=== PATIENT | female | born 1995 | race Two or more races ===

== ENCOUNTER 2024-01-20 16:54 | Inpatient (IN) | payer MEDICAID, SELFPAY ==
--- NOTE | ~2024-01-20 | XR_ITS ---
EXAMINATION: XR ABDOMEN KUB CLINICAL INDICATION: Constipation. COMPARISON: None available. TECHNIQUE: AP view of the abdomen. FINDINGS: There is moderate scattered stool throughout the colon without distention. The small bowel loops are normal caliber. No organomegaly. No gross bony abnormality. XR/XR KUB IMPRESSION: Moderate constipation. No acute process seen.
[2024-01-20 17:41] VITALS: BMI 28.6
[2024-01-20] MEDS: Acetaminophen 325 MG TABLET 650 MG PO (18:03)
--- NOTE | 2024-01-20 18:23 | PC.NURSE ---
Kel arrived as a direct admit from [facility]. She is Malay speaking only and during nurse to nurse and in paperwork they were questioning internal preoccupation vs cognitive delay. electrical contacts adjuster arrived and Kel was changed over and skin assessment was completed. Skin assessment was WNL. She was pleasant during the process but with limited communication even with the air technician. Poor historian and unable to give much history. Meds entered with MD based on medications given at [facility]. Medical history significant for type 2 diabetes no sliding scale given at [facility] but PT was given 15U lantus at . Paperwork indicates she was recently at [facility] as an iploc and was recently discharged home with family who report she was not sleeping, self dialoguing and having increased agitation. RN from sending facility reports she was quiet and in good behavioral control with limited communication. She was treated for UTI with keflex starting 01/15 with last dose given 01/19 in the AM. Kel signed a CV with the provider and an air technician. She is denying SI and verbalized to the provider she understood she was here for mental health and psychosis. Paperwork and further admission assessments to be completed with incoming shift.
[2024-01-20 18:58] VITALS: BP 131/76; PULSE 101; RESP 18; TEMP 36.9; O2SAT 98
[2024-01-20 20:08] VITALS: BP 128/72; PULSE 104; RESP 16; TEMP 37.1; O2SAT 96
[2024-01-20] MEDS: chlorproMAZINE HCl 100 MG TABLET 200 MG PO (20:38)
[2024-01-21 07:35] VITALS: BP 106/60; PULSE 76; RESP 16; TEMP 36.6; O2SAT 97
[2024-01-21 09:57] VITALS: BP 106/60; PULSE 76
[2024-01-21] MEDS: Propranolol HCL 10 MG TABLET PO (09:57)
[2024-01-21] MEDS: Empagliflozin 10 MG TABLET PO (09:59)
[2024-01-21 10:08] LABS: Glucose, Whole Blood 100 mg/dL (60-115)
--- NOTE | 2024-01-21 11:39 | P.CONHOSP_ITS ---
History of Present Illness Data of Consult Service Date: 01/21/24 Primary Care Provider: Unknown Physician HPI Reason for consult: Admission H&P Pt is a 28-year-old Romansh speaking female with a PMH significant for?d epression, anxiety, and bipolar 1 disorder who is admitted to [facility]3 psychiatry unit for disorganized and irrational behavior per family. Patient apparently was recently discharged from a 3 month inpatient psychiatric hospitalization at [facility]. Per family, patient has appeared to be responding to internal stimuli and has been confrontational and argumentative over things that have not occurred. Medical consult for admission H&P. Patient seen and evaluated with flame burner services. Patient overall minimally communicative and only selectively answering ROS queries with yes or no . Likely responding to internal stimuli. Pt denies any significant PMH or any acute medical complaints. Labs reviewed from [facility], significant for positive UA. Otherwise grossly unremarkable. Vitals stable. Review of Systems Review of Systems: Patient denies any acute medical complaints at this time [facility] Social History Household Members: Other Household Members Other:: parents Housing: House Do you presently have visiting nurse or other home services: No Patient Tobacco Use Status: Tobacco use Unknown Use of substances other than those prescribed or required for medical reasons: Unknown Currently Displaying Signs/Symptoms of Drug Intoxication Withdrawal: No Any prior treatment program specific to substance use: No Spiritual Healthcare Practices: unknown d/t mental status Advance Directives: No Advance Directives Information Provided: No Do you have a plan to hurt others: No Plan Recently lost weight without trying: No How much weight loss: Not applicable Eating poorly because of decreased appetite: No Nutrition screen score: 0 Nutrition Risks: No Nutritional Risk Patient : No : No Meds Allergies Allergy/AdvReac Type Severity Reaction Status Date / Time No Known Allergies Allergy Verified 01/20/24 17:37 Active Medications: Current Medications Acetaminophen (Acetaminophen 325 Mg Tablet) 650 mg PO Q6H PRN PRN Reason: Headache/Pain Mild Scale (1-3) Last Admin: 01/20/24 18:03 Dose: 650 mg Al Hydroxide/Mg Hydroxide (Magnesium Hydrox/Alum Hydrox 30 Ml Oral.Susp) 30 ml PO Q6H PRN PRN Reason: Heartburn/Nausea Chlorpromazine HCl (Chlorpromazine Hcl 100 Mg Tablet) 200 mg PO BEDTIME [facility] Last Admin: 01/20/24 20:38 Dose: 200 mg Empagliflozin (Empagliflozin 10 Mg Tablet) 10 mg PO DAILY [facility] Last Admin: 01/21/24 09:59 Dose: 10 mg Hydroxyzine HCl (Hydroxyzine Hcl 25 Mg Tablet) 25 mg PO Q6H PRN PRN Reason: Anxiety Lorazepam (Lorazepam 1 Mg Tablet) 1 mg PO DAILY PRN PRN Reason: moderate anxiety Magnesium Hydroxide (Milk Of Magnesia 30 Ml Oral.Susp) 30 ml PO DAILY PRN PRN Reason: Constipation Nicotine (Nicotine 21 Mg Patch.Td24) 21 mg TRANSDERMA DAILY PRN PRN Reason: smoking cessation Nicotine Polacrilex (Nicotine Polacrilex 2 Mg Gum) 4 mg BUCCAL Q2H PRN PRN Reason: nicotine cravings Olanzapine (Olanzapine 5 Mg Tablet) 5 mg PO TID PRN PRN Reason: agitation Propranolol HCl (Propranolol Hcl 10 Mg Tablet) 10 mg PO DAILY [facility]; Protocol Last Admin: 01/21/24 09:57 Dose: 10 mg Trazodone HCl (Trazodone Hcl 50 Mg Tablet) 50 mg PO BEDTIME MRX1 PRN PRN Reason: Insomnia Physical Exam Vital Signs and Narrative: Vital Signs: Last Vital Signs Temp 97.8 F 01/21/24 07:35 Pulse 76 01/21/24 09:57 Resp 16 01/21/24 07:35 BP 106/60 01/21/24 09:57 Pulse Ox 97 01/21/24 07:35 O2 Del Method Room Air 01/21/24 07:35 BMI result Body Mass Index 28.6 General: AOx3, no acute distress Resp: CTA bilaterally CVS: S1, S2, RRR GI: +BS, NT, no distention Skin: Warm, dry Neuro: Cranial nerves II-XII grossly intact bilaterally. Motor grossly intact bilaterally Extremities: No edema Psych: Selectively answering queries with one-word responses Results Labs Labs: Laboratory Results - last 24 hr 01/21/24 09:56 POC Glucose 100 Assessment and Plan (1) Medical clearance for psychiatric admission: Status: Acute Plan Pt is a 28-year-old Romansh speaking female with a PMH significant for?depression, anxiety, and bipolar 1 disorder who is admitted to psychiatry unit for disorganized and irrational behavior per family. Patient apparently was recently discharged from a 3 month inpatient psychiatric hospitalization at [facility]. Per family, patient has appeared to be responding to internal stimuli and has been confrontational and argumentative over things that have not occurred. Medical consult for admission H&P. Mood disorder Per Psychiatry Patient otherwise has known significant PMH, not on home medications, and has no acute medical concerns at this time. Will sign off. Thank you for allowing us to participate in the care of this patient. Please re-consult if any acute issue or need arises.
--- NOTE | 2024-01-21 13:57 | P.HPPS_ITS ---
HPI Date of Service: 01/21/24 Chief Complaint: Adjustment disorder HPI Narrative: per crisis eval, pt presented to [facility] ED with her step-father and her brother due to their concerns for her behavior at home. she was described as being more confrontational and arguing over things that have not occurred. step-father was concerned she may not have been taking her medications or that since she was recently discharged from another inpatient stay, medication changes have not been working for her. it was reported she may not have slept for several nights after leaving her most recent inpatient stay. pt denied psych Sx but appeared paranoid to crisis staff, apparently RIS and laughing inappropriately. she did report SI with plan to jump from family's second floor porch prior to arrival in the ED but denied SI once in the ED. labs concerning for UTI, given keflex in ED. on interview on mental health unit, pt largely non-verbal. when verbal very soft responses, nearly uniformly mono-syllabic. does communicate somewhat with nods and shakes of the head. does not provide answers to most questions, but does indicate she has no SI/HI/AVH. however, she appears distracted quite often and slowed, and also had several instances of spontaneous laughing. she was i nformed of plan to continue her on her home medications for now, to which she did not object. Past Psychiatric History: hosps: pt reports 2-3 prior. reportedly was at [facility] for 3 months just prior to current presentation. SA: pt indicates in the affirmative but cannot recall how many or when SIB: pt indicates yes, but does not elaborate. per notes, h/o punching self. outpt: unknown Medical Evaluation Reviewed: Hospitalist Julien Pending [facility] Family History: unknown Social History: lives with her mother, brother, and step-father. came from [place] two years ago. Substance History: tobacco - denies alcohol - denies cannabis - indicates she uses denies use of cocaine, opioids, other substances of abuse Trauma History: unknown Diagnostics Vital Signs (24Hr): Vital Signs - 24 hr 01/20/24 18:58 01/20/24 20:08 01/21/24 07:35 Temperature 98.4 F 98.7 F 97.8 F Pulse Rate 101 H 104 H 76 Respiratory Rate 18 16 16 Blood Pressure 131/76 128/72 106/60 Pulse Oximetry 98 96 97 Oxygen Delivery Method Room Air Room Air Room Air 01/21/24 09:57 Temperature Pulse Rate 76 Respiratory Rate Blood Pressure 106/60 Pulse Oximetry Oxygen Delivery Method BMI result Body Mass Index 28.6 Labs Labs: Laboratory Results - last 48 hr 01/21/24 09:56 POC Glucose 100 Meds/Allergies Allergies Allergies Allergy/AdvReac Type Severity Reaction Status Date / Time No Known Allergies Allergy Verified 01/20/24 17:37 Mental Status Exam Mental Status Exam Narrative: adequately dressed and groomed, hospital blanket draped over her head. dubiously cooperative with interview. remains physically present but appears to have difficulty answering questions. no PMA/PMR. speech very sparse, very soft. thoughts appear often blocked, but apparently linear in response to questions. often communicates by nodding or shaking her head rather than verbally. affect generally constricted with some periods of bizarre smiling and laughter. pt made no answer to inquiries on her mood state. she denied SI/HI/AVH. Assessment & Plan Assessment & Plan (1) Bipolar I disorder with mood-congruent psychotic features: Status: Acute Code(s): F31.9 - Bipolar disorder, unspecified Plan at admission, pt was started on thorazine 200 QHS while zyprexa 20 QHS was DCed, reasons unclear. continue thorazine for now until better understood. pt does not appear lithium toxic and renal fxn WNL. will check lithium tomorrow night. restart/continue home medications otherwise. Patient educated on: medication risk/benefits Reason for continued inpatient stay Substantial Risk for: inability to function Statement Statement: I have reviewed the history and physical and performed a pertinent examination on my patient. No changes have occurred unless specified. If the History and Physical was not performed prior to admission, the Hospitalist's service will be consulted for completing the admission physical. Time Spent With Patient Time: Total time managing care of this patient today __55__ minutes.
[2024-01-21 17:50] LABS: Glucose, Whole Blood 146 mg/dL (60-115)
[2024-01-21 19:40] VITALS: BP 121/74; PULSE 73; RESP 14; TEMP 36.4; O2SAT 100
[2024-01-21 20:31] LABS: Glucose, Whole Blood 137 mg/dL (60-115)
[2024-01-21] MEDS: Lithium Carbonate ER 300 MG TABLET.ER 600 MG PO (20:35)
[2024-01-21] MEDS: chlorproMAZINE HCl 100 MG TABLET 200 MG PO (20:36)
[2024-01-22 09:08] LABS: Glucose, Whole Blood 113 mg/dL (60-115)
--- NOTE | 2024-01-22 09:31 | HO.PSYCHPN ---
Subjective Subjective Date of Service: 01/22/24 Reason For Visit: Adjustment disorder Subjective Notes: Conditional Voluntary Interim History: Reviewed with Dr. Palmer. Met with washer engineer helper present. Pt spontaneously laughing at times; appears to be responding to internal stimuli. Guarded. Responding with one words answers to questions. Pt reports feeling okay . denies SI/HI/VH/AH. keeping to self. Medication Compliance: Yes Side effects from medications: No Attending Groups: No Review of Systems Review of Systems Patient denies any acute medical complaints at this time Mental Status Exam Mental Status Exam Narrative: Pt is alert and oriented; behavior is calm, guarded; dressed in hospital attire; mood is described as okay ; eye contact appropriate; Speech is normal rate, low volume and not pressured; laughing spontaneously when asked questions, does not answer as to why she is laughing; denies SI/HI/VH/AH. Diagnostics Vital Signs (24Hr): Vital Signs - 24 hr 01/21/24 09:57 01/21/24 19:40 Temperature 97.6 F Pulse Rate 76 73 Respiratory Rate 14 Blood Pressure 106/60 121/74 Pulse Oximetry 100 Oxygen Delivery Method Room Air BMI result Body Mass Index 28.6 Labs Labs: Laboratory Results - last 48 hr 01/21/24 01/21/24 01/21/24 09:56 17:39 20:27 POC Glucose 100 146 H 137 H 01/22/24 08:48 POC Glucose 113 Medications Medications Current Medications Acetaminophen (Acetaminophen 325 Mg Tablet) 650 mg PO Q6H PRN PRN Reason: Headache/Pain Mild Scale (1-3) Last Admin: 01/20/24 18:03 Dose: 650 mg Al Hydroxide/Mg Hydroxide (Magnesium Hydrox/Alum Hydrox 30 Ml Oral.Susp) 30 ml PO Q6H PRN PRN Reason: Heartburn/Nausea Chlorpromazine HCl (Chlorpromazine Hcl 100 Mg Tablet) 200 mg PO BEDTIME [facility] Last Admin: 01/21/24 20:36 Dose: 200 mg Empagliflozin (Empagliflozin 10 Mg Tablet) 10 mg PO DAILY [facility] Last Admin: 01/21/24 09:59 Dose: 10 mg Hydroxyzine HCl (Hydroxyzine Hcl 25 Mg Tablet) 25 mg PO Q6H PRN PRN Reason: Anxiety [place] Carbonate ([place] Carbonate Er 300 Mg Tablet.Er) 600 mg PO BEDTIME [facility] Last Admin: 01/21/24 20:35 Dose: 600 mg Lorazepam (Lorazepam 1 Mg Tablet) 1 mg PO DAILY PRN PRN Reason: moderate anxiety Magnesium Hydroxide (Milk Of Magnesia 30 Ml Oral.Susp) 30 ml PO DAILY PRN PRN Reason: Constipation Nicotine (Nicotine 21 Mg Patch.Td24) 21 mg TRANSDERMA DAILY PRN PRN Reason: smoking cessation Nicotine Polacrilex (Nicotine Polacrilex 2 Mg Gum) 4 mg BUCCAL Q2H PRN PRN Reason: nicotine cravings Olanzapine (Olanzapine 5 Mg Tablet) 5 mg PO TID PRN PRN Reason: agitation Propranolol HCl (Propranolol Hcl 10 Mg Tablet) 10 mg PO DAILY [facility]; Protocol Last Admin: 01/21/24 09:57 Dose: 10 mg Trazodone HCl (Trazodone Hcl 50 Mg Tablet) 50 mg PO BEDTIME MRX1 PRN PRN Reason: Insomnia Allergies Allergies Allergy/AdvReac Type Severity Reaction Status Date / Time No Known Allergies Allergy Verified 01/20/24 17:37 Assessment & Plan Assessment & Plan (1) Bipolar I disorder with mood-congruent psychotic features: Status: Acute Code(s): F31.9 - Bipolar disorder, unspecified Plan at admission, pt was started on thorazine 200 QHS while zyprexa 20 QHS was DCed, reasons unclear. continue thorazine for now until better understood. pt does not appear lithium toxic and renal fxn WNL. will check lithium tomorrow night. restart/continue home medications otherwise. 01/21: Met with washer engineer helper present. Pt spontaneously laughing at times; appears to be responding to internal stimuli. Guarded. Responding with one words answers to questions. Pt reports feeling okay . denies SI/HI/VH/AH. keeping to self. Patient educated on: diagnosis and medication risk/benefits Reason for continued inpatient stay Substantial Risk for: med/psych decompensation Time Spent With Patient Time: Total time managing care of this patient today _20___ minutes.
[2024-01-22 09:53] VITALS: BP 112/68; PULSE 75; RESP 15; TEMP 36.9; O2SAT 95
[2024-01-22] MEDS: Empagliflozin 10 MG TABLET PO (09:54)
[2024-01-22] MEDS: Propranolol HCL 10 MG TABLET PO (09:54)
[2024-01-22 12:53] LABS: Glucose, Whole Blood 166 mg/dL (60-115)
[2024-01-22 18:04] LABS: Glucose, Whole Blood 111 mg/dL (60-115)
[2024-01-22 20:00] VITALS: BP 138/67; PULSE 66; RESP 16; TEMP 37.1; O2SAT 98
[2024-01-22 20:58] LABS: Glucose, Whole Blood 115 mg/dL (60-115)
[2024-01-22 20:58] LABS: Alanine Aminotransferase 15 U/L (0-31); Albumin Level 4.4 g/dL (3.5-5.0); Alkaline Phosphatase 113 U/L (39-117); Anion Gap 14 (12-20); Aspartate Amino Transferase 13 U/L (5-31); Bilirubin Total 0.3 mg/dL (0.0-1.0); Blood Urea Nitrogen 14 mg/dL (9-16); Carbon Dioxide 25 mmol/L (22-29); Chloride 105 mmol/L (96-108); Cholesterol 174 mg/dL (<200); Creatinine Clr Calc Pharmacy 99.7; Estimated Glomerular Filt Rate > 60; Glucose Fasting 143 mg/dL (60-99); HDL Cholesterol 35 mg/dL (>40); LDL Cholesterol Calculated 70 mg/dL (<100); Potassium 4.2 mmol/L (3.3-5.1); Sodium 140 mmol/L (135-145); Total Protein 8.1 g/dL (6.5-8.0); Triglycerides 346 mg/dL (<150)
[2024-01-22] MEDS: Lithium Carbonate ER 300 MG TABLET.ER 600 MG PO (21:00)
[2024-01-22] MEDS: chlorproMAZINE HCl 100 MG TABLET 200 MG PO (21:00)
[2024-01-22] MEDS: hydrOXYzine HCL 25 MG TABLET PO (21:23)
--- NOTE | 2024-01-23 09:03 | HO.PSYCHPN ---
Subjective Subjective Date of Service: 01/23/24 Reason For Visit: Adjustment disorder Subjective Notes: Conditional Voluntary Interim History: Reviewed with Dr. Palmer. Met with signal and communications maintainer present. Pt laying in bed, staring at wall away from T/W and volumetric weigher. Pt not responding to questions despite numerous attempts. Pt refused medications and vital signs this morning. Medication Compliance: Intermittent Side effects from medications: No Attending Groups: No Review of Systems Review of Systems Yes Unobtainable due to mental status Mental Status Exam Mental Status Exam Narrative: Laying in bed, behavior is calm, guarded; dressed in hospital attire; poor eye contact; Pt declined to speak with T/W, not responding to questions. Diagnostics Vital Signs (24Hr): Vital Signs - 24 hr 01/22/24 09:53 01/22/24 20:00 Temperature 98.5 F 98.7 F Pulse Rate 75 66 Respiratory Rate 15 16 Blood Pressure 112/68 138/67 Pulse Oximetry 95 98 Oxygen Delivery Method Room Air Room Air BMI result Body Mass Index 28.6 Labs 01/22/24 20:21 Labs: Laboratory Results - last 48 hr 01/21/24 01/21/24 01/21/24 09:56 17:39 20:27 Sodium Potassium Chloride Carbon Dioxide Anion Gap BUN Creatinine Estim Creat Clear Calc Estimated GFR POC Glucose 100 146 H 137 H Fasting Glucose Calcium Total Bilirubin AST ALT Alkaline Phosphatase Total Protein Albumin Triglycerides Cholesterol LDL Cholesterol, Calc HDL Cholesterol [place] 01/22/24 01/22/24 01/22/24 08:48 12:35 17:56 Sodium Potassium Chloride Carbon Dioxide Anion Gap BUN Creatinine Estim Creat Clear Calc Estimated GFR POC Glucose 113 166 H 111 Fasting Glucose Calcium Total Bilirubin AST ALT Alkaline Phosphatase Total Protein Albumin Triglycerides Cholesterol LDL Cholesterol, Calc HDL Cholesterol [place] 01/22/24 01/22/24 20:21 20:53 Sodium 140 Potassium 4.2 Chloride 105 Carbon Dioxide 25 Anion Gap 14 BUN 14 Creatinine 0.85 Estim Creat Clear Calc 99.7 Estimated GFR > 60 POC Glucose 115 Fasting Glucose 143 H Calcium 10.0 Total Bilirubin 0.3 AST 13 ALT 15 Alkaline Phosphatase 113 Total Protein 8.1 H Albumin 4.4 Triglycerides 346 H Cholesterol 174 LDL Cholesterol, Calc 70 HDL Cholesterol 35 L [place] 0.10 L Medications Medications Current Medications Acetaminophen (Acetaminophen 325 Mg Tablet) 650 mg PO Q6H PRN PRN Reason: Headache/Pain Mild Scale (1-3) Last Admin: 01/20/24 18:03 Dose: 650 mg Al Hydroxide/Mg Hydroxide (Magnesium Hydrox/Alum Hydrox 30 Ml Oral.Susp) 30 ml PO Q6H PRN PRN Reason: Heartburn/Nausea Chlorpromazine HCl (Chlorpromazine Hcl 100 Mg Tablet) 200 mg PO BEDTIME [facility] Last Admin: 01/22/24 21:00 Dose: 200 mg Empagliflozin (Empagliflozin 10 Mg Tablet) 10 mg PO DAILY [facility] Last Admin: 01/22/24 09:54 Dose: 10 mg Hydroxyzine HCl (Hydroxyzine Hcl 25 Mg Tablet) 25 mg PO Q6H PRN PRN Reason: Anxiety Last Admin: 01/22/24 21:23 Dose: 25 mg [place] Carbonate ([place] Carbonate Er 300 Mg Tablet.Er) 600 mg PO BEDTIME ALFRED Last Admin: 01/22/24 21:00 Dose: 600 mg Lorazepam (Lorazepam 1 Mg Tablet) 1 mg PO DAILY PRN PRN Reason: moderate anxiety Magnesium Hydroxide (Milk Of Magnesia 30 Ml Oral.Susp) 30 ml PO DAILY PRN PRN Reason: Constipation Nicotine (Nicotine 21 Mg Patch.Td24) 21 mg TRANSDERMA DAILY PRN PRN Reason: smoking cessation Nicotine Polacrilex (Nicotine Polacrilex 2 Mg Gum) 4 mg BUCCAL Q2H PRN PRN Reason: nicotine cravings Olanzapine (Olanzapine 5 Mg Tablet) 5 mg PO TID PRN PRN Reason: agitation Propranolol HCl (Propranolol Hcl 10 Mg Tablet) 10 mg PO DAILY [facility]; Protocol Last Admin: 01/23/24 08:12 Dose: Not Given Trazodone HCl (Trazodone Hcl 50 Mg Tablet) 50 mg PO BEDTIME MRX1 PRN PRN Reason: Insomnia Allergies Allergies Allergy/AdvReac Type Severity Reaction Status Date / Time No Known Allergies Allergy Verified 01/20/24 17:37 Assessment & Plan Assessment & Plan (1) Bipolar I disorder with mood-congruent psychotic features: Status: Acute Code(s): F31.9 - Bipolar disorder, unspecified Plan at admission, pt was started on thorazine 200 QHS while zyprexa 20 QHS was DCed, reasons unclear. continue thorazine for now until better understood. pt does not appear lithium toxic and renal fxn WNL. will check lithium tomorrow night. restart/continue home medications otherwise. 01/21: Met with signal and communications maintainer present. Pt spontaneously laughing at times; appears to be responding to internal stimuli. Guarded. Responding with one words answers to questions. Pt reports feeling okay . denies SI/HI/VH/AH. keeping to self. 01/22: Pt laying in bed, staring at wall away from T/W and volumetric weigher. Pt not responding to questions despite numerous attempts. Pt refused medications and vital signs this morning. Continue to encourage medication compliance. Patient educated on: medication risk/benefits Reason for continued inpatient stay Substantial Risk for: med/psych decompensation Time Spent With Patient Time: Total time managing care of this patient today _20___ minutes.
[2024-01-23 12:45] LABS: Estimated Average Glucose 108 mg/dL; Hemoglobin A1c % 5.4 % (<6.0)
[2024-01-23 17:51] LABS: Glucose, Whole Blood 130 mg/dL (60-115)
[2024-01-23 20:00] VITALS: BP 142/67; PULSE 87; RESP 16; TEMP 37.2; O2SAT 97
[2024-01-23] MEDS: hydrOXYzine HCL 25 MG TABLET PO (21:18)
[2024-01-23] MEDS: Lithium Carbonate ER 300 MG TABLET.ER 600 MG PO (21:18)
[2024-01-23] MEDS: chlorproMAZINE HCl 100 MG TABLET 200 MG PO (21:19)
[2024-01-24 07:30] VITALS: BP 106/61; PULSE 83; RESP 16; TEMP 37.2; O2SAT 96
[2024-01-24 09:10] VITALS: BP 108/60; PULSE 83
[2024-01-24] MEDS: Propranolol HCL 10 MG TABLET PO (09:10)
[2024-01-24] MEDS: Empagliflozin 10 MG TABLET PO (09:10)
[2024-01-24 09:28] LABS: Glucose, Whole Blood 127 mg/dL (60-115)
--- NOTE | 2024-01-24 10:05 | HO.PSYCHPN ---
Subjective Subjective Date of Service: 01/24/24 Reason For Visit: Adjustment disorder Subjective Notes: Conditional Voluntary Interim History: Reviewed with Dr. Palmer. Met with spanish interpreter/translator present. Pt laying in bed, staring at T/W and aerial photograph interpreter but not responding to questions despite numerous attempts. Pt medication compliant this morning. observed eating breakfast. keeping to self. Medication Compliance: Intermittent Attending Groups: No Review of Systems Review of Systems Yes Unobtainable due to mental status Mental Status Exam Mental Status Exam Narrative: Laying in bed, behavior is calm, guarded; dressed in hospital attire; intense eye contact; Pt declined to speak with T/W, not responding to questions. Diagnostics Vital Signs (24Hr): Vital Signs - 24 hr 01/23/24 20:00 01/24/24 07:30 01/24/24 09:10 Temperature 98.9 F 98.9 F Pulse Rate 87 83 83 Respiratory Rate 16 16 Blood Pressure 142/67 H 106/61 108/60 Pulse Oximetry 97 96 Oxygen Delivery Method Room Air Room Air BMI result Body Mass Index 28.6 Labs 01/22/24 20:21 Labs: Laboratory Results - last 48 hr 01/22/24 01/22/24 01/22/24 12:35 17:56 20:21 Sodium 140 Potassium 4.2 Chloride 105 Carbon Dioxide 25 Anion Gap 14 BUN 14 Creatinine 0.85 Estim Creat Clear Calc 99.7 Estimated GFR > 60 POC Glucose 166 H 111 Fasting Glucose 143 H Estimat Average Glucose 108 Hemoglobin A1c % 5.4 Calcium 10.0 Total Bilirubin 0.3 AST 13 ALT 15 Alkaline Phosphatase 113 Total Protein 8.1 H Albumin 4.4 Triglycerides 346 H Cholesterol 174 LDL Cholesterol, Calc 70 HDL Cholesterol 35 L [place] 0.10 L 01/22/24 01/23/24 01/24/24 20:53 17:38 09:23 Sodium Potassium Chloride Carbon Dioxide Anion Gap BUN Creatinine Estim Creat Clear Calc Estimated GFR POC Glucose 115 130 H 127 H Fasting Glucose Estimat Average Glucose Hemoglobin A1c % Calcium Total Bilirubin AST ALT Alkaline Phosphatase Total Protein Albumin Triglycerides Cholesterol LDL Cholesterol, Calc HDL Cholesterol [place] Medications Medications Current Medications Acetaminophen (Acetaminophen 325 Mg Tablet) 650 mg PO Q6H PRN PRN Reason: Headache/Pain Mild Scale (1-3) Last Admin: 01/20/24 18:03 Dose: 650 mg Al Hydroxide/Mg Hydroxide (Magnesium Hydrox/Alum Hydrox 30 Ml Oral.Susp) 30 ml PO Q6H PRN PRN Reason: Heartburn/Nausea Chlorpromazine HCl (Chlorpromazine Hcl 100 Mg Tablet) 200 mg PO BEDTIME ALFRED Last Admin: 01/23/24 21:19 Dose: 200 mg Empagliflozin (Empagliflozin 10 Mg Tablet) 10 mg PO DAILY ALFRED Last Admin: 01/24/24 09:10 Dose: 10 mg Hydroxyzine HCl (Hydroxyzine Hcl 25 Mg Tablet) 25 mg PO Q6H PRN PRN Reason: Anxiety Last Admin: 01/23/24 21:18 Dose: 25 mg [place] Carbonate ([place] Carbonate Er 300 Mg Tablet.Er) 600 mg PO BEDTIME ALFRED Last Admin: 01/23/24 21:18 Dose: 600 mg Lorazepam (Lorazepam 1 Mg Tablet) 1 mg PO DAILY PRN PRN Reason: moderate anxiety Magnesium Hydroxide (Milk Of Magnesia 30 Ml Oral.Susp) 30 ml PO DAILY PRN PRN Reason: Constipation Nicotine (Nicotine 21 Mg Patch.Td24) 21 mg TRANSDERMA DAILY PRN PRN Reason: smoking cessation Nicotine Polacrilex (Nicotine Polacrilex 2 Mg Gum) 4 mg BUCCAL Q2H PRN PRN Reason: nicotine cravings Olanzapine (Olanzapine 5 Mg Tablet) 5 mg PO TID PRN PRN Reason: agitation Propranolol HCl (Propranolol Hcl 10 Mg Tablet) 10 mg PO DAILY [facility]; Protocol Last Admin: 01/24/24 09:10 Dose: 10 mg Trazodone HCl (Trazodone Hcl 50 Mg Tablet) 50 mg PO BEDTIME MRX1 PRN PRN Reason: Insomnia Allergies Allergies Allergy/AdvReac Type Severity Reaction Status Date / Time No Known Allergies Allergy Verified 01/20/24 17:37 Assessment & Plan Assessment & Plan (1) Bipolar I disorder with mood-congruent psychotic features: Status: Acute Code(s): F31.9 - Bipolar disorder, unspecified Plan at admission, pt was started on thorazine 200 QHS while zyprexa 20 QHS was DCed, reasons unclear. continue thorazine for now until better understood. pt does not appear lithium toxic and renal fxn WNL. will check lithium tomorrow night. restart/continue home medications otherwise. 01/21: Met with spanish interpreter/translator present. Pt spontaneously laughing at times; appears to be responding to internal stimuli. Guarded. Responding with one words answers to questions. Pt reports feeling okay . denies SI/HI/VH/AH. keeping to self. 01/22: Pt laying in bed, staring at wall away from T/W and aerial photograph interpreter. Pt not responding to questions despite numerous attempts. Pt refused medications and vital signs this morning. Continue to encourage medication compliance. 01/23: Met with spanish interpreter/translator present. Pt laying in bed, staring at T/W and aerial photograph interpreter but not responding to questions despite numerous attempts. Pt medication compliant this morning. observed eating breakfast. keeping to self. Patient educated on: medication risk/benefits Reason for continued inpatient stay Substantial Risk for: med/psych decompensation Time Spent With Patient Time: Total time managing care of this patient today _20___ minutes.
[2024-01-24 12:23] LABS: Glucose, Whole Blood 149 mg/dL (60-115)
[2024-01-24 13:01] LABS: Glucose, Whole Blood 115 mg/dL (60-115)
[2024-01-24 17:21] LABS: Glucose, Whole Blood 102 mg/dL (60-115)
[2024-01-24 20:00] VITALS: BP 128/66; PULSE 92; RESP 16; TEMP 36.9; O2SAT 97
[2024-01-24] MEDS: chlorproMAZINE HCl 100 MG TABLET 200 MG PO (20:38)
[2024-01-24] MEDS: Lithium Carbonate ER 300 MG TABLET.ER 600 MG PO (20:38)
[2024-01-24 20:44] LABS: Glucose, Whole Blood 142 mg/dL (60-115)
[2024-01-24] MEDS: Acetaminophen 325 MG TABLET 650 MG PO (21:29)
[2024-01-25 07:30] VITALS: BP 120/74; PULSE 69; RESP 16; TEMP 36.9; O2SAT 98
[2024-01-25 08:53] LABS: Glucose, Whole Blood 120 mg/dL (60-115)
--- NOTE | 2024-01-25 16:37 | HO.PSYCHPN ---
Subjective Subjective Date of Service: 01/25/24 Reason For Visit: Adjustment disorder Interim History: awake, mute. no change in presentation per staff. Mental Status Exam Mental Status Exam Narrative: Laying in bed, behavior is calm, guarded; dressed in hospital attire; intense eye contact; Pt declined to speak with T/W, not responding to questions. Diagnostics Vital Signs (24Hr): Vital Signs - 24 hr 01/24/24 20:00 01/25/24 07:30 Temperature 98.5 F 98.4 F Pulse Rate 92 69 Respiratory Rate 16 16 Blood Pressure 128/66 120/74 Pulse Oximetry 97 98 Oxygen Delivery Method Room Air Room Air BMI result Body Mass Index 28.6 Labs 01/22/24 20:21 Labs: Laboratory Results - last 48 hr 01/23/24 01/24/24 01/24/24 17:38 09:23 12:18 POC Glucose 130 H 127 H 149 H 01/24/24 01/24/24 01/24/24 12:56 17:14 20:37 POC Glucose 115 102 142 H 01/25/24 08:34 POC Glucose 120 H Medications Medications Current Medications Acetaminophen (Acetaminophen 325 Mg Tablet) 650 mg PO Q6H PRN PRN Reason: Headache/Pain Mild Scale (1-3) Last Admin: 01/24/24 21:29 Dose: 650 mg Al Hydroxide/Mg Hydroxide (Magnesium Hydrox/Alum Hydrox 30 Ml Oral.Susp) 30 ml PO Q6H PRN PRN Reason: Heartburn/Nausea Chlorpromazine HCl (Chlorpromazine Hcl 100 Mg Tablet) 200 mg PO BEDTIME ALFRED Last Admin: 01/24/24 20:38 Dose: 200 mg Empagliflozin (Empagliflozin 10 Mg Tablet) 10 mg PO DAILY ALFRED Last Admin: 01/25/24 15:19 Dose: Not Given Hydroxyzine HCl (Hydroxyzine Hcl 25 Mg Tablet) 25 mg PO Q6H PRN PRN Reason: Anxiety Last Admin: 01/23/24 21:18 Dose: 25 mg [place] Carbonate ([place] Carbonate Er 300 Mg Tablet.Er) 600 mg PO BEDTIME ALFRED Last Admin: 01/24/24 20:38 Dose: 600 mg Lorazepam (Lorazepam 1 Mg Tablet) 1 mg PO DAILY PRN PRN Reason: moderate anxiety Magnesium Hydroxide (Milk Of Magnesia 30 Ml Oral.Susp) 30 ml PO DAILY PRN PRN Reason: Constipation Nicotine (Nicotine 21 Mg Patch.Td24) 21 mg TRANSDERMA DAILY PRN PRN Reason: smoking cessation Nicotine Polacrilex (Nicotine Polacrilex 2 Mg Gum) 4 mg BUCCAL Q2H PRN PRN Reason: nicotine cravings Olanzapine (Olanzapine 5 Mg Tablet) 5 mg PO TID PRN PRN Reason: agitation Propranolol HCl (Propranolol Hcl 10 Mg Tablet) 10 mg PO DAILY ALFRED; Protocol Last Admin: 01/25/24 15:19 Dose: Not Given Trazodone HCl (Trazodone Hcl 50 Mg Tablet) 50 mg PO BEDTIME MRX1 PRN PRN Reason: Insomnia Allergies Allergies Allergy/AdvReac Type Severity Reaction Status Date / Time No Known Allergies Allergy Verified 01/20/24 17:37 Assessment & Plan Assessment & Plan (1) Bipolar I disorder with mood-congruent psychotic features: Status: Acute Code(s): F31.9 - Bipolar disorder, unspecified Plan at admission, pt was started on thorazine 200 QHS while zyprexa 20 QHS was DCed, reasons unclear. continue thorazine for now until better understood. pt does not appear lithium toxic and renal fxn WNL. will check lithium tomorrow night. restart/continue home medications otherwise. 01/21: Met with chief clinical dietitian present. Pt spontaneously laughing at times; appears to be responding to internal stimuli. Guarded. Responding with one words answers to questions. Pt reports feeling okay . denies SI/HI/VH/AH. keeping to self. 01/22: Pt laying in bed, staring at wall away from T/W and manager operations. Pt not responding to questions despite numerous attempts. Pt refused medications and vital signs this morning. Continue to encourage medication compliance. 01/23: Met with chief clinical dietitian present. Pt laying in bed, staring at T/W and manager operations but not responding to questions despite numerous attempts. Pt medication compliant this morning. observed eating breakfast. keeping to self. 01/24: no change in presentation. check lithium level tomorrow delmi. not consistently taking neuroleptics but IS consistently taking lithium. Reason for continued inpatient stay Substantial Risk for: inability to function and rapid decompensation Time Spent With Patient Time: Total time managing care of this patient today __25__ minutes.
[2024-01-25 20:00] VITALS: BP 120/81; PULSE 114; RESP 16; TEMP 36.9; O2SAT 97
[2024-01-25] MEDS: chlorproMAZINE HCl 100 MG TABLET 200 MG PO (20:48)
[2024-01-25] MEDS: Lithium Carbonate ER 300 MG TABLET.ER 600 MG PO (20:49)
[2024-01-26 07:44] VITALS: BP 101/71; PULSE 92; RESP 16; TEMP 36.4; O2SAT 96
--- NOTE | 2024-01-26 16:00 | HO.PSYCHPN ---
Subjective Subjective Date of Service: 01/26/24 Reason For Visit: Adjustment disorder Interim History: mute, perhaps some very faint guttural responses, some head-shaking in response to some questions. answers ambiguous, generally denying problems and without requests or complaints. per staff, mute with ppl, self-dialoguing. per interpreter and translator collateral, he saw her with financial ppl yesterday and she was fully verbal and collaborative. Mental Status Exam Mental Status Exam Narrative: Laying in bed, behavior is calm, guarded; dressed in hospital attire; intense eye contact; Pt declined to speak with T/W, not clearly responding to questions. Diagnostics Vital Signs (24Hr): Vital Signs - 24 hr 01/25/24 20:00 01/26/24 07:44 Temperature 98.4 F 97.5 F Pulse Rate 114 H 92 Respiratory Rate 16 16 Blood Pressure 120/81 101/71 Pulse Oximetry 97 96 Oxygen Delivery Method Room Air Room Air BMI result Body Mass Index 28.6 Labs 01/22/24 20:21 Labs: Laboratory Results - last 48 hr 01/24/24 01/24/24 01/25/24 17:14 20:37 08:34 POC Glucose 102 142 H 120 H Medications Medications Current Medications Acetaminophen (Acetaminophen 325 Mg Tablet) 650 mg PO Q6H PRN PRN Reason: Headache/Pain Mild Scale (1-3) Last Admin: 01/24/24 21:29 Dose: 650 mg Al Hydroxide/Mg Hydroxide (Magnesium Hydrox/Alum Hydrox 30 Ml Oral.Susp) 30 ml PO Q6H PRN PRN Reason: Heartburn/Nausea Chlorpromazine HCl (Chlorpromazine Hcl 100 Mg Tablet) 200 mg PO BEDTIME ALFRED Last Admin: 01/25/24 20:48 Dose: 200 mg Empagliflozin (Empagliflozin 10 Mg Tablet) 10 mg PO DAILY ALFRED Last Admin: 01/26/24 09:32 Dose: Not Given Hydroxyzine HCl (Hydroxyzine Hcl 25 Mg Tablet) 25 mg PO Q6H PRN PRN Reason: Anxiety Last Admin: 01/23/24 21:18 Dose: 25 mg [place] Carbonate ([place] Carbonate Er 300 Mg Tablet.Er) 600 mg PO BEDTIME ALFRED Last Admin: 01/25/24 20:49 Dose: 600 mg Magnesium Hydroxide (Milk Of Magnesia 30 Ml Oral.Susp) 30 ml PO DAILY PRN PRN Reason: Constipation Nicotine (Nicotine 21 Mg Patch.Td24) 21 mg TRANSDERMA DAILY PRN PRN Reason: smoking cessation Nicotine Polacrilex (Nicotine Polacrilex 2 Mg Gum) 4 mg BUCCAL Q2H PRN PRN Reason: nicotine cravings Olanzapine (Olanzapine 5 Mg Tablet) 5 mg PO TID PRN PRN Reason: agitation Propranolol HCl (Propranolol Hcl 10 Mg Tablet) 10 mg PO DAILY ALFRED; Protocol Last Admin: 01/26/24 09:32 Dose: Not Given Trazodone HCl (Trazodone Hcl 50 Mg Tablet) 50 mg PO BEDTIME MRX1 PRN PRN Reason: Insomnia Allergies Allergies Allergy/AdvReac Type Severity Reaction Status Date / Time No Known Allergies Allergy Verified 01/20/24 17:37 Assessment & Plan Assessment & Plan (1) Bipolar I disorder with mood-congruent psychotic features: Status: Acute Code(s): F31.9 - Bipolar disorder, unspecified (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 continue thorazine for now until better understood. pt does not appear lithium toxic and renal fxn WNL. will check lithium tomorrow night. restart/continue home medications otherwise. 01/21: Met with spanish interpreter/translator present. Pt spontaneously laughing at times; appears to be responding to internal stimuli. Guarded. Responding with one words answers to questions. Pt reports feeling okay . denies SI/HI/VH/AH. keeping to self. 01/22: Pt laying in bed, staring at wall away from T/W and interpreter and translator. Pt not responding to questions despite numerous attempts. Pt refused medications and vital signs this morning. Continue to encourage medication compliance. 01/23: Met with spanish interpreter/translator present. Pt laying in bed, staring at T/W and interpreter and translator but not responding to questions despite numerous attempts. Pt medication compliant this morning. observed eating breakfast. keeping to self. 01/24: no change in presentation. check lithium level tomorrow delmi. not consistently taking neuroleptics but IS consistently taking lithium. 01/25: selectively mute. per interpreter and translator collateral, he was with her when financial services met with her yesterday and she was fully verbal and collaborative. labs tonight. continue current mgmt. Reason for continued inpatient stay Substantial Risk for: inability to function Time Spent With Patient Time: Total time managing care of this patient today __25__ minutes.
[2024-01-26 20:00] VITALS: BP 125/89; PULSE 110; RESP 18; TEMP 36.9; O2SAT 99
[2024-01-26] MEDS: chlorproMAZINE HCl 100 MG TABLET 200 MG PO (20:16)
[2024-01-26] MEDS: Lithium Carbonate ER 300 MG TABLET.ER 600 MG PO (20:17)
[2024-01-26 20:34] LABS: Lithium 0.36 mmol/L (0.60-1.20)
[2024-01-26 20:38] LABS: Anion Gap 16 (12-20); Blood Urea Nitrogen 13 mg/dL (9-16); Calcium 9.7 mg/dL (8.4-10.2); Carbon Dioxide 24 mmol/L (22-29); Chloride 104 mmol/L (96-108); Creatinine Clr Calc Pharmacy 111.5; Estimated Glomerular Filt Rate > 60; Glucose Random 112 mg/dL (60-115); Potassium 4.2 mmol/L (3.3-5.1); Sodium 140 mmol/L (135-145)
[2024-01-27 07:35] VITALS: BP 117/64; PULSE 83; RESP 16; TEMP 36.3; O2SAT 96
[2024-01-27 09:28] VITALS: BP 117/64; PULSE 83
[2024-01-27] MEDS: Empagliflozin 10 MG TABLET PO (09:28)
[2024-01-27] MEDS: Propranolol HCL 10 MG TABLET PO (09:28)
[2024-01-27 13:25] VITALS: BMI 28.6
--- NOTE | 2024-01-27 17:32 | HO.PSYCHPN ---
Subjective Subjective Date of Service: 01/27/24 Reason For Visit: Adjustment disorder Interim History: somewhat more communicative today. says she is feeling very tired, attributes the feeling to medications. agreeable to decrease HS thorazine from 200 mg to 150 mg. no other complaints or requests. Mental Status Exam Mental Status Exam Narrative: Laying in bed, behavior is calm, guarded; dressed in hospital attire; intense eye contact; not clearly responding to questions, but some soft utterances and head movements. thoughts apparently linear and logical. affect blunted. mood tired. no SI/HI/AVH expressed. Diagnostics Vital Signs (24Hr): Vital Signs - 24 hr 01/26/24 20:00 01/27/24 07:35 01/27/24 09:28 Temperature 98.4 F 97.4 F Pulse Rate 110 H 83 83 Respiratory Rate 18 16 Blood Pressure 125/89 117/64 117/64 Pulse Oximetry 99 96 Oxygen Delivery Method Room Air Room Air BMI result Body Mass Index 28.6 Labs 01/26/24 20:05 Labs: Laboratory Results - last 48 hr 01/26/24 20:05 Sodium 140 Potassium 4.2 Chloride 104 Carbon Dioxide 24 Anion Gap 16 BUN 13 Creatinine 0.76 Estim Creat Clear Calc 111.5 Estimated GFR > 60 Random Glucose 112 Calcium 9.7 [place] 0.36 L Medications Medications Current Medications Acetaminophen (Acetaminophen 325 Mg Tablet) 650 mg PO Q6H PRN PRN Reason: Headache/Pain Mild Scale (1-3) Last Admin: 01/24/24 21:29 Dose: 650 mg Al Hydroxide/Mg Hydroxide (Magnesium Hydrox/Alum Hydrox 30 Ml Oral.Susp) 30 ml PO Q6H PRN PRN Reason: Heartburn/Nausea Chlorpromazine HCl (Chlorpromazine Hcl 25 Mg Tablet) 150 mg PO BEDTIME ALFRED Empagliflozin (Empagliflozin 10 Mg Tablet) 10 mg PO DAILY ALFRED Last Admin: 01/27/24 09:28 Dose: 10 mg Hydroxyzine HCl (Hydroxyzine Hcl 25 Mg Tablet) 25 mg PO Q6H PRN PRN Reason: Anxiety Last Admin: 01/23/24 21:18 Dose: 25 mg [place] Carbonate ([place] Carbonate Er 300 Mg Tablet.Er) 600 mg PO BEDTIME ALFRED Last Admin: 01/26/24 20:17 Dose: 600 mg Magnesium Hydroxide (Milk Of Magnesia 30 Ml Oral.Susp) 30 ml PO DAILY PRN PRN Reason: Constipation Nicotine (Nicotine 21 Mg Patch.Td24) 21 mg TRANSDERMA DAILY PRN PRN Reason: smoking cessation Nicotine Polacrilex (Nicotine Polacrilex 2 Mg Gum) 4 mg BUCCAL Q2H PRN PRN Reason: nicotine cravings Olanzapine (Olanzapine 5 Mg Tablet) 5 mg PO TID PRN PRN Reason: agitation Propranolol HCl (Propranolol Hcl 10 Mg Tablet) 10 mg PO DAILY ALFRED; Protocol Last Admin: 01/27/24 09:28 Dose: 10 mg Trazodone HCl (Trazodone Hcl 50 Mg Tablet) 50 mg PO BEDTIME MRX1 PRN PRN Reason: Insomnia Allergies Allergies Allergy/AdvReac Type Severity Reaction Status Date / Time No Known Allergies Allergy Verified 01/20/24 17:37 Assessment & Plan Assessment & Plan (1) Bipolar I disorder with mood-congruent psychotic features: Status: Acute Code(s): F31.9 - Bipolar disorder, unspecified (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 continue thorazine for now until better understood. pt does not appear lithium toxic and renal fxn WNL. will check lithium tomorrow night. restart/continue home medications otherwise. 01/21: Met with grocery department manager present. Pt spontaneously laughing at times; appears to be responding to internal stimuli. Guarded. Responding with one words answers to questions. Pt reports feeling okay . denies SI/HI/VH/AH. keeping to self. 01/22: Pt laying in bed, staring at wall away from T/W and animal attendants and trainers. Pt not responding to questions despite numerous attempts. Pt refused medications and vital signs this morning. Continue to encourage medication compliance. 01/23: Met with grocery department manager present. Pt laying in bed, staring at T/W and animal attendants and trainers but not responding to questions despite numerous attempts. Pt medication compliant this morning. observed eating breakfast. keeping to self. 01/24: no change in presentation. check lithium level tomorrow delmi. not consistently taking neuroleptics but IS consistently taking lithium. 01/25: selectively mute. per animal attendants and trainers collateral, he was with her when financial services met with her yesterday and she was fully verbal and collaborative. labs tonight. continue current mgmt. 01/26: mildly more communicative today. lithium level 0.36, BMP WNL. increase lithium dosing tonight. Reason for continued inpatient stay Substantial Risk for: inability to function Time Spent With Patient Time: Total time managing care of this patient today ____ minutes.
[2024-01-27] MEDS: hydrOXYzine HCL 25 MG TABLET PO (18:13)
[2024-01-27 20:00] VITALS: BP 125/83; PULSE 93; RESP 14; TEMP 36.4; O2SAT 100
[2024-01-27] MEDS: chlorproMAZINE HCl 25 MG TABLET 150 MG PO (20:35)
[2024-01-27] MEDS: Lithium Carbonate ER 450 MG TABLET.ER 900 MG PO (21:59)
[2024-01-28 07:40] VITALS: BP 113/62; PULSE 78; RESP 16; TEMP 36.5; O2SAT 96
[2024-01-28 08:46] VITALS: BP 113/62; PULSE 78
[2024-01-28] MEDS: Propranolol HCL 10 MG TABLET PO (08:46)
[2024-01-28] MEDS: Empagliflozin 10 MG TABLET PO (08:46)
--- NOTE | 2024-01-28 16:43 | HO.PSYCHPN ---
Subjective Subjective Date of Service: 01/28/24 Reason For Visit: Adjustment disorder Interim History: sits up in her bed. responsive to questions. a bit more verbal, answering more questions with head nods and shakes. denies any problems, says there is nothing we can do for her right now. per staff, denies depression. endorses anxiety. inappropriate spontaneous laughter. no SI. no acute behaviors. slept 7 hours. observed laughing and talking with a peer. Mental Status Exam Mental Status Exam Narrative: Laying in bed but sits up quickly, behavior is calm, guarded; dressed in hospital attire; intense eye contact; responding more to questions, more soft utterances and head movements. thoughts apparently linear and logical. affect blunted. mood euthymic. no SI/HI/AVH expressed. Diagnostics Vital Signs (24Hr): Vital Signs - 24 hr 01/27/24 20:00 01/28/24 07:40 01/28/24 08:46 Temperature 97.5 F 97.7 F Pulse Rate 93 78 78 Respiratory Rate 14 16 Blood Pressure 125/83 113/62 113/62 Pulse Oximetry 100 96 Oxygen Delivery Method Room Air Room Air BMI result Body Mass Index 28.6 Labs 01/26/24 20:05 Labs: Laboratory Results - last 48 hr 01/26/24 20:05 Sodium 140 Potassium 4.2 Chloride 104 Carbon Dioxide 24 Anion Gap 16 BUN 13 Creatinine 0.76 Estim Creat Clear Calc 111.5 Estimated GFR > 60 Random Glucose 112 Calcium 9.7 [place] 0.36 L Medications Medications Current Medications Acetaminophen (Acetaminophen 325 Mg Tablet) 650 mg PO Q6H PRN PRN Reason: Headache/Pain Mild Scale (1-3) Last Admin: 01/24/24 21:29 Dose: 650 mg Al Hydroxide/Mg Hydroxide (Magnesium Hydrox/Alum Hydrox 30 Ml Oral.Susp) 30 ml PO Q6H PRN PRN Reason: Heartburn/Nausea Chlorpromazine HCl (Chlorpromazine Hcl 25 Mg Tablet) 150 mg PO BEDTIME ALFRED Last Admin: 01/27/24 20:35 Dose: 150 mg Empagliflozin (Empagliflozin 10 Mg Tablet) 10 mg PO DAILY ALFRED Last Admin: 01/28/24 08:46 Dose: 10 mg Hydroxyzine HCl (Hydroxyzine Hcl 25 Mg Tablet) 25 mg PO Q6H PRN PRN Reason: Anxiety Last Admin: 01/27/24 18:13 Dose: 25 mg [place] Carbonate ([place] Carbonate Er 450 Mg Tablet.Er) 900 mg PO BEDTIME ALFRED Last Admin: 01/27/24 21:59 Dose: 900 mg Magnesium Hydroxide (Milk Of Magnesia 30 Ml Oral.Susp) 30 ml PO DAILY PRN PRN Reason: Constipation Nicotine (Nicotine 21 Mg Patch.Td24) 21 mg TRANSDERMA DAILY PRN PRN Reason: smoking cessation Nicotine Polacrilex (Nicotine Polacrilex 2 Mg Gum) 4 mg BUCCAL Q2H PRN PRN Reason: nicotine cravings Olanzapine (Olanzapine 5 Mg Tablet) 5 mg PO TID PRN PRN Reason: agitation Propranolol HCl (Propranolol Hcl 10 Mg Tablet) 10 mg PO DAILY [facility]FR[facility]; Protocol Last Admin: 01/28/24 08:46 Dose: 10 mg Trazodone HCl (Trazodone Hcl 50 Mg Tablet) 50 mg PO BEDTIME MRX1 PRN PRN Reason: Insomnia Allergies Allergies Allergy/AdvReac Type Severity Reaction Status Date / Time No Known Allergies Allergy Verified 01/20/24 17:37 Assessment & Plan Assessment & Plan (1) Bipolar I disorder with mood-congruent psychotic features: Status: Acute Code(s): F31.9 - Bipolar disorder, unspecified (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 continue thorazine for now until better understood. pt does not appear lithium toxic and renal fxn WNL. will check lithium tomorrow night. restart/continue home medications otherwise. 01/21: Met with certification and selection specialist present. Pt spontaneously laughing at times; appears to be responding to internal stimuli. Guarded. Responding with one words answers to questions. Pt reports feeling okay . denies SI/HI/VH/AH. keeping to self. 01/22: Pt laying in bed, staring at wall away from T/W and handbell choir director. Pt not responding to questions despite numerous attempts. Pt refused medications and vital signs this morning. Continue to encourage medication compliance. 01/23: Met with certification and selection specialist present. Pt laying in bed, staring at T/W and handbell choir director but not responding to questions despite numerous attempts. Pt medication compliant this morning. observed eating breakfast. keeping to self. 01/24: no change in presentation. check lithium level tomorrow delmi. not consistently taking neuroleptics but IS consistently taking lithium. 01/25: selectively mute. per handbell choir director collateral, he was with her when financial services met with her yesterday and she was fully verbal and collaborative. labs tonight. continue current mgmt. 01/26: mildly more communicative today. lithium level 0.36, BMP WNL. increase lithium dosing tonight. 01/27: more responsive and verbal today. continue current mgmt. Reason for continued inpatient stay Substantial Risk for: inability to function and rapid decompensation Time Spent With Patient Time: Total time managing care of this patient today ____ minutes.
[2024-01-28] MEDS: Acetaminophen 325 MG TABLET 650 MG PO (18:09)
[2024-01-28 20:35] VITALS: BP 136/92; PULSE 91; RESP 18; TEMP 36.7; O2SAT 99
[2024-01-28] MEDS: chlorproMAZINE HCl 25 MG TABLET 150 MG PO (20:44)
[2024-01-28] MEDS: Lithium Carbonate ER 450 MG TABLET.ER 900 MG PO (20:44)
[2024-01-28 22:41] LABS: Glucose, Whole Blood 163 mg/dL (60-115)
--- NOTE | 2024-01-29 08:16 | HO.PSYCHPN ---
Subjective Subjective Date of Service: 01/29/24 Reason For Visit: Adjustment disorder Interim History: met with patient. Discussed with Nursing. On interactions and laughing to self. Today was guarded. Primarily hiding under the blankets with eyes peeking out. Stated she was okay. Inappropriate laughter. Was internally preoccupied. Medication Compliance: Yes Side effects from medications: No Attending Groups: No Review of Systems Acute medical concerns: No Review of Systems Review of Systems Unremarkable Mental Status Exam Mental Status Exam Narrative: Laying in bed but sits up quickly, behavior is calm, guarded; dressed in hospital attire; intense eye contact; responding more to questions, more soft utterances and head movements. thoughts apparently linear and logical. affect blunted. mood euthymic. no SI/HI/AVH expressed. Diagnostics Vital Signs (24Hr): Vital Signs - 24 hr 01/28/24 08:46 01/28/24 20:35 Temperature 98.0 F Pulse Rate 78 91 Respiratory Rate 18 Blood Pressure 113/62 136/92 H Pulse Oximetry 99 Oxygen Delivery Method Room Air BMI result Body Mass Index 28.6 Labs 01/26/24 20:05 Labs: Laboratory Results - last 48 hr 01/28/24 22:36 POC Glucose 163 H Medications Medications Current Medications Acetaminophen (Acetaminophen 325 Mg Tablet) 650 mg PO Q6H PRN PRN Reason: Headache/Pain Mild Scale (1-3) Last Admin: 01/28/24 18:09 Dose: 650 mg Al Hydroxide/Mg Hydroxide (Magnesium Hydrox/Alum Hydrox 30 Ml Oral.Susp) 30 ml PO Q6H PRN PRN Reason: Heartburn/Nausea Chlorpromazine HCl (Chlorpromazine Hcl 25 Mg Tablet) 150 mg PO BEDTIME ALFRED Last Admin: 01/28/24 20:44 Dose: 150 mg Empagliflozin (Empagliflozin 10 Mg Tablet) 10 mg PO DAILY ALFRED Last Admin: 01/28/24 08:46 Dose: 10 mg Hydroxyzine HCl (Hydroxyzine Hcl 25 Mg Tablet) 25 mg PO Q6H PRN PRN Reason: Anxiety Last Admin: 01/27/24 18:13 Dose: 25 mg [place] Carbonate ([place] Carbonate Er 450 Mg Tablet.Er) 900 mg PO BEDTIME ALFRED Last Admin: 01/28/24 20:44 Dose: 900 mg Magnesium Hydroxide (Milk Of Magnesia 30 Ml Oral.Susp) 30 ml PO DAILY PRN PRN Reason: Constipation Nicotine (Nicotine 21 Mg Patch.Td24) 21 mg TRANSDERMA DAILY PRN PRN Reason: smoking cessation Nicotine Polacrilex (Nicotine Polacrilex 2 Mg Gum) 4 mg BUCCAL Q2H PRN PRN Reason: nicotine cravings Olanzapine (Olanzapine 5 Mg Tablet) 5 mg PO TID PRN PRN Reason: agitation Propranolol HCl (Propranolol Hcl 10 Mg Tablet) 10 mg PO DAILY ALFRED; Protocol Last Admin: 01/28/24 08:46 Dose: 10 mg Trazodone HCl (Trazodone Hcl 50 Mg Tablet) 50 mg PO BEDTIME MRX1 PRN PRN Reason: Insomnia Allergies Allergies Allergy/AdvReac Type Severity Reaction Status Date / Time No Known Allergies Allergy Verified 01/20/24 17:37 Assessment & Plan Assessment & Plan (1) Bipolar I disorder with mood-congruent psychotic features: Status: Acute Code(s): F31.9 - Bipolar disorder, unspecified (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 continue thorazine for now until better understood. pt does not appear lithium toxic and renal fxn WNL. will check lithium tomorrow night. restart/continue home medications otherwise. 01/21: Met with assistant accounting manager present. Pt spontaneously laughing at times; appears to be responding to internal stimuli. Guarded. Responding with one words answers to questions. Pt reports feeling okay . denies SI/HI/VH/AH. keeping to self. 01/22: Pt laying in bed, staring at wall away from T/W and facilities clerk. Pt not responding to questions despite numerous attempts. Pt refused medications and vital signs this morning. Continue to encourage medication compliance. 01/23: Met with assistant accounting manager present. Pt laying in bed, staring at T/W and facilities clerk but not responding to questions despite numerous attempts. Pt medication compliant this morning. observed eating breakfast. keeping to self. 01/24: no change in presentation. check lithium level tomorrow delmi. not consistently taking neuroleptics but IS consistently taking lithium. 01/25: selectively mute. per facilities clerk collateral, he was with her when [facility] services met with her yesterday and she was fully verbal and collaborative. labs tonight. continue current mgmt. 01/26: mildly more communicative today. lithium level 0.36, BMP WNL. increase lithium dosing tonight. 01/27: more responsive and verbal today. continue current mgmt. 01/29/2024: lithium just increased 01/27/2024. No changes to current plan Reason for continued inpatient stay Substantial Risk for: inability to function Time Spent With Patient Time: Total time managing care of this patient today ____ minutes.
[2024-01-29 09:57] VITALS: BP 107/61; PULSE 89; RESP 18; TEMP 36.8; O2SAT 97
[2024-01-29] MEDS: Empagliflozin 10 MG TABLET PO (09:57)
[2024-01-29] MEDS: Propranolol HCL 10 MG TABLET PO (09:57)
[2024-01-29 19:35] VITALS: BP 124/81; PULSE 77; RESP 18; TEMP 36.8; O2SAT 100
[2024-01-29] MEDS: chlorproMAZINE HCl 25 MG TABLET 150 MG PO (20:20)
[2024-01-29] MEDS: Lithium Carbonate ER 450 MG TABLET.ER 900 MG PO (20:21)
[2024-01-30 07:30] VITALS: BP 113/65; PULSE 88; TEMP 36.4; O2SAT 96
[2024-01-30] MEDS: Empagliflozin 10 MG TABLET PO (08:53)
[2024-01-30 08:54] VITALS: BP 113/65; PULSE 88
[2024-01-30] MEDS: Propranolol HCL 10 MG TABLET PO (08:54)
--- NOTE | 2024-01-30 10:30 | P.PNPSI_ITS ---
Subjective Subjective Date of Service: 01/30/24 Reason For Visit: Adjustment disorder Interim History: met with patient. Still laughing to self at times. With account underwriter guarded and sated she was fine. Declined full interview with translation services. Was internally preoccupied. Medication Compliance: Yes Side effects from medications: No Attending Groups: No Review of Systems Acute medical concerns: No Review of Systems Review of Systems Unremarkable Mental Status Exam Mental Status Exam Narrative: Laying in bed but sits up quickly, behavior is calm, guarded; dressed in hospital attire; intense eye contact; responding more to questions, more soft utterances and head movements. thoughts apparently linear and logical. affect blunted. mood euthymic. no SI/HI/AVH expressed. Diagnostics Vital Signs (24Hr): Vital Signs - 24 hr 01/29/24 19:35 01/30/24 07:30 01/30/24 08:54 Temperature 98.3 F 97.5 F Pulse Rate 77 88 88 Respiratory Rate 18 Blood Pressure 124/81 113/65 113/65 Pulse Oximetry 100 96 Oxygen Delivery Method Room Air Room Air BMI result Body Mass Index 28.6 Labs 01/26/24 20:05 Labs: Laboratory Results - last 48 hr 01/28/24 22:36 POC Glucose 163 H Medications Medications Current Medications Acetaminophen (Acetaminophen 325 Mg Tablet) 650 mg PO Q6H PRN PRN Reason: Headache/Pain Mild Scale (1-3) Last Admin: 01/28/24 18:09 Dose: 650 mg Al Hydroxide/Mg Hydroxide (Magnesium Hydrox/Alum Hydrox 30 Ml Oral.Susp) 30 ml PO Q6H PRN PRN Reason: Heartburn/Nausea Chlorpromazine HCl (Chlorpromazine Hcl 25 Mg Tablet) 150 mg PO BEDTIME ALFRED Last Admin: 01/29/24 20:20 Dose: 150 mg Empagliflozin (Empagliflozin 10 Mg Tablet) 10 mg PO DAILY ALFRED Last Admin: 01/30/24 08:53 Dose: 10 mg Hydroxyzine HCl (Hydroxyzine Hcl 25 Mg Tablet) 25 mg PO Q6H PRN PRN Reason: Anxiety Last Admin: 01/27/24 18:13 Dose: 25 mg [place] Carbonate ([place] Carbonate Er 450 Mg Tablet.Er) 900 mg PO BEDTIME ALFRED Last Admin: 01/29/24 20:21 Dose: 900 mg Magnesium Hydroxide (Milk Of Magnesia 30 Ml Oral.Susp) 30 ml PO DAILY PRN PRN Reason: Constipation Nicotine (Nicotine 21 Mg Patch.Td24) 21 mg TRANSDERMA DAILY PRN PRN Reason: smoking cessation Nicotine Polacrilex (Nicotine Polacrilex 2 Mg Gum) 4 mg BUCCAL Q2H PRN PRN Reason: nicotine cravings Olanzapine (Olanzapine 5 Mg Tablet) 5 mg PO TID PRN PRN Reason: agitation Propranolol HCl (Propranolol Hcl 10 Mg Tablet) 10 mg PO DAILY ALFRED; Protocol Last Admin: 01/30/24 08:54 Dose: 10 mg Trazodone HCl (Trazodone Hcl 50 Mg Tablet) 50 mg PO BEDTIME MRX1 PRN PRN Reason: Insomnia Allergies Allergies Allergy/AdvReac Type Severity Reaction Status Date / Time No Known Allergies Allergy Verified 01/20/24 17:37 Assessment & Plan Assessment & Plan (1) Bipolar I disorder with mood-congruent psychotic features: Status: Acute Code(s): F31.9 - Bipolar disorder, unspecified (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 continue thorazine for now until better understood. pt does not appear lithium toxic and renal fxn WNL. will check lithium tomorrow night. restart/continue home medications otherwise. 01/21: Met with interactive media project manager present. Pt spontaneously laughing at times; appears to be responding to internal stimuli. Guarded. Responding with one words answers to questions. Pt reports feeling okay . denies SI/HI/VH/AH. keeping to self. 01/22: Pt laying in bed, staring at wall away from T/W and chief arson division. Pt not responding to questions despite numerous attempts. Pt refused medications and vital signs this morning. Continue to encourage medication compliance. 01/23: Met with interactive media project manager present. Pt laying in bed, staring at T/W and chief arson division but not responding to questions despite numerous attempts. Pt medication compliant this morning. observed eating breakfast. keeping to self. 01/24: no change in presentation. check lithium level tomorrow delmi. not consistently taking neuroleptics but IS consistently taking lithium. 01/25: selectively mute. per chief arson division collateral, he was with her when financial services met with her yesterday and she was fully verbal and collaborative. labs tonight. continue current mgmt. 01/26: mildly more communicative today. lithium level 0.36, BMP WNL. increase lithium dosing tonight. 01/27: more responsive and verbal today. continue current mgmt. 01/29/2024: lithium just increased 01/27/2024. No changes to current plan 01/29: schedule olanzapine bedtime 5mg Reason for continued inpatient stay Substantial Risk for: inability to function Time Spent With Patient Time: Total time managing care of this patient today ____ minutes.
[2024-01-30] MEDS: Acetaminophen 325 MG TABLET 650 MG PO (17:07)
[2024-01-30 20:00] VITALS: BP 121/82; PULSE 70; RESP 16; TEMP 36.5; O2SAT 99
[2024-01-30] MEDS: Lithium Carbonate ER 450 MG TABLET.ER 900 MG PO (20:52)
[2024-01-30] MEDS: OLANZapine 5 MG TABLET PO (20:53)
[2024-01-30] MEDS: chlorproMAZINE HCl 25 MG TABLET 150 MG PO (20:53)
[2024-01-31 07:25] VITALS: BP 110/68; PULSE 65; RESP 14; TEMP 36.7; O2SAT 98
[2024-01-31 08:16] VITALS: PULSE 65
[2024-01-31] MEDS: Propranolol HCL 10 MG TABLET PO (08:16)
[2024-01-31] MEDS: Empagliflozin 10 MG TABLET PO (08:17)
[2024-01-31 18:41] LABS: Appearance Urine Clear; Color Urine Yellow; Glucose Urine UA >=1000 mg/dL (Negative); Leukocyte Esterase Urine Small (1+) (Negative); Nitrite Urine Negative (Negative); Specific Gravity - Urine <= 1.005 (1.005-1.025); UMIC TRIGGER UACC YES; Urine Blood Negative (Negative); Urine Ketones Negative (Negative); Urine Protein Negative (Neg-Trace)
[2024-01-31 18:50] LABS: Bacteria Urine Trace (None Seen); Hyaline Casts Urine 0-2 /LPF (0-2); RBC Urine 0-2 /HPF (0-2); UACC Culture Trigger YES
[2024-01-31 20:00] VITALS: BP 132/78; PULSE 100; RESP 18; TEMP 36.8; O2SAT 99
[2024-01-31] MEDS: Lithium Carbonate ER 450 MG TABLET.ER 900 MG PO (20:20)
[2024-01-31] MEDS: OLANZapine ODT 10 MG TAB.RAPDIS TRANSLINGU (20:21)
[2024-01-31] MEDS: OLANZapine 5 MG TABLET PO (20:21)
--- NOTE | 2024-01-31 21:49 | HO.PSYCHPN ---
Subjective Subjective Date of Service: 01/31/24 Reason For Visit: Adjustment disorder Interim History: calm, cooperative. feeling tired throughout the day. agreeable to change from thorazine to zyprexa, perhaps a less sedating medication. mood so-so. c/o sore throat. per staff, laughing, smiling to self. not attending groups. +meds. denies Sx. c/o sore throat. Mental Status Exam Mental Status Exam Narrative: Lying in bed, behavior is calm, guarded; dressed in hospital attire; good eye contact; responding more to questions, more soft utterances and head movements. thoughts apparently linear and logical. affect blunted. mood so-so. no SI/HI/AVH expressed. Diagnostics Vital Signs (24Hr): Vital Signs - 24 hr 01/31/24 07:25 01/31/24 07:25 01/31/24 08:16 Temperature 98.0 F 98.0 F Pulse Rate 65 65 65 Respiratory Rate 14 14 Blood Pressure 110/68 110/68 Pulse Oximetry 98 98 Oxygen Delivery Method Room Air Room Air 01/31/24 20:00 Temperature 98.2 F Pulse Rate 100 Respiratory Rate 18 Blood Pressure 132/78 Pulse Oximetry 99 Oxygen Delivery Method Room Air BMI result Body Mass Index 28.6 Labs 01/26/24 20:05 Labs: Laboratory Results - last 48 hr 01/31/24 18:30 Urine Color Yellow Urine Appearance Clear Urine pH 6.0 Ur Specific [place] <= 1.005 Urine Protein Negative Urine Glucose (UA) >=1000 H Urine Ketones Negative Urine Blood Negative Urine Nitrite Negative Ur Leukocyte Esterase Small (1+) H Urine RBC 0-2 Urine WBC 6-10 H Ur Squamous Epith Cells 6-10 Urine Bacteria Trace Hyaline Casts 0-2 Medications Medications Current Medications Acetaminophen (Acetaminophen 325 Mg Tablet) 650 mg PO Q6H PRN PRN Reason: Headache/Pain Mild Scale (1-3) Last Admin: 01/30/24 17:07 Dose: 650 mg Al Hydroxide/Mg Hydroxide (Magnesium Hydrox/Alum Hydrox 30 Ml Oral.Susp) 30 ml PO Q6H PRN PRN Reason: Heartburn/Nausea Benzocaine (Throat Lozenge, Medicated Lozenge) 1 lozenge MUCOUS MEM Q2H PRN PRN Reason: Sore Throat Empagliflozin (Empagliflozin 10 Mg Tablet) 10 mg PO DAILY ALFRED Last Admin: 01/31/24 08:17 Dose: 10 mg Hydroxyzine HCl (Hydroxyzine Hcl 25 Mg Tablet) 25 mg PO Q6H PRN PRN Reason: Anxiety Last Admin: 01/27/24 18:13 Dose: 25 mg [place] Carbonate ([place] Carbonate Er 450 Mg Tablet.Er) 900 mg PO BEDTIME ALFRED Last Admin: 01/31/24 20:20 Dose: 900 mg Magnesium Hydroxide (Milk Of Magnesia 30 Ml Oral.Susp) 30 ml PO DAILY PRN PRN Reason: Constipation Nicotine (Nicotine 21 Mg Patch.Td24) 21 mg TRANSDERMA DAILY PRN PRN Reason: smoking cessation Nicotine Polacrilex (Nicotine Polacrilex 2 Mg Gum) 4 mg BUCCAL Q2H PRN PRN Reason: nicotine cravings Olanzapine (Olanzapine 5 Mg Tablet) 5 mg PO TID PRN PRN Reason: agitation Olanzapine (Olanzapine 5 Mg Tablet) 5 mg PO BEDTIME ALFRED Last Admin: 01/31/24 20:21 Dose: 5 mg Olanzapine (Olanzapine Odt 10 Mg Tab.Rapdis) 10 mg TRANSLINGU BEDTIME ALFRED Last Admin: 01/31/24 20:21 Dose: 10 mg Propranolol HCl (Propranolol Hcl 10 Mg Tablet) 10 mg PO DAILY ALFRED; Protocol Last Admin: 01/31/24 08:16 Dose: 10 mg Trazodone HCl (Trazodone Hcl 50 Mg Tablet) 50 mg PO BEDTIME MRX1 PRN PRN Reason: Insomnia Allergies Allergies Allergy/AdvReac Type Severity Reaction Status Date / Time No Known Allergies Allergy Verified 01/20/24 17:37 Assessment & Plan Assessment & Plan (1) Bipolar I disorder with mood-congruent psychotic features: Status: Acute Code(s): F31.9 - Bipolar disorder, unspecified (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 continue thorazine for now until better understood. pt does not appear lithium toxic and renal fxn WNL. will check lithium tomorrow night. restart/continue home medications otherwise. 01/21: Met with cnc lathe machine operator present. Pt spontaneously laughing at times; appears to be responding to internal stimuli. Guarded. Responding with one words answers to questions. Pt reports feeling okay . denies SI/HI/VH/AH. keeping to self. 01/22: Pt laying in bed, staring at wall away from T/W and area director of home health sales. Pt not responding to questions despite numerous attempts. Pt refused medications and vital signs this morning. Continue to encourage medication compliance. 01/23: Met with cnc lathe machine operator present. Pt laying in bed, staring at T/W and area director of home health sales but not responding to questions despite numerous attempts. Pt medication compliant this morning. observed eating breakfast. keeping to self. 01/24: no change in presentation. check lithium level tomorrow delmi. not consistently taking neuroleptics but IS consistently taking lithium. 01/25: selectively mute. per area director of home health sales collateral, he was with her when financial services met with her yesterday and she was fully verbal and collaborative. labs tonight. continue current mgmt. 01/26: mildly more communicative today. lithium level 0.36, BMP WNL. increase lithium dosing tonight. 01/27: more responsive and verbal today. continue current mgmt. 01/29/2024: lithium just increased 01/27/2024. No changes to current plan 01/29: schedule olanzapine bedtime 5mg 01/30: DC thorazine, increase zyprexa to 10 at HS. mild improvement in the past week. Reason for continued inpatient stay Substantial Risk for: inability to function and rapid decompensation Time Spent With Patient Time: Total time managing care of this patient today ____ minutes.
[2024-02-01 08:00] VITALS: BP 117/63; PULSE 90; RESP 16; TEMP 36.8; O2SAT 95
[2024-02-01 09:37] VITALS: BP 117/63; PULSE 76
[2024-02-01] MEDS: Propranolol HCL 10 MG TABLET PO (09:37)
[2024-02-01] MEDS: Empagliflozin 10 MG TABLET PO (09:37)
[2024-02-01] MEDS: hydrOXYzine HCL 25 MG TABLET PO (12:04)
--- NOTE | 2024-02-01 14:44 | P.PNPSI_ITS ---
Subjective Subjective Date of Service: 02/01/24 Reason For Visit: Adjustment disorder Interim History: more verbal today. informed of dose increase tonight in zyprexa. c/o anxiety to Jillian GONZALEZ. per staff, isolative. taking meds. UA pending. showered. inappropriate laughter. slept 8 hours. Mental Status Exam Mental Status Exam Narrative: sitting up in bed, behavior is calm, guarded; dressed in hospital attire; good eye contact; responding more to questions, louder and less hesitant responses. thoughts apparently linear and logical. affect full range. mood not assessed. no SI/HI/AVH expressed. Diagnostics Vital Signs (24Hr): Vital Signs - 24 hr 01/31/24 20:00 02/01/24 08:00 02/01/24 09:37 Temperature 98.2 F 98.3 F Pulse Rate 100 90 76 Respiratory Rate 18 16 Blood Pressure 132/78 117/63 117/63 Pulse Oximetry 99 95 Oxygen Delivery Method Room Air Room Air BMI result Body Mass Index 28.6 Labs 01/26/24 20:05 Labs: Laboratory Results - last 48 hr 01/31/24 18:30 Urine Color Yellow Urine Appearance Clear Urine pH 6.0 Ur Specific [place] <= 1.005 Urine Protein Negative Urine Glucose (UA) >=1000 H Urine Ketones Negative Urine Blood Negative Urine Nitrite Negative Ur Leukocyte Esterase Small (1+) H Urine RBC 0-2 Urine WBC 6-10 H Ur Squamous Epith Cells 6-10 Urine Bacteria Trace Hyaline Casts 0-2 Medications Medications Current Medications Acetaminophen (Acetaminophen 325 Mg Tablet) 650 mg PO Q6H PRN PRN Reason: Headache/Pain Mild Scale (1-3) Last Admin: 01/30/24 17:07 Dose: 650 mg Al Hydroxide/Mg Hydroxide (Magnesium Hydrox/Alum Hydrox 30 Ml Oral.Susp) 30 ml PO Q6H PRN PRN Reason: Heartburn/Nausea Benzocaine (Throat Lozenge, Medicated Lozenge) 1 lozenge MUCOUS MEM Q2H PRN PRN Reason: Sore Throat Empagliflozin (Empagliflozin 10 Mg Tablet) 10 mg PO DAILY ALFRED Last Admin: 02/01/24 09:37 Dose: 10 mg Hydroxyzine HCl (Hydroxyzine Hcl 25 Mg Tablet) 25 mg PO Q6H PRN PRN Reason: Anxiety Last Admin: 07/23/24 12:04 Dose: 25 mg [place] Carbonate ([place] Carbonate Er 450 Mg Tablet.Er) 900 mg PO BEDTIME ALFRED Last Admin: 01/31/24 20:20 Dose: 900 mg Magnesium Hydroxide (Milk Of Magnesia 30 Ml Oral.Susp) 30 ml PO DAILY PRN PRN Reason: Constipation Nicotine (Nicotine 21 Mg Patch.Td24) 21 mg TRANSDERMA DAILY PRN PRN Reason: smoking cessation Nicotine Polacrilex (Nicotine Polacrilex 2 Mg Gum) 4 mg BUCCAL Q2H PRN PRN Reason: nicotine cravings Olanzapine (Olanzapine 5 Mg Tablet) 5 mg PO TID PRN PRN Reason: agitation Olanzapine (Olanzapine Odt 10 Mg Tab.Rapdis) 15 mg TRANSLINGU BEDTIME ALFRED Propranolol HCl (Propranolol Hcl 10 Mg Tablet) 10 mg PO DAILY ALFRED; Protocol Last Admin: 02/01/24 09:37 Dose: 10 mg Trazodone HCl (Trazodone Hcl 50 Mg Tablet) 50 mg PO BEDTIME MRX1 PRN PRN Reason: Insomnia Allergies Allergies Allergy/AdvReac Type Severity Reaction Status Date / Time No Known Allergies Allergy Verified 01/20/24 17:37 Assessment & Plan Assessment & Plan (1) Bipolar I disorder with mood-congruent psychotic features: Status: Acute Code(s): F31.9 - Bipolar disorder, unspecified (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 continue thorazine for now until better understood. pt does not appear lithium toxic and renal fxn WNL. will check lithium tomorrow night. restart/continue home medications otherwise. 01/21: Met with annual giving director present. Pt spontaneously laughing at times; appears to be responding to internal stimuli. Guarded. Responding with one words answers to questions. Pt reports feeling okay . denies SI/HI/VH/AH. keeping to self. 01/22: Pt laying in bed, staring at wall away from T/W and acquisition editor. Pt not responding to questions despite numerous attempts. Pt refused medications and vital signs this morning. Continue to encourage medication compliance. 01/23: Met with annual giving director present. Pt laying in bed, staring at T/W and acquisition editor but not responding to questions despite numerous attempts. Pt medication compliant this morning. observed eating breakfast. keeping to self. 01/24: no change in presentation. check lithium level tomorrow delmi. not consistently taking neuroleptics but IS consistently taking lithium. 01/25: selectively mute. per acquisition editor collateral, he was with her when financial services met with her yesterday and she was fully verbal and collaborative. labs tonight. continue current mgmt. 01/26: mildly more communicative today. lithium level 0.36, BMP WNL. increase lithium dosing tonight. 01/27: more responsive and verbal today. continue current mgmt. 01/29/2024: lithium just increased 01/27/2024. No changes to current plan 01/29: schedule olanzapine bedtime 5mg 01/30: DC thorturner, increase zyprexa to 10 at HS. mild improvement in the past week. 01/31: UA not strongly indicative of UTI; will forego Tx at present. increase HS zydis to 15 mg. Reason for continued inpatient stay Substantial Risk for: inability to function Time Spent With Patient Time: Total time managing care of this patient today ____ minutes.
[2024-02-01 20:00] VITALS: BP 123/58; PULSE 98; RESP 18; TEMP 37.1; O2SAT 97
[2024-02-01] MEDS: Lithium Carbonate ER 450 MG TABLET.ER 900 MG PO (20:58)
[2024-02-01] MEDS: OLANZapine ODT 10 MG TAB.RAPDIS 15 MG TRANSLINGU (20:58)
[2024-02-01] MEDS: Acetaminophen 325 MG TABLET 650 MG PO (21:03)
[2024-02-02 08:00] VITALS: BP 112/70; PULSE 92; RESP 14; TEMP 36.9; O2SAT 98
[2024-02-02 09:43] VITALS: BP 110/75; PULSE 95
[2024-02-02] MEDS: Propranolol HCL 10 MG TABLET PO (09:43)
[2024-02-02] MEDS: Empagliflozin 10 MG TABLET PO (09:45)
--- NOTE | 2024-02-02 13:30 | HO.PSYCHPN ---
Subjective Subjective Date of Service: 02/02/24 Reason For Visit: Adjustment disorder Interim History: sleepy but rouses herself for interview. remains terse, very soft-spoken. no complaints or requests. per stasff, inappropriate laughter periodically. more verbal. had fresh air break, showered. attended one group. +RIS. slept 7 hours. Mental Status Exam Mental Status Exam Narrative: sitting up in bed, behavior is calm, guarded; dressed in hospital attire; good eye contact; responding more to questions, louder and less hesitant responses. thoughts apparently linear and logical. affect full range. mood euthymic. denies AVH. no SI/HI expressed. Diagnostics Vital Signs (24Hr): Vital Signs - 24 hr 02/01/24 20:00 02/02/24 08:00 02/02/24 09:43 Temperature 98.7 F 98.5 F Pulse Rate 98 92 95 Respiratory Rate 18 14 Blood Pressure 123/58 L 112/70 110/75 Pulse Oximetry 97 98 Oxygen Delivery Method Room Air Room Air BMI result Body Mass Index 28.6 Labs 01/26/24 20:05 Labs: Laboratory Results - last 48 hr 01/31/24 18:30 Urine Color Yellow Urine Appearance Clear Urine pH 6.0 Ur Specific [place] <= 1.005 Urine Protein Negative Urine Glucose (UA) >=1000 H Urine Ketones Negative Urine Blood Negative Urine Nitrite Negative Ur Leukocyte Esterase Small (1+) H Urine RBC 0-2 Urine WBC 6-10 H Ur Squamous Epith Cells 6-10 Urine Bacteria Trace Hyaline Casts 0-2 Medications Medications Current Medications Acetaminophen (Acetaminophen 325 Mg Tablet) 650 mg PO Q6H PRN PRN Reason: Headache/Pain Mild Scale (1-3) Last Admin: 02/01/24 21:03 Dose: 650 mg Al Hydroxide/Mg Hydroxide (Magnesium Hydrox/Alum Hydrox 30 Ml Oral.Susp) 30 ml PO Q6H PRN PRN Reason: Heartburn/Nausea Benzocaine (Throat Lozenge, Medicated Lozenge) 1 lozenge MUCOUS MEM Q2H PRN PRN Reason: Sore Throat Empagliflozin (Empagliflozin 10 Mg Tablet) 10 mg PO DAILY ALFRED Last Admin: 02/02/24 09:45 Dose: 10 mg Hydroxyzine HCl (Hydroxyzine Hcl 25 Mg Tablet) 25 mg PO Q6H PRN PRN Reason: Anxiety Last Admin: 02/01/24 12:04 Dose: 25 mg [place] Carbonate ([place] Carbonate Er 450 Mg Tablet.Er) 900 mg PO BEDTIME ALFRED Last Admin: 02/01/24 20:58 Dose: 900 mg Magnesium Hydroxide (Milk Of Magnesia 30 Ml Oral.Susp) 30 ml PO DAILY PRN PRN Reason: Constipation Nicotine (Nicotine 21 Mg Patch.Td24) 21 mg TRANSDERMA DAILY PRN PRN Reason: smoking cessation Nicotine Polacrilex (Nicotine Polacrilex 2 Mg Gum) 4 mg BUCCAL Q2H PRN PRN Reason: nicotine cravings Olanzapine (Olanzapine 5 Mg Tablet) 5 mg PO TID PRN PRN Reason: agitation Olanzapine (Olanzapine Odt 10 Mg Tab.Rapdis) 15 mg TRANSLINGU BEDTIME ALFRED Last Admin: 02/01/24 20:58 Dose: 15 mg Propranolol HCl (Propranolol Hcl 10 Mg Tablet) 10 mg PO DAILY ALFRED; Protocol Last Admin: 02/02/24 09:43 Dose: 10 mg Trazodone HCl (Trazodone Hcl 50 Mg Tablet) 50 mg PO BEDTIME MRX1 PRN PRN Reason: Insomnia Allergies Allergies Allergy/AdvReac Type Severity Reaction Status Date / Time No Known Allergies Allergy Verified 01/20/24 17:37 Assessment & Plan Assessment & Plan (1) Bipolar I disorder with mood-congruent psychotic features: Status: Acute Code(s): F31.9 - Bipolar disorder, unspecified (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 continue thorazine for now until better understood. pt does not appear lithium toxic and renal fxn WNL. will check lithium tomorrow night. restart/continue home medications otherwise. 01/21: Met with mechanical engineering lecturer present. Pt spontaneously laughing at times; appears to be responding to internal stimuli. Guarded. Responding with one words answers to questions. Pt reports feeling okay . denies SI/HI/VH/AH. keeping to self. 01/22: Pt laying in bed, staring at wall away from T/W and car repairer helper. Pt not responding to questions despite numerous attempts. Pt refused medications and vital signs this morning. Continue to encourage medication compliance. 01/23: Met with mechanical engineering lecturer present. Pt laying in bed, staring at T/W and car repairer helper but not responding to questions despite numerous attempts. Pt medication compliant this morning. observed eating breakfast. keeping to self. 01/24: no change in presentation. check lithium level tomorrow delmi. not consistently taking neuroleptics but IS consistently taking lithium. 01/25: selectively mute. per car repairer helper collateral, he was with her when financial services met with her yesterday and she was fully verbal and collaborative. labs tonight. continue current mgmt. 01/26: mildly more communicative today. lithium level 0.36, BMP WNL. increase lithium dosing tonight. 01/27: more responsive and verbal today. continue current mgmt. 01/29/2024: lithium just increased 01/27/2024. No changes to current plan 01/29: schedule olanzapine bedtime 5mg 01/30: DC thorazine, increase zyprexa to 10 at HS. mild improvement in the past week. 01/31: UA not strongly indicative of UTI; will forego Tx at present. increase HS zydis to 15 mg. 02/01: mild improvements sustained. sedated in morning. continue current mgmt for now. check lithium level. Reason for continued inpatient stay Substantial Risk for: inability to function and rapid decompensation Time Spent With Patient Time: Total time managing care of this patient today __25__ minutes.
[2024-02-02 20:00] VITALS: BP 115/70; PULSE 90; RESP 16; TEMP 36.9; O2SAT 95
[2024-02-02] MEDS: Lithium Carbonate ER 450 MG TABLET.ER 900 MG PO (20:57)
[2024-02-02] MEDS: traZODone HCL 50 MG TABLET PO ×2 (20:57→22:43)
[2024-02-02] MEDS: OLANZapine ODT 10 MG TAB.RAPDIS 15 MG TRANSLINGU (20:57)
[2024-02-02 21:47] LABS: Lithium 0.25 mmol/L (0.60-1.20)
[2024-02-02 21:52] LABS: Anion Gap 16 (12-20); Blood Urea Nitrogen 11 mg/dL (9-16); Calcium 9.4 mg/dL (8.4-10.2); Carbon Dioxide 21 mmol/L (22-29); Chloride 106 mmol/L (96-108); Creatinine Clr Calc Pharmacy 107.4; Estimated Glomerular Filt Rate > 60; Glucose Random 245 mg/dL (60-115); Sodium 139 mmol/L (135-145)
[2024-02-03 07:00] VITALS: BMI 29.3
[2024-02-03 08:00] VITALS: BP 117/64; PULSE 82; RESP 14; TEMP 36.8; O2SAT 96
[2024-02-03] MEDS: Empagliflozin 10 MG TABLET PO (08:42)
[2024-02-03] MEDS: Propranolol HCL 10 MG TABLET PO (08:42)
--- NOTE | 2024-02-03 16:24 | P.PNPSI_ITS ---
Subjective Subjective Date of Service: 02/03/24 Reason For Visit: Adjustment disorder Interim History: calm, cooperative. out of bed, yet more engaging than prior. no complaints or requests. encouraged to be out and about, attend groups. per staff, attending groups, taking meds. slept until 1300. socializing with peers in afternoon. Mental Status Exam Mental Status Exam Narrative: out of bed, behavior is calm, guarded; dressed in hospital attire; good eye contact; responding more to questions, louder and less hesitant responses. thoughts apparently linear and logical. affect full range. mood euthymic. denies AVH. no SI/HI expressed. Diagnostics Vital Signs (24Hr): Vital Signs - 24 hr 02/02/24 20:00 02/03/24 08:00 Temperature 98.5 F 98.2 F Pulse Rate 90 82 Respiratory Rate 16 14 Blood Pressure 115/70 117/64 Pulse Oximetry 95 96 Oxygen Delivery Method Room Air Room Air BMI result Body Mass Index 29.3 Labs 02/02/24 21:13 Labs: Laboratory Results - last 48 hr 02/02/24 21:13 Sodium 139 Potassium 4.0 Chloride 106 Carbon Dioxide 21 L Anion Gap 16 BUN 11 Creatinine 0.79 Estim Creat Clear Calc 107.4 Estimated GFR > 60 Random Glucose 245 H Calcium 9.4 [place] 0.25 L Medications Medications Current Medications Acetaminophen (Acetaminophen 325 Mg Tablet) 650 mg PO Q6H PRN PRN Reason: Headache/Pain Mild Scale (1-3) Last Admin: 02/01/24 21:03 Dose: 650 mg Al Hydroxide/Mg Hydroxide (Magnesium Hydrox/Alum Hydrox 30 Ml Oral.Susp) 30 ml PO Q6H PRN PRN Reason: Heartburn/Nausea Benzocaine (Throat Lozenge, Medicated Lozenge) 1 lozenge MUCOUS MEM Q2H PRN PRN Reason: Sore Throat Empagliflozin (Empagliflozin 10 Mg Tablet) 10 mg PO DAILY ALFRED Last Admin: 02/03/24 08:42 Dose: 10 mg Hydroxyzine HCl (Hydroxyzine Hcl 25 Mg Tablet) 25 mg PO Q6H PRN PRN Reason: Anxiety Last Admin: 02/01/24 12:04 Dose: 25 mg [place] Carbonate ([place] Carbonate Er 450 Mg Tablet.Er) 900 mg PO BEDTIME ALFRED Last Admin: 02/02/24 20:57 Dose: 900 mg Magnesium Hydroxide (Milk Of Magnesia 30 Ml Oral.Susp) 30 ml PO DAILY PRN PRN Reason: Constipation Nicotine (Nicotine 21 Mg Patch.Td24) 21 mg TRANSDERMA DAILY PRN PRN Reason: smoking cessation Nicotine Polacrilex (Nicotine Polacrilex 2 Mg Gum) 4 mg BUCCAL Q2H PRN PRN Reason: nicotine cravings Olanzapine (Olanzapine 5 Mg Tablet) 5 mg PO TID PRN PRN Reason: agitation Olanzapine (Olanzapine Odt 10 Mg Tab.Rapdis) 15 mg TRANSLINGU BEDTIME ALFRED Last Admin: 02/02/24 20:57 Dose: 15 mg Propranolol HCl (Propranolol Hcl 10 Mg Tablet) 10 mg PO DAILY ALFRED; Protocol Last Admin: 02/03/24 08:42 Dose: 10 mg Trazodone HCl (Trazodone Hcl 50 Mg Tablet) 50 mg PO BEDTIME MRX1 PRN PRN Reason: Insomnia Last Admin: 02/02/24 22:43 Dose: 50 mg Allergies Allergies Allergy/AdvReac Type Severity Reaction Status Date / Time No Known Allergies Allergy Verified 01/20/24 17:37 Assessment & Plan Assessment & Plan (1) Bipolar I disorder with mood-congruent psychotic features: Status: Acute Code(s): F31.9 - Bipolar disorder, unspecified (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 continue thorazine for now until better understood. pt does not appear lithium toxic and renal fxn WNL. will check lithium tomorrow night. restart/continue home medications otherwise. 01/21: Met with railroad brake operator present. Pt spontaneously laughing at times; appears to be responding to internal stimuli. Guarded. Responding with one words answers to questions. Pt reports feeling okay . denies SI/HI/VH/AH. keeping to self. 01/22: Pt laying in bed, staring at wall away from T/W and assistant curator. Pt not responding to questions despite numerous attempts. Pt refused medications and vital signs this morning. Continue to encourage medication compliance. 01/23: Met with railroad brake operator present. Pt laying in bed, staring at T/W and assistant curator but not responding to questions despite numerous attempts. Pt medication compliant this morning. observed eating breakfast. keeping to self. 01/24: no change in presentation. check lithium level tomorrow delmi. not consistently taking neuroleptics but IS consistently taking lithium. 01/25: selectively mute. per assistant curator collateral, he was with her when financial services met with her yesterday and she was fully verbal and collaborative. labs tonight. continue current mgmt. 01/26: mildly more communicative today. lithium level 0.36, BMP WNL. increase lithium dosing tonight. 01/27: more responsive and verbal today. continue current mgmt. 01/29/2024: lithium just increased 01/27/2024. No changes to current plan 01/29: schedule olanzapine bedtime 5mg 01/30: DC thorazine, increase zyprexa to 10 at HS. mild improvement in the past week. 01/31: UA not strongly indicative of UTI; will forego Tx at present. increase HS zydis to 15 mg. 02/01: mild improvements sustained. sedated in morning. continue current mgmt for now. check lithium level. 02/02: lithium level trending down despite dose increase. recheck lithium. otherwise continue current mgmt. continues improved. Reason for continued inpatient stay Substantial Risk for: inability to function and rapid decompensation Time Spent With Patient Time: Total time managing care of this patient today __25__ minutes.
[2024-02-03] MEDS: OLANZapine 5 MG TABLET PO (16:31)
[2024-02-03] MEDS: Acetaminophen 325 MG TABLET 650 MG PO (19:05)
[2024-02-03 19:20] VITALS: BP 138/86; PULSE 102; RESP 16; TEMP 36.9; O2SAT 98
[2024-02-03] MEDS: traZODone HCL 50 MG TABLET PO ×2 (20:12→22:20)
[2024-02-03] MEDS: Lithium Carbonate ER 450 MG TABLET.ER 900 MG PO (20:12)
[2024-02-03] MEDS: OLANZapine ODT 10 MG TAB.RAPDIS 15 MG TRANSLINGU (20:13)
[2024-02-03] MEDS: hydrOXYzine HCL 25 MG TABLET PO (22:20)
[2024-02-04 07:25] VITALS: BP 113/61; PULSE 75; RESP 18; TEMP 37; O2SAT 97
[2024-02-04 10:00] VITALS: BP 113/61; PULSE 75
[2024-02-04] MEDS: Empagliflozin 10 MG TABLET PO (10:00)
[2024-02-04] MEDS: Propranolol HCL 10 MG TABLET PO (10:00)
[2024-02-04] MEDS: Acetaminophen 325 MG TABLET 650 MG PO (10:08)
[2024-02-04] MEDS: Magnesium Hydrox/Alum Hydrox 30 ML ORAL.SUSP PO ×2 (10:09→19:03)
--- NOTE | 2024-02-04 14:38 | P.PNPSI_ITS ---
Subjective Subjective Date of Service: 02/04/24 Reason For Visit: Adjustment disorder Interim History: calm, cooperative. no complaints or requests. remains more verbal and active. observed in group. per staff, +RIS. no SI/HI. inappropriate laughter. Mental Status Exam Mental Status Exam Narrative: out of bed, behavior is calm, guarded; dressed in hospital attire; good eye contact; responding more to questions, louder and less hesitant responses. thoughts apparently linear and logical. affect full range. mood euthymic. SI/HI/AVH expressed. Diagnostics Vital Signs (24Hr): Vital Signs - 24 hr 02/03/24 19:20 02/04/24 07:25 02/04/24 10:00 Temperature 98.4 F 98.6 F Pulse Rate 102 H 75 75 Respiratory Rate 16 18 Blood Pressure 138/86 113/61 113/61 Pulse Oximetry 98 97 Oxygen Delivery Method Room Air Room Air BMI result Body Mass Index 29.3 Labs 02/02/24 21:13 Labs: Laboratory Results - last 48 hr 02/02/24 21:13 Sodium 139 Potassium 4.0 Chloride 106 Carbon Dioxide 21 L Anion Gap 16 BUN 11 Creatinine 0.79 Estim Creat Clear Calc 107.4 Estimated GFR > 60 Random Glucose 245 H Calcium 9.4 [place] 0.25 L Medications Medications Current Medications Acetaminophen (Acetaminophen 325 Mg Tablet) 650 mg PO Q6H PRN PRN Reason: Headache/Pain Mild Scale (1-3) Last Admin: 02/04/24 10:08 Dose: 650 mg Al Hydroxide/Mg Hydroxide (Magnesium Hydrox/Alum Hydrox 30 Ml Oral.Susp) 30 ml PO Q6H PRN PRN Reason: Heartburn/Nausea Last Admin: 02/04/24 10:09 Dose: 30 ml Benzocaine (Throat Lozenge, Medicated Lozenge) 1 lozenge MUCOUS MEM Q2H PRN PRN Reason: Sore Throat Empagliflozin (Empagliflozin 10 Mg Tablet) 10 mg PO DAILY ALFRED Last Admin: 02/04/24 10:00 Dose: 10 mg Hydroxyzine HCl (Hydroxyzine Hcl 25 Mg Tablet) 25 mg PO Q6H PRN PRN Reason: Anxiety Last Admin: 02/03/24 22:20 Dose: 25 mg [place] Citrate ([place] Citrate Oral Anayeli 300 Mg (8 Meq)/5 Ml) 450 mg PO BID ALFRED Magnesium Hydroxide (Milk Of Magnesia 30 Ml Oral.Susp) 30 ml PO DAILY PRN PRN Reason: Constipation Nicotine (Nicotine 21 Mg Patch.Td24) 21 mg TRANSDERMA DAILY PRN PRN Reason: smoking cessation Nicotine Polacrilex (Nicotine Polacrilex 2 Mg Gum) 4 mg BUCCAL Q2H PRN PRN Reason: nicotine cravings Olanzapine (Olanzapine 5 Mg Tablet) 5 mg PO TID PRN PRN Reason: agitation Last Admin: 02/03/24 16:31 Dose: 5 mg Olanzapine (Olanzapine Odt 10 Mg Tab.Rapdis) 15 mg TRANSLINGU BEDTIME ALFRED Last Admin: 02/03/24 20:13 Dose: 15 mg Propranolol HCl (Propranolol Hcl 10 Mg Tablet) 10 mg PO DAILY ALFRED; Protocol Last Admin: 02/04/24 10:00 Dose: 10 mg Trazodone HCl (Trazodone Hcl 50 Mg Tablet) 50 mg PO BEDTIME MRX1 PRN PRN Reason: Insomnia Last Admin: 02/03/24 22:20 Dose: 50 mg Allergies Allergies Allergy/AdvReac Type Severity Reaction Status Date / Time No Known Allergies Allergy Verified 01/20/24 17:37 Assessment & Plan Assessment & Plan (1) Bipolar I disorder with mood-congruent psychotic features: Status: Acute Code(s): F31.9 - Bipolar disorder, unspecified (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 continue thorazine for now until better understood. pt does not appear lithium toxic and renal fxn WNL. will check lithium tomorrow night. restart/continue home medications otherwise. 01/21: Met with engineer design and construction present. Pt spontaneously laughing at times; appears to be responding to internal stimuli. Guarded. Responding with one words answers to questions. Pt reports feeling okay . denies SI/HI/VH/AH. keeping to self. 01/22: Pt laying in bed, staring at wall away from T/W and central communications specialist. Pt not responding to questions despite numerous attempts. Pt refused medications and vital signs this morning. Continue to encourage medication compliance. 01/23: Met with engineer design and construction present. Pt laying in bed, staring at T/W and central communications specialist but not responding to questions despite numerous attempts. Pt medication compliant this morning. observed eating breakfast. keeping to self. 01/24: no change in presentation. check lithium level tomorrow delmi. not consistently taking neuroleptics but IS consistently taking lithium. 01/25: selectively mute. per central communications specialist collateral, he was with her when financial services met with her yesterday and she was fully verbal and collaborative. labs tonight. continue current mgmt. 01/26: mildly more communicative today. lithium level 0.36, BMP WNL. increase lithium dosing tonight. 01/27: more responsive and verbal today. continue current mgmt. 01/29/2024: lithium just increased 01/27/2024. No changes to current plan 01/29: schedule olanzapine bedtime 5mg 01/30: DC thorazine, increase zyprexa to 10 at HS. mild improvement in the past week. 01/31: UA not strongly indicative of UTI; will forego Tx at present. increase HS zydis to 15 mg. 02/01: mild improvements sustained. sedated in morning. continue current mgmt for now. check lithium level. 02/02: lithium level trending down despite dose increase. recheck lithium. otherwise continue current mgmt. continues improved. 02/03: mild improvement. switch lithium to liquid formulation due to lack of increase in serum level with increase in PO dosing. otherwise continue current mgmt. Reason for continued inpatient stay Substantial Risk for: inability to function and rapid decompensation Time Spent With Patient Time: Total time managing care of this patient today __25__ minutes.
[2024-02-04 17:04] LABS: Appearance Urine Clear; Color Urine Yellow; Glucose Urine UA >=1000 mg/dL (Negative); Leukocyte Esterase Urine Negative (Negative); Nitrite Urine Negative (Negative); Specific Gravity - Urine >= 1.030 (1.005-1.025); UMIC TRIGGER UACC YES; Urine Blood Negative (Negative); Urine Ketones Negative (Negative); Urine Protein Negative (Neg-Trace)
[2024-02-04 17:32] LABS: Bacteria Urine None Seen (None Seen); Hyaline Casts Urine 0-2 /LPF (0-2); RBC Urine 0-2 /HPF (0-2); Squamous Epithelial Cell Urine 0-2 /HPF (0-2); WBC Urine 0-5 /HPF (0-5)
[2024-02-04] MEDS: OLANZapine ODT 10 MG TAB.RAPDIS 15 MG TRANSLINGU (20:15)
[2024-02-05 08:00] VITALS: BP 109/63; PULSE 74; RESP 14; TEMP 36.6; O2SAT 98
[2024-02-05 08:42] VITALS: BP 109/63; PULSE 73
[2024-02-05] MEDS: Propranolol HCL 10 MG TABLET PO (08:42)
[2024-02-05] MEDS: Empagliflozin 10 MG TABLET PO (08:42)
[2024-02-05] MEDS: OLANZapine 5 MG TABLET PO (08:43)
--- NOTE | 2024-02-05 10:45 | P.PNPSI_ITS ---
Subjective Subjective Date of Service: 02/05/24 Reason For Visit: Adjustment disorder Subjective Notes: Conditional Voluntary Interim History: Patient was seen and discussed in rounds today. Records and plans were reviewed. Continues to endorse depression and anxiety. Appears to be preoccupied. Medication compliant. Possible response to internal stimuli, affect at times has been inappropriate. No active SI. No changes were made today Review of Systems Review of Systems Yes all other systems are reviewed and are negative Mental Status Exam Mental Status Exam Narrative: In today's visit she is alert, pleasant and interactive. Normal speech. Moderate eye contact. No acute signs of psychosis but possible response to internal stimuli reported. No SI. Cognitively intact. Diagnostics Vital Signs (24Hr): Vital Signs - 24 hr 02/05/24 08:00 02/05/24 08:42 Temperature 97.8 F Pulse Rate 74 73 Respiratory Rate 14 Blood Pressure 109/63 109/63 Pulse Oximetry 98 Oxygen Delivery Method Room Air BMI result Body Mass Index 29.3 Labs 02/02/24 21:13 Labs: Laboratory Results - last 48 hr 02/04/24 16:20 Urine Color Yellow Urine Appearance Clear Urine pH 7.0 Ur Specific [place] >= 1.030 H Urine Protein Negative Urine Glucose (UA) >=1000 H Urine Ketones Negative Urine Blood Negative Urine Nitrite Negative Ur Leukocyte Esterase Negative Urine RBC 0-2 Urine WBC 0-5 Ur Squamous Epith Cells 0-2 Urine Bacteria None Seen Hyaline Casts 0-2 Medications Medications Current Medications Acetaminophen (Acetaminophen 325 Mg Tablet) 650 mg PO Q6H PRN PRN Reason: Headache/Pain Mild Scale (1-3) Last Admin: 02/04/24 10:08 Dose: 650 mg Al Hydroxide/Mg Hydroxide (Magnesium Hydrox/Alum Hydrox 30 Ml Oral.Susp) 30 ml PO Q6H PRN PRN Reason: Heartburn/Nausea Last Admin: 02/04/24 19:03 Dose: 30 ml Benzocaine (Throat Lozenge, Medicated Lozenge) 1 lozenge MUCOUS MEM Q2H PRN PRN Reason: Sore Throat Empagliflozin (Empagliflozin 10 Mg Tablet) 10 mg PO DAILY ALFRED Last Admin: 02/05/24 08:42 Dose: 10 mg Hydroxyzine HCl (Hydroxyzine Hcl 25 Mg Tablet) 25 mg PO Q6H PRN PRN Reason: Anxiety Last Admin: 02/03/24 22:20 Dose: 25 mg [place] Citrate ([place] Citrate Oral Anayeli 300 Mg (8 Meq)/5 Ml) 450 mg PO BID ALFRED Last Admin: 02/05/24 08:43 Dose: 450 mg Magnesium Hydroxide (Milk Of Magnesia 30 Ml Oral.Susp) 30 ml PO DAILY PRN PRN Reason: Constipation Nicotine (Nicotine 21 Mg Patch.Td24) 21 mg TRANSDERMA DAILY PRN PRN Reason: smoking cessation Nicotine Polacrilex (Nicotine Polacrilex 2 Mg Gum) 4 mg BUCCAL Q2H PRN PRN Reason: nicotine cravings Olanzapine (Olanzapine 5 Mg Tablet) 5 mg PO TID PRN PRN Reason: agitation Last Admin: 02/05/24 08:43 Dose: 5 mg Olanzapine (Olanzapine Odt 10 Mg Tab.Rapdis) 15 mg TRANSLINGU BEDTIME ALFRED Last Admin: 02/04/24 20:15 Dose: 15 mg Propranolol HCl (Propranolol Hcl 10 Mg Tablet) 10 mg PO DAILY ALFRED; Protocol Last Admin: 02/05/24 08:42 Dose: 10 mg Trazodone HCl (Trazodone Hcl 50 Mg Tablet) 50 mg PO BEDTIME MRX1 PRN PRN Reason: Insomnia Last Admin: 02/03/24 22:20 Dose: 50 mg Allergies Allergies Allergy/AdvReac Type Severity Reaction Status Date / Time No Known Allergies Allergy Verified 01/20/24 17:37 Assessment & Plan Assessment & Plan (1) Bipolar I disorder with mood-congruent psychotic features: Status: Acute Code(s): F31.9 - Bipolar disorder, unspecified (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 continue thorazine for now until better understood. pt does not appear lithium toxic and renal fxn WNL. will check lithium tomorrow night. restart/continue home medications otherwise. 01/21: Met with clinical audiologist present. Pt spontaneously laughing at times; appears to be responding to internal stimuli. Guarded. Responding with one words answers to questions. Pt reports feeling okay . denies SI/HI/VH/AH. keeping to self. 01/22: Pt laying in bed, staring at wall away from T/W and regulator operator. Pt not responding to questions despite numerous attempts. Pt refused medications and vital signs this morning. Continue to encourage medication compliance. 01/23: Met with clinical audiologist present. Pt laying in bed, staring at T/W and regulator operator but not responding to questions despite numerous attempts. Pt medication compliant this morning. observed eating breakfast. keeping to self. 01/24: no change in presentation. check lithium level tomorrow delmi. not consistently taking neuroleptics but IS consistently taking lithium. 01/25: selectively mute. per regulator operator collateral, he was with her when [employer] services met with her yesterday and she was fully verbal and collaborative. labs tonight. continue current mgmt. 01/26: mildly more communicative today. lithium level 0.36, BMP WNL. increase lithium dosing tonight. 01/27: more responsive and verbal today. continue current mgmt. 01/29/2024: lithium just increased 01/27/2024. No changes to current plan 01/29: schedule olanzapine bedtime 5mg 01/30: DC thorazine, increase zyprexa to 10 at HS. mild improvement in the past week. 01/31: UA not strongly indicative of UTI; will forego Tx at present. increase HS zydis to 15 mg. 02/01: mild improvements sustained. sedated in morning. continue current mgmt for now. check lithium level. 02/02: lithium level trending down despite dose increase. recheck lithium. otherwise continue current mgmt. continues improved. 02/03: mild improvement. switch lithium to liquid formulation due to lack of increase in serum level with increase in PO dosing. otherwise continue current mgmt. 02/04: Continue current regimen and plans Reason for continued inpatient stay Substantial Risk for: med/psych decompensation Time Spent With Patient Time: Total time managing care of this patient today ____ minutes.
[2024-02-05] MEDS: Acetaminophen 325 MG TABLET 650 MG PO (11:22)
[2024-02-05] MEDS: Magnesium Hydrox/Alum Hydrox 30 ML ORAL.SUSP PO (17:01)
[2024-02-05 20:00] VITALS: BP 124/89; PULSE 106; RESP 18; TEMP 36.9; O2SAT 98
[2024-02-05] MEDS: OLANZapine ODT 10 MG TAB.RAPDIS 15 MG TRANSLINGU (20:57)
[2024-02-06] MEDS: Acetaminophen 325 MG TABLET 650 MG PO ×2 (03:23→23:10)
[2024-02-06] MEDS: hydrOXYzine HCL 25 MG TABLET PO ×2 (03:24→09:45)
[2024-02-06] MEDS: OLANZapine 5 MG TABLET PO (05:16)
[2024-02-06] MEDS: Magnesium Hydrox/Alum Hydrox 30 ML ORAL.SUSP PO (06:47)
[2024-02-06 07:15] VITALS: BP 136/93; PULSE 91; RESP 14; TEMP 36.8; O2SAT 99
[2024-02-06 08:27] VITALS: BP 112/86; PULSE 108
[2024-02-06 08:42] VITALS: BP 112/86; PULSE 108
[2024-02-06] MEDS: Propranolol HCL 10 MG TABLET PO (08:42)
[2024-02-06] MEDS: Empagliflozin 10 MG TABLET PO (08:43)
--- NOTE | 2024-02-06 10:28 | P.PNPSI_ITS ---
Subjective Subjective Date of Service: 02/06/24 Reason For Visit: Adjustment disorder Subjective Notes: Conditional Voluntary Interim History: Patient was seen and discussed in rounds today. Records and plans were reviewed. She was seen with the help of an distribution sales manager. She has been complaining of left side abdominal discomfort and pain which she states she has had for ?13 years?. She is having bowel movements. She does have analgesics available and hot water bottle was also supplied. She is having some nausea and Zofran was ordered. She continues to have some exit seeking behavior. Poor sleep last night. No SI y Review of Systems Review of Systems Left abdominal discomfort/pain Yes all other systems are reviewed and are negative Mental Status Exam Mental Status Exam Narrative: In today's visit she is alert, pleasant and interactive within her means. Normal speech. Moderate eye contact. No acute signs of psychosis but possible response to internal stimuli reported. No SI. Cognitively intact. Diagnostics Vital Signs (24Hr): Vital Signs - 24 hr 02/05/24 20:00 02/06/24 07:15 02/06/24 08:27 Temperature 98.4 F 98.2 F Pulse Rate 106 H 91 108 H Respiratory Rate 18 14 Blood Pressure 124/89 136/93 H 112/86 Pulse Oximetry 98 99 Oxygen Delivery Method Room Air Room Air 02/06/24 08:42 Temperature Pulse Rate 108 H Respiratory Rate Blood Pressure 112/86 Pulse Oximetry Oxygen Delivery Method BMI result Body Mass Index 29.3 Labs 02/02/24 21:13 Labs: Laboratory Results - last 48 hr 02/04/24 16:20 Urine Color Yellow Urine Appearance Clear Urine pH 7.0 Ur Specific [place] >= 1.030 H Urine Protein Negative Urine Glucose (UA) >=1000 H Urine Ketones Negative Urine Blood Negative Urine Nitrite Negative Ur Leukocyte Esterase Negative Urine RBC 0-2 Urine WBC 0-5 Ur Squamous Epith Cells 0-2 Urine Bacteria None Seen Hyaline Casts 0-2 Medications Medications Current Medications Acetaminophen (Acetaminophen 325 Mg Tablet) 650 mg PO Q6H PRN PRN Reason: Headache/Pain Mild Scale (1-3) Last Admin: 02/06/24 03:23 Dose: 650 mg Al Hydroxide/Mg Hydroxide (Magnesium Hydrox/Alum Hydrox 30 Ml Oral.Susp) 30 ml PO Q6H PRN PRN Reason: Heartburn/Nausea Last Admin: 02/06/24 06:47 Dose: 30 ml Benzocaine (Throat Lozenge, Medicated Lozenge) 1 lozenge MUCOUS MEM Q2H PRN PRN Reason: Sore Throat Empagliflozin (Empagliflozin 10 Mg Tablet) 10 mg PO DAILY [facility] Last Admin: 02/06/24 08:43 Dose: 10 mg Hydroxyzine HCl (Hydroxyzine Hcl 25 Mg Tablet) 25 mg PO Q6H PRN PRN Reason: Anxiety Last Admin: 02/06/24 09:45 Dose: 25 mg [place] Citrate ([place] Citrate Oral Anayeli 300 Mg (8 Meq)/5 Ml) 450 mg PO BID [facility] Last Admin: 02/06/24 08:44 Dose: 450 mg Magnesium Hydroxide (Milk Of Magnesia 30 Ml Oral.Susp) 30 ml PO DAILY PRN PRN Reason: Constipation Nicotine (Nicotine 21 Mg Patch.Td24) 21 mg TRANSDERMA DAILY PRN PRN Reason: smoking cessation Nicotine Polacrilex (Nicotine Polacrilex 2 Mg Gum) 4 mg BUCCAL Q2H PRN PRN Reason: nicotine cravings Olanzapine (Olanzapine 5 Mg Tablet) 5 mg PO TID PRN PRN Reason: agitation Last Admin: 02/06/24 05:16 Dose: 5 mg Olanzapine (Olanzapine Odt 10 Mg Tab.Rapdis) 15 mg TRANSLINGU BEDTIME [facility] Last Admin: 02/05/24 20:57 Dose: 15 mg Propranolol HCl (Propranolol Hcl 10 Mg Tablet) 10 mg PO DAILY [facility]; Protocol Last Admin: 02/06/24 08:42 Dose: 10 mg Trazodone HCl (Trazodone Hcl 50 Mg Tablet) 50 mg PO BEDTIME MRX1 PRN PRN Reason: Insomnia Last Admin: 02/03/24 22:20 Dose: 50 mg Allergies Allergies Allergy/AdvReac Type Severity Reaction Status Date / Time No Known Allergies Allergy Verified 01/20/24 17:37 Assessment & Plan Assessment & Plan (1) Bipolar I disorder with mood-congruent psychotic features: Status: Acute Code(s): F31.9 - Bipolar disorder, unspecified (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 continue thorazine for now until better understood. pt does not appear lithium toxic and renal fxn WNL. will check lithium tomorrow night. restart/continue home medications otherwise. 01/21: Met with auto technician mechanic present. Pt spontaneously laughing at times; appears to be responding to internal stimuli. Guarded. Responding with one words answers to questions. Pt reports feeling okay . denies SI/HI/VH/AH. keeping to self. 01/22: Pt laying in bed, staring at wall away from T/W and distribution sales manager. Pt not responding to questions despite numerous attempts. Pt refused medications and vital signs this morning. Continue to encourage medication compliance. 01/23: Met with auto technician mechanic present. Pt laying in bed, staring at T/W and distribution sales manager but not responding to questions despite numerous attempts. Pt medication compliant this morning. observed eating breakfast. keeping to self. 01/24: no change in presentation. check lithium level tomorrow delmi. not consistently taking neuroleptics but IS consistently taking lithium. 01/25: selectively mute. per distribution sales manager collateral, he was with her when financial services met with her yesterday and she was fully verbal and collaborative. labs tonight. continue current mgmt. 01/26: mildly more communicative today. lithium level 0.36, BMP WNL. increase lithium dosing tonight. 01/27: more responsive and verbal today. continue current mgmt. 01/29/2024: lithium just increased 01/27/2024. No changes to current plan 01/29: schedule olanzapine bedtime 5mg 01/30: DC thorazine, increase zyprexa to 10 at HS. mild improvement in the past week. 01/31: UA not strongly indicative of UTI; will forego Tx at present. increase HS zydis to 15 mg. 02/01: mild improvements sustained. sedated in morning. continue current mgmt for now. check lithium level. 02/02: lithium level trending down despite dose increase. recheck lithium. otherwise continue current mgmt. continues improved. 02/03: mild improvement. switch lithium to liquid formulation due to lack of increase in serum level with increase in PO dosing. otherwise continue current mgmt. 02/04: Continue current regimen and plans 02/05: Continue current regimen and plans. Zofran ordered Reason for continued inpatient stay Substantial Risk for: med/psych decompensation Time Spent With Patient Time: Total time managing care of this patient today ____ minutes.
[2024-02-06] MEDS: Ondansetron ODT 4 MG TAB.RAPDIS TRANSLINGU (10:45)
[2024-02-06] MEDS: OLANZapine ODT 10 MG TAB.RAPDIS 15 MG TRANSLINGU (22:50)
[2024-02-07 07:45] VITALS: BP 121/78; PULSE 98; RESP 16; TEMP 36.4; O2SAT 96
[2024-02-07] MEDS: Propranolol HCL 10 MG TABLET PO (08:22)
[2024-02-07] MEDS: Empagliflozin 10 MG TABLET PO (08:22)
[2024-02-07] MEDS: Acetaminophen 325 MG TABLET 650 MG PO ×2 (10:51→17:50)
[2024-02-07] MEDS: hydrOXYzine HCL 25 MG TABLET PO ×2 (11:34→21:39)
[2024-02-07] MEDS: OLANZapine 5 MG TABLET PO (11:34)
--- NOTE | 2024-02-07 14:44 | HO.PSYCHPN ---
Subjective Subjective Date of Service: 02/07/24 Reason For Visit: Adjustment disorder Subjective Notes: Conditional Voluntary Interim History: Reviewed with Dr. Palmer. Active on unit, observed responding to internal stimuli. diplomatic interpreter present. laughing inappropriately during conversation. Pt reports feeling sad and nervous ; pt did not elaborate. Pt reports suicidal ideation with no plan. she denies HI/VH/AH. [place] level to be drawn tomorrow morning. Medication Compliance: Yes Side effects from medications: No Attending Groups: No Review of Systems Constitutional: Reports as per HPI Eyes: Reports as per HPI Reports as per HPI Cardiovascular: Reports as per HPI Respiratory: Reports as per HPI Gastrointestinal: Reports as per HPI Genitourinary: Reports as per HPI Musculoskeletal: Reports as per HPI Skin/Breast: Reports as per HPI Reports as per HPI Psychiatric: Reports as per HPI Endocrine: Reports as per HPI Hematologic/Lymphatic: Reports as per HPI Allergic/Immunologic: Reports as per HPI Mental Status Exam Mental Status Exam Narrative: Pt is alert and oriented; behavior is cooperative and calm; dressed in casual attire; mood is described as sad and nervous ; eye contact appropriate; Speech is normal rate, volume, not pressured, mumbles; disorganized, laughing inappropriately during conversation; denies HI/VH/AH; observed responding to internal stimuli. Pt reports suicidal ideation with no plan. Diagnostics Vital Signs (24Hr): Vital Signs - 24 hr 02/07/24 07:45 Temperature 97.5 F Pulse Rate 98 Respiratory Rate 16 Blood Pressure 121/78 Pulse Oximetry 96 Oxygen Delivery Method Room Air BMI result Body Mass Index 29.3 Labs 02/02/24 21:13 Medications Medications Current Medications Acetaminophen (Acetaminophen 325 Mg Tablet) 650 mg PO Q6H PRN PRN Reason: Headache/Pain Mild Scale (1-3) Last Admin: 02/07/24 10:51 Dose: 650 mg Al Hydroxide/Mg Hydroxide (Magnesium Hydrox/Alum Hydrox 30 Ml Oral.Susp) 30 ml PO Q6H PRN PRN Reason: Heartburn/Nausea Last Admin: 02/06/24 06:47 Dose: 30 ml Benzocaine (Throat Lozenge, Medicated Lozenge) 1 lozenge MUCOUS MEM Q2H PRN PRN Reason: Sore Throat Empagliflozin (Empagliflozin 10 Mg Tablet) 10 mg PO DAILY [facility] Last Admin: 02/07/24 08:22 Dose: 10 mg Hydroxyzine HCl (Hydroxyzine Hcl 25 Mg Tablet) 25 mg PO Q6H PRN PRN Reason: Anxiety Last Admin: 02/07/24 11:34 Dose: 25 mg [place] Citrate ([place] Citrate Oral Anayeli 300 Mg (8 Meq)/5 Ml) 450 mg PO BID [facility] Last Admin: 02/07/24 08:22 Dose: 450 mg Magnesium Hydroxide (Milk Of Magnesia 30 Ml Oral.Susp) 30 ml PO DAILY PRN PRN Reason: Constipation Nicotine (Nicotine 21 Mg Patch.Td24) 21 mg TRANSDERMA DAILY PRN PRN Reason: smoking cessation Nicotine Polacrilex (Nicotine Polacrilex 2 Mg Gum) 4 mg BUCCAL Q2H PRN PRN Reason: nicotine cravings Olanzapine (Olanzapine 5 Mg Tablet) 5 mg PO TID PRN PRN Reason: agitation Last Admin: 02/07/24 11:34 Dose: 5 mg Olanzapine (Olanzapine Odt 10 Mg Tab.Rapdis) 15 mg TRANSLINGU BEDTIME [facility] Last Admin: 02/06/24 22:50 Dose: 15 mg Ondansetron HCl (Ondansetron Odt 4 Mg Tab.Rapdis) 4 mg TRANSLINGU Q8H PRN PRN Reason: Nausea Last Admin: 02/06/24 10:45 Dose: 4 mg Propranolol HCl (Propranolol Hcl 10 Mg Tablet) 10 mg PO DAILY [facility]; Protocol Last Admin: 02/07/24 08:22 Dose: 10 mg Trazodone HCl (Trazodone Hcl 50 Mg Tablet) 50 mg PO BEDTIME MRX1 PRN PRN Reason: Insomnia Last Admin: 02/03/24 22:20 Dose: 50 mg Allergies Allergies Allergy/AdvReac Type Severity Reaction Status Date / Time No Known Allergies Allergy Verified 01/20/24 17:37 Assessment & Plan Assessment & Plan (1) Bipolar I disorder with mood-congruent psychotic features: Status: Acute Code(s): F31.9 - Bipolar disorder, unspecified (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 continue thorazine for now until better understood. pt does not appear lithium toxic and renal fxn WNL. will check lithium tomorrow night. restart/continue home medications otherwise. 01/21: Met with diplomatic interpreter present. Pt spontaneously laughing at times; appears to be responding to internal stimuli. Guarded. Responding with one words answers to questions. Pt reports feeling okay . denies SI/HI/VH/AH. keeping to self. 01/22: Pt laying in bed, staring at wall away from T/W and service unit operator. Pt not responding to questions despite numerous attempts. Pt refused medications and vital signs this morning. Continue to encourage medication compliance. 01/23: Met with diplomatic interpreter present. Pt laying in bed, staring at T/W and service unit operator but not responding to questions despite numerous attempts. Pt medication compliant this morning. observed eating breakfast. keeping to self. 01/24: no change in presentation. check lithium level tomorrow delmi. not consistently taking neuroleptics but IS consistently taking lithium. 01/25: selectively mute. per service unit operator collateral, he was with her when financial services met with her yesterday and she was fully verbal and collaborative. labs tonight. continue current mgmt. 01/26: mildly more communicative today. lithium level 0.36, BMP WNL. increase lithium dosing tonight. 01/27: more responsive and verbal today. continue current mgmt. 01/29/2024: lithium just increased 01/27/2024. No changes to current plan 01/29: schedule olanzapine bedtime 5mg 01/30: DC thorazine, increase zyprexa to 10 at HS. mild improvement in the past week. 01/31: UA not strongly indicative of UTI; will forego Tx at present. increase HS zydis to 15 mg. 02/01: mild improvements sustained. sedated in morning. continue current mgmt for now. check lithium level. 02/02: lithium level trending down despite dose increase. recheck lithium. otherwise continue current mgmt. continues improved. 02/03: mild improvement. switch lithium to liquid formulation due to lack of increase in serum level with increase in PO dosing. otherwise continue current mgmt. 02/04: Continue current regimen and plans 02/05: Continue current regimen and plans. Zofran ordered 02/06: Active on unit, observed responding to internal stimuli. diplomatic interpreter present. laughing inappropriately during conversation. Pt reports feeling sad and nervous ; pt did not elaborate. Pt reports suicidal ideation with no plan. she denies HI/VH/AH. [place] level to be drawn tomorrow morning. Patient educated on: diagnosis and medication risk/benefits Reason for continued inpatient stay Substantial Risk for: harm to self and med/psych decompensation Time Spent With Patient Time: Total time managing care of this patient today _20___ minutes.
[2024-02-07 20:00] VITALS: BP 150/86; PULSE 117; RESP 16; TEMP 36.6; O2SAT 96
[2024-02-07] MEDS: traZODone HCL 50 MG TABLET PO (21:39)
[2024-02-07] MEDS: OLANZapine ODT 10 MG TAB.RAPDIS 15 MG TRANSLINGU (21:40)
[2024-02-07 23:00] VITALS: BP 136/80; TEMP 36.1
[2024-02-08 07:30] VITALS: BP 115/56; PULSE 101; RESP 16; TEMP 37.2; O2SAT 96
[2024-02-08 08:00] VITALS: BP 115/56; PULSE 101; RESP 16; TEMP 37.2; O2SAT 96
[2024-02-08] MEDS: Empagliflozin 10 MG TABLET PO (08:09)
[2024-02-08] MEDS: Propranolol HCL 10 MG TABLET PO (08:09)
[2024-02-08] MEDS: Acetaminophen 325 MG TABLET 650 MG PO ×2 (08:09→22:32)
[2024-02-08 08:31] LABS: Anion Gap 15 (12-20); Blood Urea Nitrogen 10 mg/dL (9-16); Carbon Dioxide 22 mmol/L (22-29); Chloride 108 mmol/L (96-108); Creatinine Clr Calc Pharmacy 120.9; Estimated Glomerular Filt Rate > 60; Potassium 3.9 mmol/L (3.3-5.1); Sodium 141 mmol/L (135-145)
[2024-02-08 08:33] LABS: Lithium 0.38 mmol/L (0.60-1.20)
[2024-02-08 08:47] LABS: TSH reflex Free T4 2.28 uIU/mL (0.32-4.0)
[2024-02-08] MEDS: hydrOXYzine HCL 25 MG TABLET PO ×2 (09:24→15:44)
[2024-02-08] MEDS: OLANZapine 5 MG TABLET PO ×2 (09:24→15:44)
[2024-02-08] MEDS: Magnesium Hydrox/Alum Hydrox 30 ML ORAL.SUSP PO (10:17)
[2024-02-08] MEDS: Throat Lozenge, Medicated LOZENGE 1 LOZENGE MUCOUS MEM (11:59)
--- NOTE | 2024-02-08 15:19 | P.PNPSI_ITS ---
Subjective Subjective Date of Service: 02/08/24 Reason For Visit: Adjustment disorder Subjective Notes: Conditional Voluntary Interim History: Reviewed with Dr. Palmer. Active on unit, observed responding to internal stimuli. rn admissions present. laughing inappropriately during conversation. Pt continues to report feeling sad and nervous ; but does not elaborate when asked to. mumbling throughout conversation. Pt denies SI/HI/AH. She reports having a visual hallucinations last night of a woman dressed in all white . Pt was observed walking out of shower room with [facility] front open and only wearing mesh hospital underwear. Staff escorted pt to room to put on clothing. Medication Compliance: Yes Side effects from medications: No Attending Groups: Intermittent Review of Systems Constitutional: Reports as per HPI Eyes: Reports as per HPI Reports as per HPI Cardiovascular: Reports as per HPI Respiratory: Reports as per HPI Gastrointestinal: Reports as per HPI Musculoskeletal: Reports as per HPI Skin/Breast: Reports as per HPI Reports as per HPI Psychiatric: Reports as per HPI Endocrine: Reports as per HPI Hematologic/Lymphatic: Reports as per HPI Allergic/Immunologic: Reports as per HPI Mental Status Exam Mental Status Exam Narrative: Pt is alert and oriented; behavior is cooperative and calm; dressed in casual attire; mood is described as sad and nervous ; eye contact appropriate; Speech is normal rate, volume, not pressured, mumbles; disorganized, laughing inappropriately during conversation; denies SI/HI/AH; observed responding to internal stimuli. Pt reports having a visual hallucination last night. Diagnostics Vital Signs (24Hr): Vital Signs - 24 hr 02/07/24 20:00 02/07/24 23:00 02/08/24 07:30 Temperature 97.8 F 97 F 98.9 F Pulse Rate 117 H 101 H Respiratory Rate 16 16 Blood Pressure 150/86 H 136/80 115/56 L Pulse Oximetry 96 96 Oxygen Delivery Method Room Air Room Air 02/08/24 08:00 Temperature 98.9 F Pulse Rate 101 H Respiratory Rate 16 Blood Pressure 115/56 L Pulse Oximetry 96 Oxygen Delivery Method Room Air BMI result Body Mass Index 29.3 Labs 02/08/24 08:06 Labs: Laboratory Results - last 48 hr 02/08/24 08:06 Sodium 141 Potassium 3.9 Chloride 108 Carbon Dioxide 22 Anion Gap 15 BUN 10 Creatinine 0.71 Estim Creat Clear Calc 120.9 Estimated GFR > 60 TSH 2.28 [place] 0.38 L Medications Medications Current Medications Acetaminophen (Acetaminophen 325 Mg Tablet) 650 mg PO Q6H PRN PRN Reason: Headache/Pain Mild Scale (1-3) Last Admin: 02/08/24 08:09 Dose: 650 mg Al Hydroxide/Mg Hydroxide (Magnesium Hydrox/Alum Hydrox 30 Ml Oral.Susp) 30 ml PO Q6H PRN PRN Reason: Heartburn/Nausea Last Admin: 02/08/24 10:17 Dose: 30 ml Benzocaine (Throat Lozenge, Medicated Lozenge) 1 lozenge MUCOUS MEM Q2H PRN PRN Reason: Sore Throat Last Admin: 02/08/24 11:59 Dose: 1 lozenge Empagliflozin (Empagliflozin 10 Mg Tablet) 10 mg PO DAILY [facility] Last Admin: 02/08/24 08:09 Dose: 10 mg Hydroxyzine HCl (Hydroxyzine Hcl 25 Mg Tablet) 25 mg PO Q6H PRN PRN Reason: Anxiety Last Admin: 02/08/24 09:24 Dose: 25 mg [place] Citrate ([place] Citrate Oral Anayeli 300 Mg (8 Meq)/5 Ml) 450 mg PO BID [facility] Last Admin: 02/08/24 08:09 Dose: 450 mg Magnesium Hydroxide (Milk Of Magnesia 30 Ml Oral.Susp) 30 ml PO DAILY PRN PRN Reason: Constipation Nicotine (Nicotine 21 Mg Patch.Td24) 21 mg TRANSDERMA DAILY PRN PRN Reason: smoking cessation Nicotine Polacrilex (Nicotine Polacrilex 2 Mg Gum) 4 mg BUCCAL Q2H PRN PRN Reason: nicotine cravings Olanzapine (Olanzapine 5 Mg Tablet) 5 mg PO TID PRN PRN Reason: agitation Last Admin: 02/08/24 09:24 Dose: 5 mg Olanzapine (Olanzapine Odt 10 Mg Tab.Rapdis) 15 mg TRANSLINGU BEDTIME [facility] Last Admin: 02/07/24 21:40 Dose: 15 mg Ondansetron HCl (Ondansetron Odt 4 Mg Tab.Rapdis) 4 mg TRANSLINGU Q8H PRN PRN Reason: Nausea Last Admin: 02/06/24 10:45 Dose: 4 mg Propranolol HCl (Propranolol Hcl 10 Mg Tablet) 10 mg PO DAILY [facility]; Protocol Last Admin: 02/08/24 08:09 Dose: 10 mg Trazodone HCl (Trazodone Hcl 50 Mg Tablet) 50 mg PO BEDTIME MRX1 PRN PRN Reason: Insomnia Last Admin: 02/07/24 21:39 Dose: 50 mg Allergies Allergies Allergy/AdvReac Type Severity Reaction Status Date / Time No Known Allergies Allergy Verified 01/20/24 17:37 Assessment & Plan Assessment & Plan (1) Bipolar I disorder with mood-congruent psychotic features: Status: Acute Code(s): F31.9 - Bipolar disorder, unspecified (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 continue thorazine for now until better understood. pt does not appear lithium toxic and renal fxn WNL. will check lithium tomorrow night. restart/continue home medications otherwise. 01/21: Met with rn admissions present. Pt spontaneously laughing at times; appears to be responding to internal stimuli. Guarded. Responding with one words answers to questions. Pt reports feeling okay . denies SI/HI/VH/AH. keeping to self. 01/22: Pt laying in bed, staring at wall away from T/W and bus steward. Pt not responding to questions despite numerous attempts. Pt refused medications and vital signs this morning. Continue to encourage medication compliance. 01/23: Met with rn admissions present. Pt laying in bed, staring at T/W and bus steward but not responding to questions despite numerous attempts. Pt medication compliant this morning. observed eating breakfast. keeping to self. 01/24: no change in presentation. check lithium level tomorrow delmi. not consistently taking neuroleptics but IS consistently taking lithium. 01/25: selectively mute. per bus steward collateral, he was with her when financial services met with her yesterday and she was fully verbal and collaborative. labs tonight. continue current mgmt. 01/26: mildly more communicative today. lithium level 0.36, BMP WNL. increase lithium dosing tonight. 01/27: more responsive and verbal today. continue current mgmt. 01/29/2024: lithium just increased 01/27/2024. No changes to current plan 01/29: schedule olanzapine bedtime 5mg 01/30: DC thorazine, increase zyprexa to 10 at HS. mild improvement in the past week. 01/31: UA not strongly indicative of UTI; will forego Tx at present. increase HS zydis to 15 mg. 02/01: mild improvements sustained. sedated in morning. continue current mgmt for now. check lithium level. 02/02: lithium level trending down despite dose increase. recheck lithium. otherwise continue current mgmt. continues improved. 02/03: mild improvement. switch lithium to liquid formulation due to lack of increase in serum level with increase in PO dosing. otherwise continue current mgmt. 02/04: Continue current regimen and plans 02/05: Continue current regimen and plans. Zofran ordered 02/06: Active on unit, observed responding to internal stimuli. rn admissions present. laughing inappropriately during conversation. Pt reports feeling sad and nervous ; pt did not elaborate. Pt reports suicidal ideation with no plan. she denies HI/VH/AH. [place] level to be drawn tomorrow morning. 02/07: Active on unit, observed responding to internal stimuli. rn admissions present. laughing inappropriately during conversation. Pt continues to report feeling sad and nervous ; but does not elaborate when asked to. mumbling throughout conversation. Pt denies SI/HI/AH. She reports having a visual hallucinations last night of a woman dressed in all white . Pt was observed walking out of shower room with [facility] front open and only wearing mesh hospital underwear. Staff escorted pt to room to put on clothing. [place] level 0.38 on 02/08/24. Patient educated on: diagnosis and medication risk/benefits Reason for continued inpatient stay Substantial Risk for: med/psych decompensation Time Spent With Patient Time: Total time managing care of this patient today _20___ minutes.
[2024-02-08 20:00] VITALS: BP 131/95; PULSE 115; RESP 18; TEMP 36.9; O2SAT 95
[2024-02-08] MEDS: Docusate Sodium 100 MG CAPSULE PO (20:25)
[2024-02-08] MEDS: OLANZapine ODT 10 MG TAB.RAPDIS 15 MG TRANSLINGU (20:25)
[2024-02-08] MEDS: LORazepam 1 MG TABLET 2 MG PO (20:25)
[2024-02-08] MEDS: traZODone HCL 50 MG TABLET PO (20:27)
[2024-02-09 07:35] VITALS: PULSE 98; RESP 18; TEMP 36.4; O2SAT 99
[2024-02-09 08:21] VITALS: BP 129/82; PULSE 98; RESP 18; TEMP 36.4; O2SAT 99
[2024-02-09] MEDS: OLANZapine 5 MG TABLET PO ×2 (09:22→22:06)
[2024-02-09] MEDS: Empagliflozin 10 MG TABLET PO (09:22)
[2024-02-09] MEDS: hydrOXYzine HCL 25 MG TABLET PO ×2 (09:22→20:21)
[2024-02-09 09:23] VITALS: BP 129/82; PULSE 98
[2024-02-09] MEDS: Propranolol HCL 10 MG TABLET PO (09:23)
[2024-02-09] MEDS: Magnesium Hydrox/Alum Hydrox 30 ML ORAL.SUSP PO (10:06)
--- NOTE | 2024-02-09 10:28 | HO.PSYCHPN ---
Subjective Subjective Date of Service: 02/09/24 Reason For Visit: Adjustment disorder Subjective Notes: Conditional Voluntary Interim History: Reviewed with Dr. Palmer. bilingual interpreter present. pt continues to laugh inappropriately during conversation. mumbling throughout conversation; when asked what is she mumbling, pt does not answer. Pt denies SI/HI/AH/VH. [place] level 0.38 on 02/08/24. [place] increased to 600mg PO BID Medication Compliance: Yes Side effects from medications: No Attending Groups: Intermittent Review of Systems Constitutional: Reports as per HPI Eyes: Reports as per HPI Reports as per HPI Cardiovascular: Reports as per HPI Respiratory: Reports as per HPI Gastrointestinal: Reports as per HPI Musculoskeletal: Reports as per HPI Skin/Breast: Reports as per HPI Reports as per HPI Psychiatric: Reports as per HPI Endocrine: Reports as per HPI Hematologic/Lymphatic: Reports as per HPI Allergic/Immunologic: Reports as per HPI Mental Status Exam Mental Status Exam Narrative: Pt is alert and oriented; behavior is cooperative and calm; dressed in casual attire; mood is described as okay ; eye contact appropriate; Speech is normal rate, volume, not pressured, mumbles; disorganized, laughing inappropriately during conversation; denies SI/HI/AH/VH; observed responding to internal stimuli. Diagnostics Vital Signs (24Hr): Vital Signs - 24 hr 02/08/24 20:00 02/09/24 07:35 02/09/24 08:21 Temperature 98.5 F 97.5 F 97.5 F Pulse Rate 115 H 98 98 Respiratory Rate 18 18 18 Blood Pressure 131/95 H 129/82 Pulse Oximetry 95 99 99 Oxygen Delivery Method Room Air Room Air Room Air 02/09/24 09:23 Temperature Pulse Rate 98 Respiratory Rate Blood Pressure 129/82 Pulse Oximetry Oxygen Delivery Method BMI result Body Mass Index 29.3 Labs 02/08/24 08:06 Labs: Laboratory Results - last 48 hr 02/08/24 08:06 Sodium 141 Potassium 3.9 Chloride 108 Carbon Dioxide 22 Anion Gap 15 BUN 10 Creatinine 0.71 Estim Creat Clear Calc 120.9 Estimated GFR > 60 TSH 2.28 [place] 0.38 L Medications Medications Current Medications Acetaminophen (Acetaminophen 325 Mg Tablet) 650 mg PO Q6H PRN PRN Reason: Headache/Pain Mild Scale (1-3) Last Admin: 02/08/24 22:32 Dose: 650 mg Al Hydroxide/Mg Hydroxide (Magnesium Hydrox/Alum Hydrox 30 Ml Oral.Susp) 30 ml PO Q6H PRN PRN Reason: Heartburn/Nausea Last Admin: 02/09/24 10:06 Dose: 30 ml Benzocaine (Throat Lozenge, Medicated Lozenge) 1 lozenge MUCOUS MEM Q2H PRN PRN Reason: Sore Throat Last Admin: 02/08/24 11:59 Dose: 1 lozenge Docusate Sodium (Docusate Sodium 100 Mg Capsule) 100 mg PO BEDTIME [facility] Last Admin: 02/08/24 20:25 Dose: 100 mg Empagliflozin (Empagliflozin 10 Mg Tablet) 10 mg PO DAILY [facility] Last Admin: 02/09/24 09:22 Dose: 10 mg Hydroxyzine HCl (Hydroxyzine Hcl 25 Mg Tablet) 25 mg PO Q6H PRN PRN Reason: Anxiety Last Admin: 02/09/24 09:22 Dose: 25 mg [place] Citrate ([place] Citrate Oral Anayeli 300 Mg (8 Meq)/5 Ml) 450 mg PO BID [facility] Last Admin: 02/09/24 09:24 Dose: 450 mg Magnesium Hydroxide (Milk Of Magnesia 30 Ml Oral.Susp) 30 ml PO DAILY PRN PRN Reason: Constipation Nicotine (Nicotine 21 Mg Patch.Td24) 21 mg TRANSDERMA DAILY PRN PRN Reason: smoking cessation Nicotine Polacrilex (Nicotine Polacrilex 2 Mg Gum) 4 mg BUCCAL Q2H PRN PRN Reason: nicotine cravings Olanzapine (Olanzapine 5 Mg Tablet) 5 mg PO TID PRN PRN Reason: agitation Last Admin: 02/09/24 09:22 Dose: 5 mg Olanzapine (Olanzapine Odt 10 Mg Tab.Rapdis) 15 mg TRANSLINGU BEDTIME [facility] Last Admin: 02/08/24 20:25 Dose: 15 mg Ondansetron HCl (Ondansetron Odt 4 Mg Tab.Rapdis) 4 mg TRANSLINGU Q8H PRN PRN Reason: Nausea Last Admin: 02/06/24 10:45 Dose: 4 mg Propranolol HCl (Propranolol Hcl 10 Mg Tablet) 10 mg PO DAILY [facility]; Protocol Last Admin: 02/09/24 09:23 Dose: 10 mg Trazodone HCl (Trazodone Hcl 50 Mg Tablet) 50 mg PO BEDTIME MRX1 PRN PRN Reason: Insomnia Last Admin: 02/08/24 20:27 Dose: 50 mg Allergies Allergies Allergy/AdvReac Type Severity Reaction Status Date / Time No Known Allergies Allergy Verified 01/20/24 17:37 Assessment & Plan Assessment & Plan (1) Bipolar I disorder with mood-congruent psychotic features: Status: Acute Code(s): F31.9 - Bipolar disorder, unspecified (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 continue thorazine for now until better understood. pt does not appear lithium toxic and renal fxn WNL. will check lithium tomorrow night. restart/continue home medications otherwise. 01/21: Met with bilingual interpreter present. Pt spontaneously laughing at times; appears to be responding to internal stimuli. Guarded. Responding with one words answers to questions. Pt reports feeling okay . denies SI/HI/VH/AH. keeping to self. 01/22: Pt laying in bed, staring at wall away from T/W and bilingual interpreter. Pt not responding to questions despite numerous attempts. Pt refused medications and vital signs this morning. Continue to encourage medication compliance. 01/23: Met with bilingual interpreter present. Pt laying in bed, staring at T/W and bilingual interpreter but not responding to questions despite numerous attempts. Pt medication compliant this morning. observed eating breakfast. keeping to self. 01/24: no change in presentation. check lithium level tomorrow delmi. not consistently taking neuroleptics but IS consistently taking lithium. 01/25: selectively mute. per bilingual interpreter collateral, he was with her when [employer] met with her yesterday and she was fully verbal and collaborative. labs tonight. continue current mgmt. 01/26: mildly more communicative today. lithium level 0.36, BMP WNL. increase lithium dosing tonight. 01/27: more responsive and verbal today. continue current mgmt. 01/29/2024: lithium just increased 01/27/2024. No changes to current plan 01/29: schedule olanzapine bedtime 5mg 01/30: DC thorazine, increase zyprexa to 10 at HS. mild improvement in the past week. 01/31: UA not strongly indicative of UTI; will forego Tx at present. increase HS zydis to 15 mg. 02/01: mild improvements sustained. sedated in morning. continue current mgmt for now. check lithium level. 02/02: lithium level trending down despite dose increase. recheck lithium. otherwise continue current mgmt. continues improved. 02/03: mild improvement. switch lithium to liquid formulation due to lack of increase in serum level with increase in PO dosing. otherwise continue current mgmt. 02/04: Continue current regimen and plans 02/05: Continue current regimen and plans. Zofran ordered 02/06: Active on unit, observed responding to internal stimuli. bilingual interpreter present. laughing inappropriately during conversation. Pt reports feeling sad and nervous ; pt did not elaborate. Pt reports suicidal ideation with no plan. she denies HI/VH/AH. [place] level to be drawn tomorrow morning. 02/07: Active on unit, observed responding to internal stimuli. bilingual interpreter present. laughing inappropriately during conversation. Pt continues to report feeling sad and nervous ; but does not elaborate when asked to. mumbling throughout conversation. Pt denies SI/HI/AH. She reports having a visual hallucinations last night of a woman dressed in all white . Pt was observed walking out of shower room with [facility] front open and only wearing mesh hospital underwear. Staff escorted pt to room to put on clothing. [place] level 0.38 on 02/08/24. 02/08: bilingual interpreter present. pt continues to laugh inappropriately during conversation. mumbling throughout conversation; when asked what is she mumbling, pt does not answer. Pt denies SI/HI/AH/VH. [place] level 0.38 on 02/08/24. [place] increased to 600mg PO BID Patient educated on: diagnosis and medication risk/benefits Reason for continued inpatient stay Substantial Risk for: med/psych decompensation Time Spent With Patient Time: Total time managing care of this patient today _20___ minutes.
[2024-02-09] MEDS: Acetaminophen 325 MG TABLET 650 MG PO ×2 (14:05→20:18)
[2024-02-09 20:00] VITALS: BP 116/63; PULSE 100; RESP 18; TEMP 37.1; O2SAT 98
[2024-02-09] MEDS: OLANZapine ODT 10 MG TAB.RAPDIS 15 MG TRANSLINGU (20:19)
[2024-02-09] MEDS: traZODone HCL 50 MG TABLET PO ×2 (20:21→22:06)
[2024-02-09] MEDS: Docusate Sodium 100 MG CAPSULE PO (20:22)
[2024-02-10] MEDS: Omeprazole 20 MG CAPSULE.DR PO (06:33)
[2024-02-10] MEDS: Magnesium Hydrox/Alum Hydrox 30 ML ORAL.SUSP PO (06:37)
[2024-02-10 07:00] VITALS: BMI 29.7
[2024-02-10 07:56] VITALS: BP 141/96; PULSE 89; RESP 16; TEMP 36.3; O2SAT 100
[2024-02-10] MEDS: Propranolol HCL 10 MG TABLET PO (08:29)
[2024-02-10] MEDS: Empagliflozin 10 MG TABLET PO (08:30)
[2024-02-10] MEDS: Acetaminophen 325 MG TABLET 650 MG PO (08:30)
--- NOTE | 2024-02-10 09:02 | P.PNPSI_ITS ---
Subjective Subjective Date of Service: 02/10/24 Reason For Visit: Adjustment disorder Subjective Notes: Conditional Voluntary Interim History: Reviewed with Dr. Palmer. angle shearer present. continues to laugh inappropriately throughout the day. mumbling throughout conversation; pt was observed stating, leave me alone while looking to the side of her where no one was standing. When asked if pt was experience hallucinations, pt became quiet, stood up and stated, I don't feel good. I have to go ; and left office. flavor room worker, Jillian, was able to speak to patient's mother, who reported pt has been stable on Depakote and Invega Sustenna in previous hospitalizations. Start: Depakote 250mg PO BID Invega 3mg PO daily Decrease: Zyprexa to 10mg PO bedtime Medication Compliance: Yes Side effects from medications: No Attending Groups: Intermittent Review of Systems Constitutional: Reports as per HPI Eyes: Reports as per HPI Reports as per HPI Cardiovascular: Reports as per HPI Respiratory: Reports as per HPI Gastrointestinal: Reports as per HPI Musculoskeletal: Reports as per HPI Skin/Breast: Reports as per HPI Reports as per HPI Psychiatric: Reports as per HPI Endocrine: Reports as per HPI Hematologic/Lymphatic: Reports as per HPI Allergic/Immunologic: Reports as per HPI Mental Status Exam Mental Status Exam Narrative: Pt is alert and oriented; behavior is cooperative, guarded; dressed in casual attire; mood is described as sad ; eye contact appropriate; Speech is normal rate, volume, not pressured, mumbles; disorganized, laughing inappropriately during conversation; denies SI/HI/AH/VH; observed responding to internal stimuli. Diagnostics Vital Signs (24Hr): Vital Signs - 24 hr 02/09/24 09:23 02/09/24 20:00 02/10/24 07:56 Temperature 98.7 F 97.4 F Pulse Rate 98 100 89 Respiratory Rate 18 16 Blood Pressure 129/82 116/63 141/96 H Pulse Oximetry 98 100 Oxygen Delivery Method Room Air Room Air BMI result Body Mass Index 29.3 Labs 02/08/24 08:06 Medications Medications Current Medications Acetaminophen (Acetaminophen 325 Mg Tablet) 650 mg PO Q6H PRN PRN Reason: Headache/Pain Mild Scale (1-3) Last Admin: 02/10/24 08:30 Dose: 650 mg Al Hydroxide/Mg Hydroxide (Magnesium Hydrox/Alum Hydrox 30 Ml Oral.Susp) 30 ml PO Q6H PRN PRN Reason: Heartburn/Nausea Last Admin: 02/10/24 06:37 Dose: 30 ml Benzocaine (Throat Lozenge, Medicated Lozenge) 1 lozenge MUCOUS MEM Q2H PRN PRN Reason: Sore Throat Last Admin: 02/08/24 11:59 Dose: 1 lozenge Docusate Sodium (Docusate Sodium 100 Mg Capsule) 100 mg PO BEDTIME [facility] Last Admin: 02/09/24 20:22 Dose: 100 mg Empagliflozin (Empagliflozin 10 Mg Tablet) 10 mg PO DAILY [facility] Last Admin: 02/10/24 08:30 Dose: 10 mg Hydroxyzine HCl (Hydroxyzine Hcl 25 Mg Tablet) 25 mg PO Q6H PRN PRN Reason: Anxiety Last Admin: 02/09/24 20:21 Dose: 25 mg [place] Citrate ([place] Citrate Oral Anayeli 300 Mg (8 Meq)/5 Ml) 600 mg PO BID [facility] Last Admin: 02/10/24 08:31 Dose: 600 mg Magnesium Hydroxide (Milk Of Magnesia 30 Ml Oral.Susp) 30 ml PO DAILY PRN PRN Reason: Constipation Nicotine (Nicotine 21 Mg Patch.Td24) 21 mg TRANSDERMA DAILY PRN PRN Reason: smoking cessation Nicotine Polacrilex (Nicotine Polacrilex 2 Mg Gum) 4 mg BUCCAL Q2H PRN PRN Reason: nicotine cravings Olanzapine (Olanzapine 5 Mg Tablet) 5 mg PO TID PRN PRN Reason: agitation Last Admin: 02/09/24 22:06 Dose: 5 mg Olanzapine (Olanzapine Odt 10 Mg Tab.Rapdis) 15 mg TRANSLINGU BEDTIME [facility] Last Admin: 02/09/24 20:19 Dose: 15 mg Omeprazole (Omeprazole 20 Mg Capsule.Dr) 20 mg PO DAILY@0630 [facility] Last Admin: 02/10/24 06:33 Dose: 20 mg Ondansetron HCl (Ondansetron Odt 4 Mg Tab.Rapdis) 4 mg TRANSLINGU Q8H PRN PRN Reason: Nausea Last Admin: 02/06/24 10:45 Dose: 4 mg Propranolol HCl (Propranolol Hcl 10 Mg Tablet) 10 mg PO DAILY [facility]; Protocol Last Admin: 02/10/24 08:29 Dose: 10 mg Trazodone HCl (Trazodone Hcl 50 Mg Tablet) 50 mg PO BEDTIME MRX1 PRN PRN Reason: Insomnia Last Admin: 02/09/24 22:06 Dose: 50 mg Allergies Allergies Allergy/AdvReac Type Severity Reaction Status Date / Time No Known Allergies Allergy Verified 01/20/24 17:37 Assessment & Plan Assessment & Plan (1) Bipolar I disorder with mood-congruent psychotic features: Status: Acute Code(s): F31.9 - Bipolar disorder, unspecified (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 continue thorazine for now until better understood. pt does not appear lithium toxic and renal fxn WNL. will check lithium tomorrow night. restart/continue home medications otherwise. 01/21: Met with angle shearer present. Pt spontaneously laughing at times; appears to be responding to internal stimuli. Guarded. Responding with one words answers to questions. Pt reports feeling okay . denies SI/HI/VH/AH. keeping to self. 01/22: Pt laying in bed, staring at wall away from T/W and poultry and fish butcher. Pt not responding to questions despite numerous attempts. Pt refused medications and vital signs this morning. Continue to encourage medication compliance. 01/23: Met with angle shearer present. Pt laying in bed, staring at T/W and poultry and fish butcher but not responding to questions despite numerous attempts. Pt medication compliant this morning. observed eating breakfast. keeping to self. 01/24: no change in presentation. check lithium level tomorrow delmi. not consistently taking neuroleptics but IS consistently taking lithium. 01/25: selectively mute. per poultry and fish butcher collateral, he was with her when financial services met with her yesterday and she was fully verbal and collaborative. labs tonight. continue current mgmt. 01/26: mildly more communicative today. lithium level 0.36, BMP WNL. increase lithium dosing tonight. 01/27: more responsive and verbal today. continue current mgmt. 01/29/2024: lithium just increased 01/27/2024. No changes to current plan 01/29: schedule olanzapine bedtime 5mg 01/30: DC thorazine, increase zyprexa to 10 at HS. mild improvement in the past week. 01/31: UA not strongly indicative of UTI; will forego Tx at present. increase HS zydis to 15 mg. 02/01: mild improvements sustained. sedated in morning. continue current mgmt for now. check lithium level. 02/02: lithium level trending down despite dose increase. recheck lithium. otherwise continue current mgmt. continues improved. 02/03: mild improvement. switch lithium to liquid formulation due to lack of increase in serum level with increase in PO dosing. otherwise continue current mgmt. 02/04: Continue current regimen and plans 02/05: Continue current regimen and plans. Zofran ordered 02/06: Active on unit, observed responding to internal stimuli. angle shearer present. laughing inappropriately during conversation. Pt reports feeling sad and nervous ; pt did not elaborate. Pt reports suicidal ideation with no plan. she denies HI/VH/AH. [place] level to be drawn tomorrow morning. 02/07: Active on unit, observed responding to internal stimuli. angle shearer present. laughing inappropriately during conversation. Pt continues to report feeling sad and nervous ; but does not elaborate when asked to. mumbling throughout conversation. Pt denies SI/HI/AH. She reports having a visual hallucinations last night of a woman dressed in all white . Pt was observed walking out of shower room with [facility] front open and only wearing mesh hospital underwear. Staff escorted pt to room to put on clothing. [place] level 0.38 on 02/08/24. 02/08: angle shearer present. pt continues to laugh inappropriately during conversation. mumbling throughout conversation; when asked what is she mumbling, pt does not answer. Pt denies SI/HI/AH/VH. [place] level 0.38 on 02/08/24. [place] increased to 600mg PO BID 02/09: continues to laugh inappropriately throughout the day. mumbling throughout conversation; pt was observed stating, leave me alone while looking to the side of her where no one was standing. When asked if pt was experience hallucinations, pt became quiet, stood up and stated, I don't feel good. I have to go ; and left office. flavor room worker, Jillian, was able to speak to patient's mother, who reported pt has been stable on Depakote and Invega Sustenna in previous hospitalizations. Start: Depakote 250mg PO BID Invega 3mg PO daily Decrease: Zyprexa to 10mg PO bedtime Patient educated on: diagnosis and medication risk/benefits Reason for continued inpatient stay Substantial Risk for: med/psych decompensation Time Spent With Patient Time: Total time managing care of this patient today _20___ minutes.
--- NOTE | 2024-02-10 11:48 | MHC.CLN ---
RE: CONSULT CONSULT ENTERED FOR POOR APPETITE D/T DENTAL ISSUES DYSPHAGIA CONSULT RECOMMEND HOUSE DETECTIVE EVAL FOR APPROPRIATE DIET CONSISTENCY WILL DEFER CONSULT TO HOUSE DETECTIVE
--- NOTE | 2024-02-10 13:22 | MHC.SL.SWA ---
Speech Pathologist Impression: Risk of Aspiration Due to: None Dysphasia Diet Status: Liquid Consistency and Strategies for Safe Swallow: Liquid Intake Recommendation: Thin Liquid Intake Strategies: Liquids by Teaspoon Only Solid Food Consistency: Dietary Recommendations: Chopped/Advanced (NDD3) Additional Modifications to Solid Foods: We discussed her options and she is supportive of trialing Chopped/Advanced Solids with Thin Liquids. ASSISTANT VICE PRESIDENT discussed with her that this would limit her menu options, in particular the Every Day Menu options which she verbalized understanding. ASSISTANT VICE PRESIDENT will return tomorrow to interview the patient. Oral Medication Intake: Whole with Liquid Please contact the pharmacy regarding appropriate crushable or liquid drug formulations that are available whenever modified delivery is recommended. Compensatory Strategies and Precautions to be Taken for Safe Swallow: Sitting Upright (90 deg) Supervision While Eating and Drinking for Safe Swallow: Intermittent Supervision Foods to Avoid: Swallowing Recommended Treatments: Compens. Strategy Educat. Recommendation for Speech: Inpatient Speech Therapy Frequency/Duration: Daily Date Range for Service Req: Admission Timeline to reassess: PRN Vice President Investor Relations Clinican/Clinical Fellow: No Supervisory Statement: I have reviewed and agree with the student/clinical fellow's documentation: N/A Speech Language Pathologist: Murray Narvaez M.A., CCC-ASSISTANT VICE PRESIDENT
--- NOTE | 2024-02-10 13:43 | MHC.SPEECHCO ---
PRINTED CIRCUIT PHOTOGRAPHER services deferred per her treating provider. Please re-refer if status changes.
[2024-02-10] MEDS: Ondansetron ODT 4 MG TAB.RAPDIS TRANSLINGU (13:49)
[2024-02-10 19:35] VITALS: BP 148/98; PULSE 93; RESP 16; TEMP 36.5; O2SAT 97
[2024-02-10] MEDS: OLANZapine ODT 10 MG TAB.RAPDIS TRANSLINGU (20:44)
[2024-02-10] MEDS: OLANZapine 5 MG TABLET PO (20:44)
[2024-02-10] MEDS: hydrOXYzine HCL 25 MG TABLET PO (20:44)
[2024-02-10] MEDS: Divalproex Sodium 250 MG TABLET.DR PO (20:44)
[2024-02-10] MEDS: traZODone HCL 50 MG TABLET PO (20:44)
[2024-02-10] MEDS: Docusate Sodium 100 MG CAPSULE PO (20:44)
[2024-02-10] MEDS: Throat Lozenge, Medicated LOZENGE 1 LOZENGE MUCOUS MEM (20:45)
[2024-02-11] MEDS: traZODone HCL 50 MG TABLET PO ×3 (00:42→23:43)
[2024-02-11] MEDS: OLANZapine 5 MG TABLET PO ×3 (00:45→21:09)
[2024-02-11] MEDS: Magnesium Hydrox/Alum Hydrox 30 ML ORAL.SUSP PO ×2 (02:31→16:35)
[2024-02-11] MEDS: hydrOXYzine HCL 25 MG TABLET PO ×3 (02:33→23:43)
[2024-02-11 08:00] VITALS: BP 120/60; PULSE 108; TEMP 37; O2SAT 97
[2024-02-11 08:03] VITALS: BP 140/79; PULSE 127
[2024-02-11] MEDS: Propranolol HCL 10 MG TABLET PO (08:03)
[2024-02-11] MEDS: Empagliflozin 10 MG TABLET PO (08:03)
[2024-02-11] MEDS: Paliperidone ER 3 MG TAB.ER.24 PO (08:04)
[2024-02-11] MEDS: Divalproex Sodium 250 MG TABLET.DR PO ×2 (08:04→21:09)
[2024-02-11] MEDS: Omeprazole 20 MG CAPSULE.DR PO (08:04)
--- NOTE | 2024-02-11 09:29 | P.PNPSI_ITS ---
Subjective Subjective Date of Service: 02/11/24 Reason For Visit: Adjustment disorder Subjective Notes: Conditional Voluntary Interim History: Reviewed with Dr. Palmer. microbiology soil scientist present. similar to yesterdays presentation. continues to laugh inappropriately and mumble to self. She reports feeling sad ; denies SI/HI/VH/AH. Medication Compliance: Yes Side effects from medications: No Attending Groups: Intermittent Review of Systems Constitutional: Reports as per HPI Eyes: Reports as per HPI Reports as per HPI Cardiovascular: Reports as per HPI Respiratory: Reports as per HPI Gastrointestinal: Reports as per HPI Musculoskeletal: Reports as per HPI Skin/Breast: Reports as per HPI Reports as per HPI Psychiatric: Reports as per HPI Endocrine: Reports as per HPI Hematologic/Lymphatic: Reports as per HPI Allergic/Immunologic: Reports as per HPI Mental Status Exam Mental Status Exam Narrative: Pt is alert and oriented; behavior is cooperative, guarded; dressed in casual attire; mood is described as sad ; eye contact appropriate; Speech is normal rate, volume, not pressured, mumbles; disorganized, laughing inappropriately during conversation; denies SI/HI/AH/VH; observed responding to internal stimuli. Diagnostics Vital Signs (24Hr): Vital Signs - 24 hr 02/10/24 19:35 02/11/24 08:00 02/11/24 08:03 Temperature 97.7 F 98.6 F Pulse Rate 93 108 H 127 H Respiratory Rate 16 Blood Pressure 148/98 H 120/60 140/79 H Pulse Oximetry 97 97 Oxygen Delivery Method Room Air Room Air BMI result Body Mass Index 29.7 Labs 02/08/24 08:06 Medications Medications Current Medications Acetaminophen (Acetaminophen 325 Mg Tablet) 650 mg PO Q6H PRN PRN Reason: Headache/Pain Mild Scale (1-3) Last Admin: 02/10/24 08:30 Dose: 650 mg Al Hydroxide/Mg Hydroxide (Magnesium Hydrox/Alum Hydrox 30 Ml Oral.Susp) 30 ml PO Q6H PRN PRN Reason: Heartburn/Nausea Last Admin: 02/11/24 02:31 Dose: 30 ml Benzocaine (Throat Lozenge, Medicated Lozenge) 1 lozenge MUCOUS MEM Q2H PRN PRN Reason: Sore Throat Last Admin: 02/10/24 20:45 Dose: 1 lozenge Divalproex Sodium (Divalproex Sodium 250 Mg Tablet.) 250 mg PO BID [facility] Last Admin: 02/11/24 08:04 Dose: 250 mg Docusate Sodium (Docusate Sodium 100 Mg Capsule) 100 mg PO BEDTIME [facility] Last Admin: 02/10/24 20:44 Dose: 100 mg Empagliflozin (Empagliflozin 10 Mg Tablet) 10 mg PO DAILY [facility] Last Admin: 02/11/24 08:03 Dose: 10 mg Hydroxyzine HCl (Hydroxyzine Hcl 25 Mg Tablet) 25 mg PO Q6H PRN PRN Reason: Anxiety Last Admin: 02/11/24 02:33 Dose: 25 mg [place] Citrate ([place] Citrate Oral Anayeli 300 Mg (8 Meq)/5 Ml) 600 mg PO BID [facility] Last Admin: 02/11/24 08:04 Dose: 600 mg Magnesium Hydroxide (Milk Of Magnesia 30 Ml Oral.Susp) 30 ml PO DAILY PRN PRN Reason: Constipation Nicotine (Nicotine 21 Mg Patch.Td24) 21 mg TRANSDERMA DAILY PRN PRN Reason: smoking cessation Nicotine Polacrilex (Nicotine Polacrilex 2 Mg Gum) 4 mg BUCCAL Q2H PRN PRN Reason: nicotine cravings Olanzapine (Olanzapine 5 Mg Tablet) 5 mg PO TID PRN PRN Reason: agitation Last Admin: 02/11/24 00:45 Dose: 5 mg Olanzapine (Olanzapine Odt 10 Mg Tab.Rapdis) 10 mg TRANSLINGU BEDTIME [facility] Last Admin: 02/10/24 20:44 Dose: 10 mg Omeprazole (Omeprazole 20 Mg Capsule.) 20 mg PO DAILY@0630 [facility] Last Admin: 02/11/24 08:04 Dose: 20 mg Ondansetron HCl (Ondansetron Odt 4 Mg Tab.Rapdis) 4 mg TRANSLINGU Q8H PRN PRN Reason: Nausea Last Admin: 02/10/24 13:49 Dose: 4 mg Paliperidone (Paliperidone Er 3 Mg Tab.Er.24) 3 mg PO DAILY [facility] Last Admin: 02/11/24 08:04 Dose: 3 mg Propranolol HCl (Propranolol Hcl 10 Mg Tablet) 10 mg PO DAILY [facility]; Protocol Last Admin: 02/11/24 08:03 Dose: 10 mg Trazodone HCl (Trazodone Hcl 50 Mg Tablet) 50 mg PO BEDTIME MRX1 PRN PRN Reason: Insomnia Last Admin: 02/11/24 00:42 Dose: 50 mg Allergies Allergies Allergy/AdvReac Type Severity Reaction Status Date / Time No Known Allergies Allergy Verified 01/20/24 17:37 Assessment & Plan Assessment & Plan (1) Bipolar I disorder with mood-congruent psychotic features: Status: Acute Code(s): F31.9 - Bipolar disorder, unspecified (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 continue thorazine for now until better understood. pt does not appear lithium toxic and renal fxn WNL. will check lithium tomorrow night. restart/continue home medications otherwise. 01/21: Met with microbiology soil scientist present. Pt spontaneously laughing at times; appears to be responding to internal stimuli. Guarded. Responding with one words answers to questions. Pt reports feeling okay . denies SI/HI/VH/AH. keeping to self. 01/22: Pt laying in bed, staring at wall away from T/W and seat scooper machine. Pt not responding to questions despite numerous attempts. Pt refused medications and vital signs this morning. Continue to encourage medication compliance. 01/23: Met with microbiology soil scientist present. Pt laying in bed, staring at T/W and seat scooper machine but not responding to questions despite numerous attempts. Pt medication compliant this morning. observed eating breakfast. keeping to self. 01/24: no change in presentation. check lithium level tomorrow delmi. not consistently taking neuroleptics but IS consistently taking lithium. 01/25: selectively mute. per seat scooper machine collateral, he was with her when [employer] services met with her yesterday and she was fully verbal and collaborative. labs tonight. continue current mgmt. 01/26: mildly more communicative today. lithium level 0.36, BMP WNL. increase lithium dosing tonight. 01/27: more responsive and verbal today. continue current mgmt. 01/29/2024: lithium just increased 01/27/2024. No changes to current plan 01/29: schedule olanzapine bedtime 5mg 01/30: DC thorazine, increase zyprexa to 10 at HS. mild improvement in the past week. 01/31: UA not strongly indicative of UTI; will forego Tx at present. increase HS zydis to 15 mg. 02/01: mild improvements sustained. sedated in morning. continue current mgmt for now. check lithium level. 02/02: lithium level trending down despite dose increase. recheck lithium. otherwise continue current mgmt. continues improved. 02/03: mild improvement. switch lithium to liquid formulation due to lack of increase in serum level with increase in PO dosing. otherwise continue current mgmt. 02/04: Continue current regimen and plans 02/05: Continue current regimen and plans. Zofran ordered 02/06: Active on unit, observed responding to internal stimuli. microbiology soil scientist present. laughing inappropriately during conversation. Pt reports feeling sad and nervous ; pt did not elaborate. Pt reports suicidal ideation with no plan. she denies HI/VH/AH. [place] level to be drawn tomorrow morning. 02/07: Active on unit, observed responding to internal stimuli. microbiology soil scientist present. laughing inappropriately during conversation. Pt continues to report feeling sad and nervous ; but does not elaborate when asked to. mumbling throughout conversation. Pt denies SI/HI/AH. She reports having a visual hallucinations last night of a woman dressed in all white . Pt was observed walking out of shower room with [facility] front open and only wearing mesh hospital underwear. Staff escorted pt to room to put on clothing. [place] level 0.38 on 02/08/24. 02/08: microbiology soil scientist present. pt continues to laugh inappropriately during conversation. mumbling throughout conversation; when asked what is she mumbling, pt does not answer. Pt denies SI/HI/AH/VH. [place] level 0.38 on 02/08/24. [place] increased to 600mg PO BID 02/09: continues to laugh inappropriately throughout the day. mumbling throughout conversation; pt was observed stating, leave me alone while looking to the side of her where no one was standing. When asked if pt was experience hallucinations, pt became quiet, stood up and stated, I don't feel good. I have to go ; and left office. rotary shear worker helper, Jillian, was able to speak to patient's mother, who reported pt has been stable on Depakote and Invega Sustenna in previous hospitalizations. Start: Depakote 250mg PO BID Invega 3mg PO daily Decrease: Zyprexa to 10mg PO bedtime 02/10: continue current tx plan. Patient educated on: diagnosis and medication risk/benefits Reason for continued inpatient stay Substantial Risk for: med/psych decompensation Time Spent With Patient Time: Total time managing care of this patient today _20___ minutes.
[2024-02-11] MEDS: Nicotine Polacrilex 2 MG GUM 4 MG BUCCAL ×2 (12:31→16:07)
[2024-02-11] MEDS: Acetaminophen 325 MG TABLET 650 MG PO ×2 (12:49→23:43)
[2024-02-11] MEDS: Docusate Sodium 100 MG CAPSULE PO (21:09)
[2024-02-11] MEDS: OLANZapine ODT 10 MG TAB.RAPDIS TRANSLINGU (21:09)
[2024-02-11] MEDS: Throat Lozenge, Medicated LOZENGE 1 LOZENGE MUCOUS MEM ×2 (21:09→23:43)
[2024-02-11 21:15] VITALS: BP 121/75; PULSE 102; RESP 18; TEMP 36.9; O2SAT 98
[2024-02-11] MEDS: Fluconazole 150 MG TABLET PO (22:49)
[2024-02-12] MEDS: Nicotine Polacrilex 2 MG GUM 4 MG BUCCAL ×3 (00:17→21:57)
[2024-02-12] MEDS: Omeprazole 20 MG CAPSULE.DR PO (06:28)
[2024-02-12] MEDS: Acetaminophen 325 MG TABLET 650 MG PO ×2 (07:25→15:18)
[2024-02-12 08:00] VITALS: BP 145/81; PULSE 111; TEMP 36.4; O2SAT 100
[2024-02-12 08:17] VITALS: BP 145/81; PULSE 111
[2024-02-12] MEDS: Propranolol HCL 10 MG TABLET PO (08:17)
[2024-02-12] MEDS: Divalproex Sodium 250 MG TABLET.DR PO ×2 (08:17→21:56)
[2024-02-12] MEDS: Paliperidone ER 3 MG TAB.ER.24 PO (08:17)
[2024-02-12] MEDS: Empagliflozin 10 MG TABLET PO (08:18)
[2024-02-12] MEDS: Nicotine 21 MG PATCH.TD24 TRANSDERMA (08:38)
[2024-02-12] MEDS: Magnesium Hydrox/Alum Hydrox 30 ML ORAL.SUSP PO (08:51)
--- NOTE | 2024-02-12 08:56 | P.PNPSI_ITS ---
Subjective Subjective Date of Service: 02/12/24 Reason For Visit: Adjustment disorder Subjective Notes: Conditional Voluntary Interim History: Pt had difficulty sleeping. Pt continues to present as labile, internally preoccupied. Vague and unclear somatic symptoms. Reports vaginal itchiness given diflucan for yeast infection. However, later reports itchiness around anus. Can't give clear answer as to last BM or if having abdominal pain. KUB shows moderate constipation without obstruction or acute process. Review of Systems Review of Systems Left abdominal discomfort/pain Yes all other systems are reviewed and are negative and Unobtainable due to mental status Constitutional: Reports as per HPI Eyes: Reports as per HPI Reports as per HPI Cardiovascular: Reports as per HPI Respiratory: Reports as per HPI Gastrointestinal: Reports as per HPI Musculoskeletal: Reports as per HPI Skin/Breast: Reports as per HPI Reports as per HPI Psychiatric: Reports as per HPI Endocrine: Reports as per HPI Hematologic/Lymphatic: Reports as per HPI Allergic/Immunologic: Reports as per HPI Mental Status Exam Mental Status Exam Narrative: Pt is alert and oriented not to situation; behavior is cooperative, guarded; dressed in casual attire;affect is labile; eye contact intense at times; Speech is normal rate, volume, not pressured, mumbles; disorganized, laughing inappropriately during conversation; denies SI/HI/AH/VH; observed responding to internal stimuli. Diagnostics Vital Signs (24Hr): Vital Signs - 24 hr 02/11/24 21:15 02/12/24 08:00 02/12/24 08:17 Temperature 98.4 F 97.5 F Pulse Rate 102 H 111 H 111 H Respiratory Rate 18 Blood Pressure 121/75 145/81 H 145/81 H Pulse Oximetry 98 100 Oxygen Delivery Method Room Air Room Air BMI result Body Mass Index 29.7 Labs 02/08/24 08:06 Medications Medications Current Medications Acetaminophen (Acetaminophen 325 Mg Tablet) 650 mg PO Q6H PRN PRN Reason: Headache/Pain Mild Scale (1-3) Last Admin: 02/12/24 07:25 Dose: 650 mg Al Hydroxide/Mg Hydroxide (Magnesium Hydrox/Alum Hydrox 30 Ml Oral.Susp) 30 ml PO Q6H PRN PRN Reason: Heartburn/Nausea Last Admin: 02/11/24 16:35 Dose: 30 ml Benzocaine (Throat Lozenge, Medicated Lozenge) 1 lozenge MUCOUS MEM Q2H PRN PRN Reason: Sore Throat Last Admin: 02/11/24 23:43 Dose: 1 lozenge Divalproex Sodium (Divalproex Sodium 250 Mg Tablet.) 250 mg PO BID [facility] Last Admin: 02/12/24 08:17 Dose: 250 mg Docusate Sodium (Docusate Sodium 100 Mg Capsule) 100 mg PO BEDTIME [facility] Last Admin: 02/11/24 21:09 Dose: 100 mg Empagliflozin (Empagliflozin 10 Mg Tablet) 10 mg PO DAILY [facility] Last Admin: 02/12/24 08:18 Dose: 10 mg Hydroxyzine HCl (Hydroxyzine Hcl 25 Mg Tablet) 25 mg PO Q6H PRN PRN Reason: Anxiety Last Admin: 02/11/24 23:43 Dose: 25 mg [place] Citrate (Barry Citrate Oral Anayeli 300 Mg (8 Meq)/5 Ml) 600 mg PO BID [facility] Last Admin: 02/12/24 08:17 Dose: 600 mg Magnesium Hydroxide (Milk Of Magnesia 30 Ml Oral.Susp) 30 ml PO DAILY PRN PRN Reason: Constipation Nicotine (Nicotine 21 Mg Patch.Td24) 21 mg TRANSDERMA DAILY PRN PRN Reason: smoking cessation Last Admin: 02/12/24 08:38 Dose: 21 mg Nicotine Polacrilex (Nicotine Polacrilex 2 Mg Gum) 4 mg BUCCAL Q2H PRN PRN Reason: nicotine cravings Last Admin: 02/12/24 06:59 Dose: 4 mg Olanzapine (Olanzapine 5 Mg Tablet) 5 mg PO TID PRN PRN Reason: agitation Last Admin: 02/11/24 21:09 Dose: 5 mg Olanzapine (Olanzapine Odt 10 Mg Tab.Rapdis) 10 mg TRANSLINGU BEDTIME [facility] Last Admin: 02/11/24 21:09 Dose: 10 mg Omeprazole (Omeprazole 20 Mg Capsule.) 20 mg PO DAILY@0630 [facility] Last Admin: 02/12/24 06:28 Dose: 20 mg Ondansetron HCl (Ondansetron Odt 4 Mg Tab.Rapdis) 4 mg TRANSLINGU Q8H PRN PRN Reason: Nausea Last Admin: 02/10/24 13:49 Dose: 4 mg Paliperidone (Paliperidone Er 3 Mg Tab.Er.24) 3 mg PO DAILY [facility] Last Admin: 02/12/24 08:17 Dose: 3 mg Propranolol HCl (Propranolol Hcl 10 Mg Tablet) 10 mg PO DAILY [facility]; Protocol Last Admin: 02/12/24 08:17 Dose: 10 mg Trazodone HCl (Trazodone Hcl 50 Mg Tablet) 50 mg PO BEDTIME MRX1 PRN PRN Reason: Insomnia Last Admin: 02/11/24 23:43 Dose: 50 mg Allergies Allergies Allergy/AdvReac Type Severity Reaction Status Date / Time No Known Allergies Allergy Verified 01/20/24 17:37 Assessment & Plan Assessment & Plan (1) Bipolar I disorder with mood-congruent psychotic features: Status: Acute Code(s): F31.9 - Bipolar disorder, unspecified Plan at admission, pt was started on thorazine 200 QHS while zyprexa 20 QHS was DCed, reasons unclear. continue thorazine for now until better understood. pt does not appear lithium toxic and renal fxn WNL. will check lithium tomorrow night. restart/continue home medications otherwise. 01/21: Met with automotive parts interpreter present. Pt spontaneously laughing at times; appears to be responding to internal stimuli. Guarded. Responding with one words answers to questions. Pt reports feeling okay . denies SI/HI/VH/AH. keeping to self. 01/22: Pt laying in bed, staring at wall away from T/W and translator/interpreter. Pt not responding to questions despite numerous attempts. Pt refused medications and vital signs this morning. Continue to encourage medication compliance. 01/23: Met with automotive parts interpreter present. Pt laying in bed, staring at T/W and translator/interpreter but not responding to questions despite numerous attempts. Pt medication compliant this morning. observed eating breakfast. keeping to self. 01/24: no change in presentation. check lithium level tomorrow delmi. not consistently taking neuroleptics but IS consistently taking lithium. 01/25: selectively mute. per translator/interpreter collateral, he was with her when financial services met with her yesterday and she was fully verbal and collaborative. labs tonight. continue current mgmt. 01/26: mildly more communicative today. lithium level 0.36, BMP WNL. increase lithium dosing tonight. 01/27: more responsive and verbal today. continue current mgmt. 01/29/2024: lithium just increased 01/27/2024. No changes to current plan 01/29: schedule olanzapine bedtime 5mg 01/30: DC thorazine, increase zyprexa to 10 at HS. mild improvement in the past week. 01/31: UA not strongly indicative of UTI; will forego Tx at present. increase HS zydis to 15 mg. 02/01: mild improvements sustained. sedated in morning. continue current mgmt for now. check lithium level. 02/02: lithium level trending down despite dose increase. recheck lithium. otherwise continue current mgmt. continues improved. 02/03: mild improvement. switch lithium to liquid formulation due to lack of increase in serum level with increase in PO dosing. otherwise continue current mgmt. 02/04: Continue current regimen and plans 02/05: Continue current regimen and plans. Zofran ordered 02/06: Active on unit, observed responding to internal stimuli. automotive parts interpreter present. laughing inappropriately during conversation. Pt reports feeling sad and nervous ; pt did not elaborate. Pt reports suicidal ideation with no plan. she denies HI/VH/AH. [place] level to be drawn tomorrow morning. 02/07: Active on unit, observed responding to internal stimuli. automotive parts interpreter present. laughing inappropriately during conversation. Pt continues to report feeling sad and nervous ; but does not elaborate when asked to. mumbling throughout conversation. Pt denies SI/HI/AH. She reports having a visual hallucinations last night of a woman dressed in all white . Pt was observed walking out of shower room with [facility] front open and only wearing mesh hospital underwear. Staff escorted pt to room to put on clothing. [place] level 0.38 on 02/08/24. 02/08: automotive parts interpreter present. pt continues to laugh inappropriately during conversation. mumbling throughout conversation; when asked what is she mumbling, pt does not answer. Pt denies SI/HI/AH/VH. Barry level 0.38 on 02/08/24. Barry increased to 600mg PO BID 02/09: continues to laugh inappropriately throughout the day. mumbling throughout conversation; pt was observed stating, leave me alone while looking to the side of her where no one was standing. When asked if pt was experience hallucinations, pt became quiet, stood up and stated, I don't feel good. I have to go ; and left office. environmental services worker, Jillian, was able to speak to patient's mother, who reported pt has been stable on Depakote and Invega Sustenna in previous hospitalizations. Start: Depakote 250mg PO BID Invega 3mg PO daily Decrease: Zyprexa to 10mg PO bedtime 02/10: continue current tx plan. 02/11 increase olanzapine 20mg po qhs. increase paliperidone to 6mg po daily. Reason for continued inpatient stay Substantial Risk for: inability to function Time Spent With Patient Time: Total time managing care of this patient today ____ minutes.
[2024-02-12] MEDS: hydrOXYzine HCL 25 MG TABLET PO ×2 (09:46→21:57)
[2024-02-12] MEDS: OLANZapine 5 MG TABLET PO (09:46)
[2024-02-12] MEDS: Sennosides/Docusate Sodium TABLET 1 TAB PO ×2 (15:19→21:57)
[2024-02-12 20:00] VITALS: BP 130/87; PULSE 99; RESP 16; TEMP 37.1; O2SAT 98
[2024-02-12] MEDS: Throat Lozenge, Medicated LOZENGE 1 LOZENGE MUCOUS MEM (21:57)
[2024-02-12] MEDS: traZODone HCL 50 MG TABLET PO (21:57)
[2024-02-12] MEDS: OLANZapine ODT 10 MG TAB.RAPDIS 20 MG TRANSLINGU (21:57)
[2024-02-13] MEDS: Nicotine Polacrilex 2 MG GUM 4 MG BUCCAL ×3 (00:13→17:52)
[2024-02-13 09:35] VITALS: BP 136/86; PULSE 105; RESP 16; TEMP 36.4; O2SAT 99
[2024-02-13 09:38] VITALS: BP 136/86; PULSE 105
[2024-02-13] MEDS: Divalproex Sodium 250 MG TABLET.DR PO ×2 (09:38→20:09)
[2024-02-13] MEDS: Propranolol HCL 10 MG TABLET PO (09:38)
[2024-02-13] MEDS: Sennosides/Docusate Sodium TABLET 1 TAB PO ×2 (09:38→20:09)
[2024-02-13] MEDS: Empagliflozin 10 MG TABLET PO (09:39)
[2024-02-13] MEDS: Paliperidone ER 6 MG TAB.ER.24 PO (09:39)
[2024-02-13] MEDS: Nicotine 21 MG PATCH.TD24 TRANSDERMA (09:59)
[2024-02-13] MEDS: Acetaminophen 325 MG TABLET 650 MG PO ×2 (10:56→19:01)
[2024-02-13] MEDS: OLANZapine 5 MG TABLET PO (10:57)
[2024-02-13] MEDS: hydrOXYzine HCL 25 MG TABLET PO (19:02)
[2024-02-13 20:00] VITALS: BP 135/89; PULSE 89; RESP 16; TEMP 36.9; O2SAT 99
[2024-02-13] MEDS: OLANZapine ODT 10 MG TAB.RAPDIS 20 MG TRANSLINGU (20:09)
[2024-02-13] MEDS: traZODone HCL 50 MG TABLET PO (20:09)
--- NOTE | 2024-02-13 21:23 | P.PNPSI_ITS ---
Subjective Subjective Date of Service: 02/13/24 Reason For Visit: Adjustment disorder Subjective Notes: Conditional Voluntary Interim History: Pt had difficulty sleeping. Pt continues to present as labile, internally preoccupied. Vague and unclear somatic symptoms. Reports vaginal itchiness given diflucan for yeast infection. However, later reports itchiness around anus. Can't give clear answer as to last BM or if having abdominal pain. KUB shows moderate constipation without obstruction or acute process. Review of Systems Review of Systems Left abdominal discomfort/pain Yes all other systems are reviewed and are negative and Unobtainable due to mental status Constitutional: Reports as per HPI Eyes: Reports as per HPI Reports as per HPI Cardiovascular: Reports as per HPI Respiratory: Reports as per HPI Gastrointestinal: Reports as per HPI Musculoskeletal: Reports as per HPI Skin/Breast: Reports as per HPI Reports as per HPI Psychiatric: Reports as per HPI Endocrine: Reports as per HPI Hematologic/Lymphatic: Reports as per HPI Allergic/Immunologic: Reports as per HPI Mental Status Exam Mental Status Exam Narrative: Pt is alert and oriented not to situation; behavior is cooperative, guarded; dressed in casual attire;affect is labile; eye contact intense at times; Speech is normal rate, volume, not pressured, mumbles; disorganized, laughing inappropriately during conversation; denies SI/HI/AH/VH; observed responding to internal stimuli. Diagnostics Vital Signs (24Hr): Vital Signs - 24 hr 02/13/24 09:35 02/13/24 09:38 02/13/24 20:00 Temperature 97.5 F 98.5 F Pulse Rate 105 H 105 H 89 Respiratory Rate 16 16 Blood Pressure 136/86 136/86 135/89 Pulse Oximetry 99 99 Oxygen Delivery Method Room Air Room Air BMI result Body Mass Index 29.7 Labs 02/08/24 08:06 Imaging Radiology Impressions: ITS Impressions KUB X-Ray 02/12/24 14:18 IMPRESSION: Moderate constipation. No acute process seen. Medications Medications Current Medications Acetaminophen (Acetaminophen 325 Mg Tablet) 650 mg PO Q6H PRN PRN Reason: Headache/Pain Mild Scale (1-3) Last Admin: 02/13/24 19:01 Dose: 650 mg Al Hydroxide/Mg Hydroxide (Magnesium Hydrox/Alum Hydrox 30 Ml Oral.Susp) 30 ml PO Q6H PRN PRN Reason: Heartburn/Nausea Last Admin: 02/12/24 08:51 Dose: 30 ml Benzocaine (Throat Lozenge, Medicated Lozenge) 1 lozenge MUCOUS MEM Q2H PRN PRN Reason: Sore Throat Last Admin: 02/12/24 21:57 Dose: 1 lozenge Divalproex Sodium (Divalproex Sodium 250 Mg Tablet.) 250 mg PO BID [facility] Last Admin: 02/13/24 20:09 Dose: 250 mg Empagliflozin (Empagliflozin 10 Mg Tablet) 10 mg PO DAILY [facility] Last Admin: 02/13/24 09:39 Dose: 10 mg Hydroxyzine HCl (Hydroxyzine Hcl 25 Mg Tablet) 25 mg PO Q6H PRN PRN Reason: Anxiety Last Admin: 02/13/24 19:02 Dose: 25 mg [place] Citrate ([place] Citrate Oral Anayeli 300 Mg (8 Meq)/5 Ml) 600 mg PO BID [facility] Last Admin: 02/13/24 20:08 Dose: 600 mg Magnesium Hydroxide (Milk Of Magnesia 30 Ml Oral.Susp) 30 ml PO DAILY PRN PRN Reason: Constipation Nicotine (Nicotine 21 Mg Patch.Td24) 21 mg TRANSDERMA DAILY PRN PRN Reason: smoking cessation Last Admin: 02/13/24 09:59 Dose: 21 mg Nicotine Polacrilex (Nicotine Polacrilex 2 Mg Gum) 4 mg BUCCAL Q2H PRN PRN Reason: nicotine cravings Last Admin: 02/13/24 17:52 Dose: 4 mg Olanzapine (Olanzapine 5 Mg Tablet) 5 mg PO TID PRN PRN Reason: agitation Last Admin: 02/13/24 10:57 Dose: 5 mg Olanzapine (Olanzapine Odt 10 Mg Tab.Rapdis) 20 mg TRANSLINGU BEDTIME [facility] Last Admin: 02/13/24 20:09 Dose: 20 mg Omeprazole (Omeprazole 20 Mg Capsule.) 20 mg PO DAILY@0630 [facility] Last Admin: 02/13/24 09:50 Dose: Not Given Ondansetron HCl (Ondansetron Odt 4 Mg Tab.Rapdis) 4 mg TRANSLINGU Q8H PRN PRN Reason: Nausea Last Admin: 02/10/24 13:49 Dose: 4 mg Paliperidone (Paliperidone Er 6 Mg Tab.Er.24) 6 mg PO DAILY [facility] Last Admin: 02/13/24 09:39 Dose: 6 mg Propranolol HCl (Propranolol Hcl 10 Mg Tablet) 10 mg PO DAILY [facility]; Protocol Last Admin: 02/13/24 09:38 Dose: 10 mg Senna/Docusate Sodium (Sennosides/Docusate Sodium Tablet) 1 tab PO BID [facility] Last Admin: 02/13/24 20:09 Dose: 1 tab Trazodone HCl (Trazodone Hcl 50 Mg Tablet) 50 mg PO BEDTIME MRX1 PRN PRN Reason: Insomnia Last Admin: 02/13/24 20:09 Dose: 50 mg Allergies Allergies Allergy/AdvReac Type Severity Reaction Status Date / Time No Known Allergies Allergy Verified 01/20/24 17:37 Assessment & Plan Assessment & Plan (1) Bipolar I disorder with mood-congruent psychotic features: Status: Acute Code(s): F31.9 - Bipolar disorder, unspecified Plan at admission, pt was started on thorazine 200 QHS while zyprexa 20 QHS was DCed, reasons unclear. continue thorazine for now until better understood. pt does not appear lithium toxic and renal fxn WNL. will check lithium tomorrow night. restart/continue home medications otherwise. 01/21: Met with spanish medical interpreter present. Pt spontaneously laughing at times; appears to be responding to internal stimuli. Guarded. Responding with one words answers to questions. Pt reports feeling okay . denies SI/HI/VH/AH. keeping to self. 01/22: Pt laying in bed, staring at wall away from T/W and lang interpreter. Pt not responding to questions despite numerous attempts. Pt refused medications and vital signs this morning. Continue to encourage medication compliance. 01/23: Met with spanish medical interpreter present. Pt laying in bed, staring at T/W and lang interpreter but not responding to questions despite numerous attempts. Pt medication compliant this morning. observed eating breakfast. keeping to self. 01/24: no change in presentation. check lithium level tomorrow delmi. not consistently taking neuroleptics but IS consistently taking lithium. 01/25: selectively mute. per lang interpreter collateral, he was with her when financial services met with her yesterday and she was fully verbal and collaborative. labs tonight. continue current mgmt. 01/26: mildly more communicative today. lithium level 0.36, BMP WNL. increase lithium dosing tonight. 01/27: more responsive and verbal today. continue current mgmt. 01/29/2024: lithium just increased 01/27/2024. No changes to current plan 01/29: schedule olanzapine bedtime 5mg 01/30: DC thorazine, increase zyprexa to 10 at HS. mild improvement in the past week. 01/31: UA not strongly indicative of UTI; will forego Tx at present. increase HS zydis to 15 mg. 02/01: mild improvements sustained. sedated in morning. continue current mgmt for now. check lithium level. 02/02: lithium level trending down despite dose increase. recheck lithium. otherwise continue current mgmt. continues improved. 02/03: mild improvement. switch lithium to liquid formulation due to lack of increase in serum level with increase in PO dosing. otherwise continue current mgmt. 02/04: Continue current regimen and plans 02/05: Continue current regimen and plans. Zofran ordered 02/06: Active on unit, observed responding to internal stimuli. spanish medical interpreter present. laughing inappropriately during conversation. Pt reports feeling sad and nervous ; pt did not elaborate. Pt reports suicidal ideation with no plan. she denies HI/VH/AH. [place] level to be drawn tomorrow morning. 02/07: Active on unit, observed responding to internal stimuli. spanish medical interpreter present. laughing inappropriately during conversation. Pt continues to report feeling sad and nervous ; but does not elaborate when asked to. mumbling throughout conversation. Pt denies SI/HI/AH. She reports having a visual hallucinations last night of a woman dressed in all white . Pt was observed walking out of shower room with [facility] front open and only wearing mesh hospital underwear. Staff escorted pt to room to put on clothing. [place] level 0.38 on 02/08/24. 02/08: spanish medical interpreter present. pt continues to laugh inappropriately during conversation. mumbling throughout conversation; when asked what is she mumbling, pt does not answer. Pt denies SI/HI/AH/VH. [place] level 0.38 on 02/08/24. [place] increased to 600mg PO BID 02/09: continues to laugh inappropriately throughout the day. mumbling throughout conversation; pt was observed stating, leave me alone while looking to the side of her where no one was standing. When asked if pt was experience hallucinations, pt became quiet, stood up and stated, I don't feel good. I have to go ; and left office. warehouse production worker, Jillian, was able to speak to patient's mother, who reported pt has been stable on Depakote and Invega Sustenna in previous hospitalizations. Start: Depakote 250mg PO BID Invega 3mg PO daily Decrease: Zyprexa to 10mg PO bedtime 02/10: continue current tx plan. 02/11 increase olanzapine to 20mg po qhs and increase paliperidone to 6mg po qhs. 02/12 continue tx. Reason for continued inpatient stay Substantial Risk for: inability to function Time Spent With Patient Time: Total time managing care of this patient today ____ minutes.
[2024-02-14] MEDS: OLANZapine 5 MG TABLET PO ×3 (00:29→13:20)
[2024-02-14] MEDS: traZODone HCL 50 MG TABLET PO ×2 (00:29→20:31)
[2024-02-14] MEDS: Omeprazole 20 MG CAPSULE.DR PO (06:19)
[2024-02-14] MEDS: Nicotine Polacrilex 2 MG GUM 4 MG BUCCAL ×2 (06:43→16:38)
[2024-02-14 07:35] VITALS: BP 130/80; PULSE 111; RESP 14; TEMP 36.9; O2SAT 100
[2024-02-14] MEDS: Nicotine 21 MG PATCH.TD24 TRANSDERMA (08:02)
[2024-02-14] MEDS: Sennosides/Docusate Sodium TABLET 1 TAB PO ×2 (08:02→20:31)
[2024-02-14] MEDS: Paliperidone ER 6 MG TAB.ER.24 PO (08:02)
[2024-02-14] MEDS: Empagliflozin 10 MG TABLET PO (08:02)
[2024-02-14] MEDS: Divalproex Sodium 250 MG TABLET.DR PO (08:02)
[2024-02-14] MEDS: hydrOXYzine HCL 25 MG TABLET PO (08:02)
[2024-02-14] MEDS: Propranolol HCL 10 MG TABLET PO (08:02)
[2024-02-14] MEDS: Acetaminophen 325 MG TABLET 650 MG PO ×2 (08:10→16:29)
[2024-02-14 12:06] LABS: Lithium 0.75 mmol/L (0.60-1.20)
[2024-02-14 12:09] LABS: Ammonia 44 umol/L (13-55)
--- NOTE | 2024-02-14 13:51 | HO.PSYCHPN ---
Subjective Subjective Date of Service: 02/14/24 Reason For Visit: Adjustment disorder Interim History: seen individually and with dba developer. mumbling,vague, difficult to understand. c/o nursing staff talking bad about her. laughing in appropriately. c/o LBP, open to PT. open to increase in omep. informed VPA dosing increase. per staff, +RIS. +meds. laughing, labile. lying in [place]. no aggressive behavior. gibberish speech. no sleep past 2 nights. Mental Status Exam Mental Status Exam Narrative: behavior is cooperative, guarded; dressed in casual attire;affect is labile; eye contact intense at times; Speech is normal rate, volume, not pressured, mumbles; disorganized, laughing inappropriately during conversation; denies SI/HI/AH/VH; observed responding to internal stimuli. Diagnostics Vital Signs (24Hr): Vital Signs - 24 hr 02/13/24 20:00 02/14/24 07:35 Temperature 98.5 F 98.4 F Pulse Rate 89 111 H Respiratory Rate 16 14 Blood Pressure 135/89 130/80 Pulse Oximetry 99 100 Oxygen Delivery Method Room Air Room Air BMI result Body Mass Index 29.7 Labs 02/08/24 08:06 Labs: Laboratory Results - last 48 hr 02/14/24 02/14/24 11:48 11:49 Ammonia 44 [place] 0.75 Imaging Radiology Impressions: ITS Impressions KUB X-Ray 02/12/24 14:18 IMPRESSION: Moderate constipation. No acute process seen. Medications Medications Current Medications Acetaminophen (Acetaminophen 325 Mg Tablet) 650 mg PO Q6H PRN PRN Reason: Headache/Pain Mild Scale (1-3) Last Admin: 02/14/24 08:10 Dose: 650 mg Al Hydroxide/Mg Hydroxide (Magnesium Hydrox/Alum Hydrox 30 Ml Oral.Susp) 30 ml PO Q6H PRN PRN Reason: Heartburn/Nausea Last Admin: 02/12/24 08:51 Dose: 30 ml Benzocaine (Throat Lozenge, Medicated Lozenge) 1 lozenge MUCOUS MEM Q2H PRN PRN Reason: Sore Throat Last Admin: 02/12/24 21:57 Dose: 1 lozenge Divalproex Sodium (Divalproex Sodium Er 500 Mg Tab.Er.24h) 1,000 mg PO BEDTIME [facility] Empagliflozin (Empagliflozin 10 Mg Tablet) 10 mg PO DAILY [facility] Last Admin: 02/14/24 08:02 Dose: 10 mg Hydroxyzine HCl (Hydroxyzine Hcl 50 Mg Tablet) 50 mg PO Q6H PRN PRN Reason: Anxiety [place] Citrate ([place] Citrate Oral Anayeli 300 Mg (8 Meq)/5 Ml) 600 mg PO BID [facility] Last Admin: 02/14/24 08:02 Dose: 600 mg Lorazepam (Lorazepam 1 Mg Tablet) 1 mg PO Q4H PRN PRN Reason: agitation Lorazepam (Lorazepam 1 Mg Tablet) 2 mg PO BEDTIME [facility] Magnesium Hydroxide (Milk Of Magnesia 30 Ml Oral.Susp) 30 ml PO DAILY PRN PRN Reason: Constipation Nicotine (Nicotine 21 Mg Patch.Td24) 21 mg TRANSDERMA DAILY PRN PRN Reason: smoking cessation Last Admin: 02/14/24 08:02 Dose: 21 mg Nicotine Polacrilex (Nicotine Polacrilex 2 Mg Gum) 4 mg BUCCAL Q2H PRN PRN Reason: nicotine cravings Last Admin: 02/14/24 06:43 Dose: 4 mg Olanzapine (Olanzapine Odt 10 Mg Tab.Rapdis) 20 mg TRANSLINGU BEDTIME [facility] Last Admin: 02/13/24 20:09 Dose: 20 mg Olanzapine (Olanzapine 5 Mg Tablet) 5 mg PO Q4H PRN PRN Reason: agitation Last Admin: 02/14/24 13:20 Dose: 5 mg Omeprazole (Omeprazole 20 Mg Capsule.Dr) 20 mg PO BID@0700,2000 [facility] Ondansetron HCl (Ondansetron Odt 4 Mg Tab.Rapdis) 4 mg TRANSLINGU Q8H PRN PRN Reason: Nausea Last Admin: 02/10/24 13:49 Dose: 4 mg Paliperidone (Paliperidone Er 6 Mg Tab.Er.24) 6 mg PO DAILY [facility] Last Admin: 02/14/24 08:02 Dose: 6 mg Propranolol HCl (Propranolol Hcl 10 Mg Tablet) 10 mg PO DAILY [facility]; Protocol Last Admin: 02/14/24 08:02 Dose: 10 mg Senna/Docusate Sodium (Sennosides/Docusate Sodium Tablet) 1 tab PO BID [facility] Last Admin: 02/14/24 08:02 Dose: 1 tab Trazodone HCl (Trazodone Hcl 50 Mg Tablet) 50 mg PO BEDTIME MRX1 PRN PRN Reason: Insomnia Last Admin: 02/14/24 00:29 Dose: 50 mg Allergies Allergies Allergy/AdvReac Type Severity Reaction Status Date / Time No Known Allergies Allergy Verified 01/20/24 17:37 Assessment & Plan Assessment & Plan (1) Bipolar I disorder with mood-congruent psychotic features: Status: Acute Code(s): F31.9 - Bipolar disorder, unspecified Plan at admission, pt was started on thorazine 200 QHS while zyprexa 20 QHS was DCed, reasons unclear. continue thorazine for now until better understood. pt does not appear lithium toxic and renal fxn WNL. will check lithium tomorrow night. restart/continue home medications otherwise. 01/21: Met with promotions officer present. Pt spontaneously laughing at times; appears to be responding to internal stimuli. Guarded. Responding with one words answers to questions. Pt reports feeling okay . denies SI/HI/VH/AH. keeping to self. 01/22: Pt laying in bed, staring at wall away from T/W and dba developer. Pt not responding to questions despite numerous attempts. Pt refused medications and vital signs this morning. Continue to encourage medication compliance. 01/23: Met with promotions officer present. Pt laying in bed, staring at T/W and dba developer but not responding to questions despite numerous attempts. Pt medication compliant this morning. observed eating breakfast. keeping to self. 01/24: no change in presentation. check lithium level tomorrow delmi. not consistently taking neuroleptics but IS consistently taking lithium. 01/25: selectively mute. per dba developer collateral, he was with her when financial services met with her yesterday and she was fully verbal and collaborative. labs tonight. continue current mgmt. 01/26: mildly more communicative today. lithium level 0.36, BMP WNL. increase lithium dosing tonight. 01/27: more responsive and verbal today. continue current mgmt. 01/29/2024: lithium just increased 01/27/2024. No changes to current plan 01/29: schedule olanzapine bedtime 5mg 01/30: DC thorazine, increase zyprexa to 10 at HS. mild improvement in the past week. 01/31: UA not strongly indicative of UTI; will forego Tx at present. increase HS zydis to 15 mg. 02/01: mild improvements sustained. sedated in morning. continue current mgmt for now. check lithium level. 02/02: lithium level trending down despite dose increase. recheck lithium. otherwise continue current mgmt. continues improved. 02/03: mild improvement. switch lithium to liquid formulation due to lack of increase in serum level with increase in PO dosing. otherwise continue current mgmt. 02/04: Continue current regimen and plans 02/05: Continue current regimen and plans. Zofran ordered 02/06: Active on unit, observed responding to internal stimuli. promotions officer present. laughing inappropriately during conversation. Pt reports feeling sad and nervous ; pt did not elaborate. Pt reports suicidal ideation with no plan. she denies HI/VH/AH. [place] level to be drawn tomorrow morning. 02/07: Active on unit, observed responding to internal stimuli. promotions officer present. laughing inappropriately during conversation. Pt continues to report feeling sad and nervous ; but does not elaborate when asked to. mumbling throughout conversation. Pt denies SI/HI/AH. She reports having a visual hallucinations last night of a woman dressed in all white . Pt was observed walking out of shower room with [facility] front open and only wearing mesh hospital underwear. Staff escorted pt to room to put on clothing. [place] level 0.38 on 02/08/24. 02/08: promotions officer present. pt continues to laugh inappropriately during conversation. mumbling throughout conversation; when asked what is she mumbling, pt does not answer. Pt denies SI/HI/AH/VH. [place] level 0.38 on 02/08/24. [place] increased to 600mg PO BID 02/09: continues to laugh inappropriately throughout the day. mumbling throughout conversation; pt was observed stating, leave me alone while looking to the side of her where no one was standing. When asked if pt was experience hallucinations, pt became quiet, stood up and stated, I don't feel good. I have to go ; and left office. waterside worker, Jillian, was able to speak to patient's mother, who reported pt has been stable on Depakote and Invega Sustenna in previous hospitalizations. Start: Depakote 250mg PO BID Invega 3mg PO daily Decrease: Zyprexa to 10mg PO bedtime 02/10: continue current tx plan. 02/11 increase olanzapine to 20mg po qhs and increase paliperidone to 6mg po qhs. 02/12 continue tx. 02/13: lithium 0.75, ammonia 44. increase VPA from 250 BID to 1000 QHS. increase PRNs for agitation. start ativan 2 mg QHS for insomnia (no sleep past 2 nights). T/C increase of invega. lithium at therapeutic level but pt appears more overtly psychotic than prior. increase omep to 20 BID for GERD. PT consult for LBP. Reason for continued inpatient stay Substantial Risk for: inability to function Time Spent With Patient Time: Total time managing care of this patient today __35__ minutes.
[2024-02-14 16:27] VITALS: BP 123/77; PULSE 105; RESP 16; TEMP 36.8; O2SAT 100
[2024-02-14] MEDS: Magnesium Hydrox/Alum Hydrox 30 ML ORAL.SUSP PO (16:28)
[2024-02-14] MEDS: LORazepam 1 MG TABLET PO (16:30)
[2024-02-14 20:00] VITALS: BP 134/80; PULSE 100; RESP 16; TEMP 37; O2SAT 96
[2024-02-14] MEDS: hydrOXYzine HCL 50 MG TABLET PO (20:30)
[2024-02-14] MEDS: Divalproex Sodium ER 500 MG TAB.ER.24H 1000 MG PO (20:31)
[2024-02-14] MEDS: LORazepam 1 MG TABLET 2 MG PO (20:31)
[2024-02-14] MEDS: OLANZapine ODT 10 MG TAB.RAPDIS 20 MG TRANSLINGU (20:31)
[2024-02-15 10:49] VITALS: BP 112/70; PULSE 107; RESP 16; TEMP 37; O2SAT 96
[2024-02-15 10:52] VITALS: BP 112/70; PULSE 107
[2024-02-15] MEDS: Propranolol HCL 10 MG TABLET PO (10:52)
[2024-02-15] MEDS: Paliperidone ER 6 MG TAB.ER.24 PO ×2 (10:52→22:27)
[2024-02-15] MEDS: Empagliflozin 10 MG TABLET PO (10:53)
[2024-02-15] MEDS: Sennosides/Docusate Sodium TABLET 1 TAB PO ×2 (10:53→22:28)
[2024-02-15] MEDS: Nicotine 21 MG PATCH.TD24 TRANSDERMA (10:56)
[2024-02-15] MEDS: Milk of Magnesia 30 ML ORAL.SUSP PO (11:04)
--- NOTE | 2024-02-15 12:00 | HO.PSYCHPN ---
Subjective Subjective Date of Service: 02/15/24 Reason For Visit: Adjustment disorder Interim History: appears tired this morning, lying in various positions on her bed. mumbling. poorly engaged. c/o abd pain. seen by PT yesterday. c/o poor sleep. per staff, labile, agitated. taking meds. briefly barricaded self in sensory room. slept 8 hours. Mental Status Exam Mental Status Exam Narrative: behavior is cooperative, guarded; dressed in casual attire;affect is non-labile; poor eye contact; Speech is normal rate, decr amount, not pressured, mumbles; disorganized; no SI/HI/AH/VH expressed. Diagnostics Vital Signs (24Hr): Vital Signs - 24 hr 02/14/24 16:27 02/14/24 20:00 02/15/24 10:49 Temperature 98.2 F 98.6 F 98.6 F Pulse Rate 105 H 100 107 H Respiratory Rate 16 16 16 Blood Pressure 123/77 134/80 112/70 Pulse Oximetry 100 96 96 Oxygen Delivery Method Room Air Room Air Room Air 02/15/24 10:52 Temperature Pulse Rate 107 H Respiratory Rate Blood Pressure 112/70 Pulse Oximetry Oxygen Delivery Method BMI result Body Mass Index 29.7 Labs 02/08/24 08:06 Labs: Laboratory Results - last 48 hr 02/14/24 02/14/24 11:48 11:49 Ammonia 44 [place] 0.75 Imaging Radiology Impressions: ITS Impressions KUB X-Ray 02/12/24 14:18 IMPRESSION: Moderate constipation. No acute process seen. Medications Medications Current Medications Acetaminophen (Acetaminophen 325 Mg Tablet) 650 mg PO Q6H PRN PRN Reason: Headache/Pain Mild Scale (1-3) Last Admin: 02/14/24 16:29 Dose: 650 mg Al Hydroxide/Mg Hydroxide (Magnesium Hydrox/Alum Hydrox 30 Ml Oral.Susp) 30 ml PO Q6H PRN PRN Reason: Heartburn/Nausea Last Admin: 02/14/24 16:28 Dose: 30 ml Benzocaine (Throat Lozenge, Medicated Lozenge) 1 lozenge MUCOUS MEM Q2H PRN PRN Reason: Sore Throat Last Admin: 02/12/24 21:57 Dose: 1 lozenge Divalproex Sodium (Divalproex Sodium Er 500 Mg Tab.Er.24h) 1,000 mg PO BEDTIME [facility] Last Admin: 02/14/24 20:31 Dose: 1,000 mg Empagliflozin (Empagliflozin 10 Mg Tablet) 10 mg PO DAILY [facility] Last Admin: 02/15/24 10:53 Dose: 10 mg Hydroxyzine HCl (Hydroxyzine Hcl 50 Mg Tablet) 50 mg PO Q6H PRN PRN Reason: Anxiety Last Admin: 02/14/24 20:30 Dose: 50 mg [place] Citrate ([place] Citrate Oral Anayeli 300 Mg (8 Meq)/5 Ml) 600 mg PO BID [facility] Last Admin: 02/15/24 10:54 Dose: 600 mg Lorazepam (Lorazepam 1 Mg Tablet) 1 mg PO Q4H PRN PRN Reason: agitation Last Admin: 02/14/24 16:30 Dose: 1 mg Lorazepam (Lorazepam 1 Mg Tablet) 2 mg PO BEDTIME [facility] Last Admin: 02/14/24 20:31 Dose: 2 mg Magnesium Hydroxide (Milk Of Magnesia 30 Ml Oral.Susp) 30 ml PO DAILY PRN PRN Reason: Constipation Last Admin: 02/15/24 11:04 Dose: 30 ml Nicotine (Nicotine 21 Mg Patch.Td24) 21 mg TRANSDERMA DAILY PRN PRN Reason: smoking cessation Last Admin: 02/15/24 10:56 Dose: 21 mg Nicotine Polacrilex (Nicotine Polacrilex 2 Mg Gum) 4 mg BUCCAL Q2H PRN PRN Reason: nicotine cravings Last Admin: 02/14/24 16:38 Dose: 2 mg Olanzapine (Olanzapine Odt 10 Mg Tab.Rapdis) 20 mg TRANSLINGU BEDTIME [facility] Last Admin: 02/14/24 20:31 Dose: 20 mg Olanzapine (Olanzapine 5 Mg Tablet) 5 mg PO Q4H PRN PRN Reason: agitation Last Admin: 02/14/24 13:20 Dose: 5 mg Omeprazole (Omeprazole 20 Mg Capsule.Dr) 20 mg PO BID@0700,2000 [facility] Last Admin: 02/15/24 06:14 Dose: Not Given Ondansetron HCl (Ondansetron Odt 4 Mg Tab.Rapdis) 4 mg TRANSLINGU Q8H PRN PRN Reason: Nausea Last Admin: 02/10/24 13:49 Dose: 4 mg Paliperidone (Paliperidone Er 6 Mg Tab.Er.24) 6 mg PO DAILY [facility] Last Admin: 02/15/24 10:52 Dose: 6 mg Propranolol HCl (Propranolol Hcl 10 Mg Tablet) 10 mg PO DAILY [facility]; Protocol Last Admin: 02/15/24 10:52 Dose: 10 mg Senna/Docusate Sodium (Sennosides/Docusate Sodium Tablet) 1 tab PO BID [facility] Last Admin: 02/15/24 10:53 Dose: 1 tab Trazodone HCl (Trazodone Hcl 50 Mg Tablet) 50 mg PO BEDTIME MRX1 PRN PRN Reason: Insomnia Last Admin: 02/14/24 20:31 Dose: 50 mg Allergies Allergies Allergy/AdvReac Type Severity Reaction Status Date / Time No Known Allergies Allergy Verified 01/20/24 17:37 Assessment & Plan Assessment & Plan (1) Bipolar I disorder with mood-congruent psychotic features: Status: Acute Code(s): F31.9 - Bipolar disorder, unspecified Plan at admission, pt was started on thorazine 200 QHS while zyprexa 20 QHS was DCed, reasons unclear. continue thorazine for now until better understood. pt does not appear lithium toxic and renal fxn WNL. will check lithium tomorrow night. restart/continue home medications otherwise. 01/21: Met with middleware systems architect present. Pt spontaneously laughing at times; appears to be responding to internal stimuli. Guarded. Responding with one words answers to questions. Pt reports feeling okay . denies SI/HI/VH/AH. keeping to self. 01/22: Pt laying in bed, staring at wall away from T/W and garbage pick up man. Pt not responding to questions despite numerous attempts. Pt refused medications and vital signs this morning. Continue to encourage medication compliance. 01/23: Met with middleware systems architect present. Pt laying in bed, staring at T/W and garbage pick up man but not responding to questions despite numerous attempts. Pt medication compliant this morning. observed eating breakfast. keeping to self. 01/24: no change in presentation. check lithium level tomorrow delmi. not consistently taking neuroleptics but IS consistently taking lithium. 01/25: selectively mute. per garbage pick up man collateral, he was with her when financial services met with her yesterday and she was fully verbal and collaborative. labs tonight. continue current mgmt. 01/26: mildly more communicative today. lithium level 0.36, BMP WNL. increase lithium dosing tonight. 01/27: more responsive and verbal today. continue current mgmt. 01/29/2024: lithium just increased 01/27/2024. No changes to current plan 01/29: schedule olanzapine bedtime 5mg 01/30: DC thorazine, increase zyprexa to 10 at HS. mild improvement in the past week. 01/31: UA not strongly indicative of UTI; will forego Tx at present. increase HS zydis to 15 mg. 02/01: mild improvements sustained. sedated in morning. continue current mgmt for now. check lithium level. 02/02: lithium level trending down despite dose increase. recheck lithium. otherwise continue current mgmt. continues improved. 02/03: mild improvement. switch lithium to liquid formulation due to lack of increase in serum level with increase in PO dosing. otherwise continue current mgmt. 02/04: Continue current regimen and plans 02/05: Continue current regimen and plans. Zofran ordered 02/06: Active on unit, observed responding to internal stimuli. middleware systems architect present. laughing inappropriately during conversation. Pt reports feeling sad and nervous ; pt did not elaborate. Pt reports suicidal ideation with no plan. she denies HI/VH/AH. [place] level to be drawn tomorrow morning. 02/07: Active on unit, observed responding to internal stimuli. middleware systems architect present. laughing inappropriately during conversation. Pt continues to report feeling sad and nervous ; but does not elaborate when asked to. mumbling throughout conversation. Pt denies SI/HI/AH. She reports having a visual hallucinations last night of a woman dressed in all white . Pt was observed walking out of shower room with [facility] front open and only wearing mesh hospital underwear. Staff escorted pt to room to put on clothing. [place] level 0.38 on 02/08/24. 02/08: middleware systems architect present. pt continues to laugh inappropriately during conversation. mumbling throughout conversation; when asked what is she mumbling, pt does not answer. Pt denies SI/HI/AH/VH. [place] level 0.38 on 02/08/24. [place] increased to 600mg PO BID 02/09: continues to laugh inappropriately throughout the day. mumbling throughout conversation; pt was observed stating, leave me alone while looking to the side of her where no one was standing. When asked if pt was experience hallucinations, pt became quiet, stood up and stated, I don't feel good. I have to go ; and left office. product development worker, Jillian, was able to speak to patient's mother, who reported pt has been stable on Depakote and Invega Sustenna in previous hospitalizations. Start: Depakote 250mg PO BID Invega 3mg PO daily Decrease: Zyprexa to 10mg PO bedtime 02/10: continue current tx plan. 02/11 increase olanzapine to 20mg po qhs and increase paliperidone to 6mg po qhs. 02/12 continue tx. 02/13: lithium 0.75, ammonia 44. increase VPA from 250 BID to 1000 QHS. increase PRNs for agitation. start ativan 2 mg QHS for insomnia (no sleep past 2 nights). T/C increase of invega. lithium at therapeutic level but pt appears more overtly psychotic than prior. increase omep to 20 BID for GERD. PT consult for LBP. 02/14: PT rec to F/U outpt. GERD complaint continues. tired in morning. move toward invega/VPA combo. decrease zyprexa from 20 to 10 at bedtime, move invega 6 PO to HS. will plan to increase VPA to 1500 mg tomorrow. Reason for continued inpatient stay Substantial Risk for: harm to self, inability to function and rapid decompensation Time Spent With Patient Time: Total time managing care of this patient today __35__ minutes.
[2024-02-15 22:15] VITALS: BP 123/74; PULSE 102; RESP 16; TEMP 36.4; O2SAT 96
[2024-02-15] MEDS: Divalproex Sodium ER 500 MG TAB.ER.24H 1000 MG PO (22:23)
[2024-02-15] MEDS: LORazepam 1 MG TABLET 2 MG PO (22:23)
[2024-02-15] MEDS: OLANZapine ODT 10 MG TAB.RAPDIS TRANSLINGU (22:24)
[2024-02-15] MEDS: Omeprazole 20 MG CAPSULE.DR PO (22:30)
[2024-02-16] MEDS: Acetaminophen 325 MG TABLET 650 MG PO (00:12)
[2024-02-16] MEDS: hydrOXYzine HCL 50 MG TABLET PO (01:03)
[2024-02-16] MEDS: LORazepam 1 MG TABLET PO (01:03)
[2024-02-16] MEDS: Magnesium Hydrox/Alum Hydrox 30 ML ORAL.SUSP PO (01:03)
[2024-02-16 08:45] VITALS: BP 133/78; PULSE 99; TEMP 36.2; O2SAT 97
[2024-02-16] MEDS: Sennosides/Docusate Sodium TABLET 1 TAB PO ×2 (08:46→22:17)
[2024-02-16] MEDS: Empagliflozin 10 MG TABLET PO (08:46)
[2024-02-16 08:47] VITALS: BP 133/78; PULSE 99
[2024-02-16] MEDS: Propranolol HCL 10 MG TABLET PO (08:47)
[2024-02-16] MEDS: Omeprazole 20 MG CAPSULE.DR PO ×2 (08:52→22:53)
--- NOTE | 2024-02-16 16:16 | HO.PSYCHPN ---
Subjective Subjective Date of Service: 02/16/24 Reason For Visit: Adjustment disorder Interim History: no change in presentation. mumbling, variably cooperative, c/o abd pain and attributing it to VPA. plan to increase VPA, decr zyprexa, incr invega discussed with pt. per staff, dep 3. no anx. labile. +RIS. had MOM, prune juice. elevated affect eves. Mental Status Exam Mental Status Exam Narrative: behavior is somewhat cooperative, guarded; dressed in casual attire; affect is non-labile; poor eye contact; Speech is normal rate, decr amount, not pressured, mumbles; disorganized; no SI/HI/AH/VH expressed. Diagnostics Vital Signs (24Hr): Vital Signs - 24 hr 02/15/24 22:15 02/16/24 08:45 02/16/24 08:47 Temperature 97.6 F 97.1 F Pulse Rate 102 H 99 99 Respiratory Rate 16 Blood Pressure 123/74 133/78 133/78 Pulse Oximetry 96 97 Oxygen Delivery Method Room Air Room Air BMI result Body Mass Index 29.7 Labs 02/08/24 08:06 Imaging Radiology Impressions: ITS Impressions KUB X-Ray 02/12/24 14:18 IMPRESSION: Moderate constipation. No acute process seen. Medications Medications Current Medications Acetaminophen (Acetaminophen 325 Mg Tablet) 650 mg PO Q6H PRN PRN Reason: Headache/Pain Mild Scale (1-3) Last Admin: 02/16/24 00:12 Dose: 650 mg Al Hydroxide/Mg Hydroxide (Magnesium Hydrox/Alum Hydrox 30 Ml Oral.Susp) 30 ml PO Q6H PRN PRN Reason: Heartburn/Nausea Last Admin: 02/16/24 01:03 Dose: 30 ml Benzocaine (Throat Lozenge, Medicated Lozenge) 1 lozenge MUCOUS MEM Q2H PRN PRN Reason: Sore Throat Last Admin: 02/12/24 21:57 Dose: 1 lozenge Divalproex Sodium (Divalproex Sodium Er 500 Mg Tab.Er.24h) 1,000 mg PO BEDTIME [facility] Last Admin: 02/15/24 22:23 Dose: 1,000 mg Empagliflozin (Empagliflozin 10 Mg Tablet) 10 mg PO DAILY [facility] Last Admin: 02/16/24 08:46 Dose: 10 mg Hydroxyzine HCl (Hydroxyzine Hcl 50 Mg Tablet) 50 mg PO Q6H PRN PRN Reason: Anxiety Last Admin: 02/16/24 01:03 Dose: 50 mg [place] Citrate ([place] Citrate Oral Anayeli 300 Mg (8 Meq)/5 Ml) 600 mg PO BID [facility] Last Admin: 02/16/24 08:47 Dose: 600 mg Lorazepam (Lorazepam 1 Mg Tablet) 1 mg PO Q4H PRN PRN Reason: agitation Last Admin: 02/16/24 01:03 Dose: 1 mg Lorazepam (Lorazepam 1 Mg Tablet) 2 mg PO BEDTIME [facility] Last Admin: 02/15/24 22:23 Dose: 2 mg Magnesium Hydroxide (Milk Of Magnesia 30 Ml Oral.Susp) 30 ml PO DAILY PRN PRN Reason: Constipation Last Admin: 02/15/24 11:04 Dose: 30 ml Nicotine (Nicotine 21 Mg Patch.Td24) 21 mg TRANSDERMA DAILY PRN PRN Reason: smoking cessation Last Admin: 02/15/24 10:56 Dose: 21 mg Nicotine Polacrilex (Nicotine Polacrilex 2 Mg Gum) 4 mg BUCCAL Q2H PRN PRN Reason: nicotine cravings Last Admin: 02/14/24 16:38 Dose: 2 mg Olanzapine (Olanzapine 5 Mg Tablet) 5 mg PO Q4H PRN PRN Reason: agitation Last Admin: 02/14/24 13:20 Dose: 5 mg Olanzapine (Olanzapine Odt 10 Mg Tab.Rapdis) 10 mg TRANSLINGU BEDTIME [facility] Last Admin: 02/15/24 22:24 Dose: 10 mg Omeprazole (Omeprazole 20 Mg Capsule.Dr) 20 mg PO BID@0700,2000 [facility] Last Admin: 02/16/24 08:52 Dose: 20 mg Ondansetron HCl (Ondansetron Odt 4 Mg Tab.Rapdis) 4 mg TRANSLINGU Q8H PRN PRN Reason: Nausea Last Admin: 02/10/24 13:49 Dose: 4 mg Paliperidone (Paliperidone Er 6 Mg Tab.Er.24) 6 mg PO BEDTIME [facility] Last Admin: 02/15/24 22:27 Dose: 6 mg Propranolol HCl (Propranolol Hcl 10 Mg Tablet) 10 mg PO DAILY [facility]; Protocol Last Admin: 02/16/24 08:47 Dose: 10 mg Senna/Docusate Sodium (Sennosides/Docusate Sodium Tablet) 1 tab PO BID [facility] Last Admin: 02/16/24 08:46 Dose: 1 tab Trazodone HCl (Trazodone Hcl 50 Mg Tablet) 50 mg PO BEDTIME MRX1 PRN PRN Reason: Insomnia Last Admin: 02/14/24 20:31 Dose: 50 mg Allergies Allergies Allergy/AdvReac Type Severity Reaction Status Date / Time No Known Allergies Allergy Verified 01/20/24 17:37 Assessment & Plan Assessment & Plan (1) Bipolar I disorder with mood-congruent psychotic features: Status: Acute Code(s): F31.9 - Bipolar disorder, unspecified Plan at admission, pt was started on thorazine 200 QHS while zyprexa 20 QHS was DCed, reasons unclear. continue thorazine for now until better understood. pt does not appear lithium toxic and renal fxn WNL. will check lithium tomorrow night. restart/continue home medications otherwise. 01/21: Met with tree loader meat present. Pt spontaneously laughing at times; appears to be responding to internal stimuli. Guarded. Responding with one words answers to questions. Pt reports feeling okay . denies SI/HI/VH/AH. keeping to self. 01/22: Pt laying in bed, staring at wall away from T/W and shop router. Pt not responding to questions despite numerous attempts. Pt refused medications and vital signs this morning. Continue to encourage medication compliance. 01/23: Met with tree loader meat present. Pt laying in bed, staring at T/W and shop router but not responding to questions despite numerous attempts. Pt medication compliant this morning. observed eating breakfast. keeping to self. 01/24: no change in presentation. check lithium level tomorrow delmi. not consistently taking neuroleptics but IS consistently taking lithium. 01/25: selectively mute. per shop router collateral, he was with her when financial services met with her yesterday and she was fully verbal and collaborative. labs tonight. continue current mgmt. 01/26: mildly more communicative today. lithium level 0.36, BMP WNL. increase lithium dosing tonight. 01/27: more responsive and verbal today. continue current mgmt. 01/29/2024: lithium just increased 01/27/2024. No changes to current plan 01/29: schedule olanzapine bedtime 5mg 01/30: DC thorazine, increase zyprexa to 10 at HS. mild improvement in the past week. 01/31: UA not strongly indicative of UTI; will forego Tx at present. increase HS zydis to 15 mg. 02/01: mild improvements sustained. sedated in morning. continue current mgmt for now. check lithium level. 02/02: lithium level trending down despite dose increase. recheck lithium. otherwise continue current mgmt. continues improved. 02/03: mild improvement. switch lithium to liquid formulation due to lack of increase in serum level with increase in PO dosing. otherwise continue current mgmt. 02/04: Continue current regimen and plans 02/05: Continue current regimen and plans. Zofran ordered 02/06: Active on unit, observed responding to internal stimuli. tree loader meat present. laughing inappropriately during conversation. Pt reports feeling sad and nervous ; pt did not elaborate. Pt reports suicidal ideation with no plan. she denies HI/VH/AH. [place] level to be drawn tomorrow morning. 02/07: Active on unit, observed responding to internal stimuli. tree loader meat present. laughing inappropriately during conversation. Pt continues to report feeling sad and nervous ; but does not elaborate when asked to. mumbling throughout conversation. Pt denies SI/HI/AH. She reports having a visual hallucinations last night of a woman dressed in all white . Pt was observed walking out of shower room with [facility] front open and only wearing mesh hospital underwear. Staff escorted pt to room to put on clothing. [place] level 0.38 on 02/08/24. 02/08: tree loader meat present. pt continues to laugh inappropriately during conversation. mumbling throughout conversation; when asked what is she mumbling, pt does not answer. Pt denies SI/HI/AH/VH. [place] level 0.38 on 02/08/24. [place] increased to 600mg PO BID 02/09: continues to laugh inappropriately throughout the day. mumbling throughout conversation; pt was observed stating, leave me alone while looking to the side of her where no one was standing. When asked if pt was experience hallucinations, pt became quiet, stood up and stated, I don't feel good. I have to go ; and left office. early childhood worker, Jillian, was able to speak to patient's mother, who reported pt has been stable on Depakote and Invega Sustenna in previous hospitalizations. Start: Depakote 250mg PO BID Invega 3mg PO daily Decrease: Zyprexa to 10mg PO bedtime 02/10: continue current tx plan. 02/11 increase olanzapine to 20mg po qhs and increase paliperidone to 6mg po qhs. 02/12 continue tx. 02/13: lithium 0.75, ammonia 44. increase VPA from 250 BID to 1000 QHS. increase PRNs for agitation. start ativan 2 mg QHS for insomnia (no sleep past 2 nights). T/C increase of invega. lithium at therapeutic level but pt appears more overtly psychotic than prior. increase omep to 20 BID for GERD. PT consult for LBP. 02/14: PT rec to F/U outpt. GERD complaint continues. tired in morning. move toward invega/VPA combo. decrease zyprexa from 20 to 10 at bedtime, move invega 6 PO to HS. will plan to increase VPA to 1500 mg tomorrow. 02/15: decr zyprexa to 5 at HS, incr invega to 9 QHS. incr VPA to 1500 QHS. otherwise continue current mgmt. Reason for continued inpatient stay Substantial Risk for: inability to function Time Spent With Patient Time: Total time managing care of this patient today __25__ minutes.
[2024-02-16 22:00] VITALS: BP 127/72; PULSE 87; RESP 16; TEMP 36.6; O2SAT 96
[2024-02-16] MEDS: LORazepam 1 MG TABLET 2 MG PO (22:16)
[2024-02-16] MEDS: Divalproex Sodium ER 500 MG TAB.ER.24H 1500 MG PO (22:17)
[2024-02-16] MEDS: OLANZapine ODT 10 MG TAB.RAPDIS 5 MG TRANSLINGU (22:17)
[2024-02-16] MEDS: Paliperidone ER 9 MG TAB.ER.24 PO (22:18)
[2024-02-17 07:00] VITALS: BMI 29.9
[2024-02-17 08:00] VITALS: BP 132/92; PULSE 119; RESP 18; TEMP 36.2; O2SAT 98
[2024-02-17] MEDS: Sennosides/Docusate Sodium TABLET 1 TAB PO ×2 (09:28→20:21)
[2024-02-17] MEDS: Empagliflozin 10 MG TABLET PO (09:28)
[2024-02-17] MEDS: Propranolol HCL 10 MG TABLET PO (09:28)
[2024-02-17] MEDS: Omeprazole 20 MG CAPSULE.DR PO ×2 (09:40→20:27)
--- NOTE | 2024-02-17 15:30 | P.PNPSI_ITS ---
Subjective Subjective Date of Service: 02/17/24 Reason For Visit: Adjustment disorder Interim History: initially quite animated and energetic, then substantial lassitude after demoralization. she expressed enthusiasm at the prospect of discharge home, but when she was informed this would not likely happen until sometime next week, she once again wilted, as she has appeared in recent days. informed of plans to continue to cross-taper invega and zyprexa. no other complaints or requests, although by the end of the interview communication was indeterminate due to pt's mumbling responses. Mental Status Exam Mental Status Exam Narrative: behavior is initially cooperative and enthusiastic, then guarded and phlegmatic; dressed in casual attire; affect is full range, normo-intense, mod-labile; variable eye contact; Speech is normal rate, amount. initially clear, later mumbles; organized, superficially; no SI/HI/AH/VH expressed. Diagnostics Vital Signs (24Hr): Vital Signs - 24 hr 02/16/24 22:00 02/17/24 08:00 Temperature 97.8 F 97.2 F Pulse Rate 87 119 H Respiratory Rate 16 18 Blood Pressure 127/72 132/92 H Pulse Oximetry 96 98 Oxygen Delivery Method Room Air Room Air BMI result Body Mass Index 29.9 Labs 02/08/24 08:06 Imaging Radiology Impressions: ITS Impressions KUB X-Ray 02/12/24 14:18 IMPRESSION: Moderate constipation. No acute process seen. Medications Medications Current Medications Acetaminophen (Acetaminophen 325 Mg Tablet) 650 mg PO Q6H PRN PRN Reason: Headache/Pain Mild Scale (1-3) Last Admin: 02/16/24 00:12 Dose: 650 mg Al Hydroxide/Mg Hydroxide (Magnesium Hydrox/Alum Hydrox 30 Ml Oral.Susp) 30 ml PO Q6H PRN PRN Reason: Heartburn/Nausea Last Admin: 02/16/24 01:03 Dose: 30 ml Benzocaine (Throat Lozenge, Medicated Lozenge) 1 lozenge MUCOUS MEM Q2H PRN PRN Reason: Sore Throat Last Admin: 02/12/24 21:57 Dose: 1 lozenge Divalproex Sodium (Divalproex Sodium Er 500 Mg Tab.Er.24h) 1,500 mg PO BEDTIME ALFRED Last Admin: 02/16/24 22:17 Dose: 1,500 mg Empagliflozin (Empagliflozin 10 Mg Tablet) 10 mg PO DAILY [facility] Last Admin: 02/17/24 09:28 Dose: 10 mg Hydroxyzine HCl (Hydroxyzine Hcl 50 Mg Tablet) 50 mg PO Q6H PRN PRN Reason: Anxiety Last Admin: 02/16/24 01:03 Dose: 50 mg [place] Citrate ([place] Citrate Oral Anayeli 300 Mg (8 Meq)/5 Ml) 600 mg PO BID [facility] Last Admin: 02/17/24 09:28 Dose: 600 mg Lorazepam (Lorazepam 1 Mg Tablet) 1 mg PO Q4H PRN PRN Reason: agitation Last Admin: 02/16/24 01:03 Dose: 1 mg Lorazepam (Lorazepam 1 Mg Tablet) 2 mg PO BEDTIME ALFRED Last Admin: 02/16/24 22:16 Dose: 2 mg Magnesium Hydroxide (Milk Of Magnesia 30 Ml Oral.Susp) 30 ml PO DAILY PRN PRN Reason: Constipation Last Admin: 02/15/24 11:04 Dose: 30 ml Nicotine (Nicotine 21 Mg Patch.Td24) 21 mg TRANSDERMA DAILY PRN PRN Reason: smoking cessation Last Admin: 02/15/24 10:56 Dose: 21 mg Nicotine Polacrilex (Nicotine Polacrilex 2 Mg Gum) 4 mg BUCCAL Q2H PRN PRN Reason: nicotine cravings Last Admin: 02/14/24 16:38 Dose: 2 mg Olanzapine (Olanzapine 5 Mg Tablet) 5 mg PO Q4H PRN PRN Reason: agitation Last Admin: 02/14/24 13:20 Dose: 5 mg Olanzapine (Olanzapine Odt 10 Mg Tab.Rapdis) 5 mg TRANSLINGU BEDTIME ALFRED Last Admin: 02/16/24 22:17 Dose: 5 mg Omeprazole (Omeprazole 20 Mg Capsule.Dr) 20 mg PO BID@0700,1999 [facility] Last Admin: 02/17/24 09:40 Dose: 20 mg Ondansetron HCl (Ondansetron Odt 4 Mg Tab.Rapdis) 4 mg TRANSLINGU Q8H PRN PRN Reason: Nausea Last Admin: 02/10/24 13:49 Dose: 4 mg Paliperidone (Paliperidone Er 9 Mg Tab.Er.24) 9 mg PO BEDTIME ALFRED Last Admin: 02/16/24 22:18 Dose: 9 mg Propranolol HCl (Propranolol Hcl 10 Mg Tablet) 10 mg PO DAILY ALFRED; Protocol Last Admin: 02/17/24 09:28 Dose: 10 mg Senna/Docusate Sodium (Sennosides/Docusate Sodium Tablet) 1 tab PO BID ALFRED Last Admin: 02/17/24 09:28 Dose: 1 tab Trazodone HCl (Trazodone Hcl 50 Mg Tablet) 50 mg PO BEDTIME MRX1 PRN PRN Reason: Insomnia Last Admin: 02/14/24 20:31 Dose: 50 mg Allergies Allergies Allergy/AdvReac Type Severity Reaction Status Date / Time No Known Allergies Allergy Verified 01/20/24 17:37 Assessment & Plan Assessment & Plan (1) Bipolar I disorder with mood-congruent psychotic features: Status: Acute Code(s): F31.9 - Bipolar disorder, unspecified Plan at admission, pt was started on thorazine 200 QHS while zyprexa 20 QHS was DCed, reasons unclear. continue thorazine for now until better understood. pt does not appear lithium toxic and renal fxn WNL. will check lithium tomorrow night. restart/continue home medications otherwise. 01/21: Met with parts interpreter present. Pt spontaneously laughing at times; appears to be responding to internal stimuli. Guarded. Responding with one words answers to questions. Pt reports feeling okay . denies SI/HI/VH/AH. keeping to self. 01/22: Pt laying in bed, staring at wall away from T/W and diplomatic interpreter/translator. Pt not responding to questions despite numerous attempts. Pt refused medications and vital signs this morning. Continue to encourage medication compliance. 01/23: Met with parts interpreter present. Pt laying in bed, staring at T/W and diplomatic interpreter/translator but not responding to questions despite numerous attempts. Pt medication compliant this morning. observed eating breakfast. keeping to self. 01/24: no change in presentation. check lithium level tomorrow delmi. not consistently taking neuroleptics but IS consistently taking lithium. 01/25: selectively mute. per diplomatic interpreter/translator collateral, he was with her when financial services met with her yesterday and she was fully verbal and collaborative. labs tonight. continue current mgmt. 01/26: mildly more communicative today. lithium level 0.36, BMP WNL. increase lithium dosing tonight. 01/27: more responsive and verbal today. continue current mgmt. 01/29/2024: lithium just increased 01/27/2024. No changes to current plan 01/29: schedule olanzapine bedtime 5mg 01/30: DC thorazine, increase zyprexa to 10 at HS. mild improvement in the past week. 01/31: UA not strongly indicative of UTI; will forego Tx at present. increase HS zydis to 15 mg. 02/01: mild improvements sustained. sedated in morning. continue current mgmt for now. check lithium level. 02/02: lithium level trending down despite dose increase. recheck lithium. otherwise continue current mgmt. continues improved. 02/03: mild improvement. switch lithium to liquid formulation due to lack of increase in serum level with increase in PO dosing. otherwise continue current mgmt. 02/04: Continue current regimen and plans 02/05: Continue current regimen and plans. Zofran ordered 02/06: Active on unit, observed responding to internal stimuli. parts interpreter present. laughing inappropriately during conversation. Pt reports feeling sad and nervous ; pt did not elaborate. Pt reports suicidal ideation with no plan. she denies HI/VH/AH. [place] level to be drawn tomorrow morning. 02/07: Active on unit, observed responding to internal stimuli. parts interpreter present. laughing inappropriately during conversation. Pt continues to report feeling sad and nervous ; but does not elaborate when asked to. mumbling throughout conversation. Pt denies SI/HI/AH. She reports having a visual hallucinations last night of a woman dressed in all white . Pt was observed walking out of shower room with [facility] front open and only wearing mesh hospital underwear. Staff escorted pt to room to put on clothing. [place] level 0.38 on 02/08/24. 02/08: parts interpreter present. pt continues to laugh inappropriately during conversation. mumbling throughout conversation; when asked what is she mumbling, pt does not answer. Pt denies SI/HI/AH/VH. [place] level 0.38 on 02/08/24. [place] increased to 600mg PO BID 02/09: continues to laugh inappropriately throughout the day. mumbling throughout conversation; pt was observed stating, leave me alone while looking to the side of her where no one was standing. When asked if pt was experience hallucinations, pt became quiet, stood up and stated, I don't feel good. I have to go ; and left office. bull gang worker, Jillian, was able to speak to patient's mother, who reported pt has been stable on Depakote and Invega Sustenna in previous hospitalizations. Start: Depakote 250mg PO BID Invega 3mg PO daily Decrease: Zyprexa to 10mg PO bedtime 02/10: continue current tx plan. 02/11 increase olanzapine to 20mg po qhs and increase paliperidone to 6mg po qhs. 02/12 continue tx. 02/13: lithium 0.75, ammonia 44. increase VPA from 250 BID to 1000 QHS. increase PRNs for agitation. start ativan 2 mg QHS for insomnia (no sleep past 2 nights). T/C increase of invega. lithium at therapeutic level but pt appears more overtly psychotic than prior. increase omep to 20 BID for GERD. PT consult for LBP. 02/14: PT rec to F/U outpt. GERD complaint continues. tired in morning. move toward invega/VPA combo. decrease zyprexa from 20 to 10 at bedtime, move invega 6 PO to HS. will plan to increase VPA to 1500 mg tomorrow. 02/15: decr zyprexa to 5 at HS, incr invega to 9 QHS. incr VPA to 1500 QHS. otherwise continue current mgmt. 02/16: DC zyprexa. continue invega 9 QHS and VPA 1500 QHS. period of animation today followed by torpor. trending improved. Reason for continued inpatient stay Substantial Risk for: inability to function and rapid decompensation Time Spent With Patient Time: Total time managing care of this patient today __25__ minutes.
[2024-02-17 20:15] VITALS: BP 139/94; PULSE 111; RESP 16; TEMP 36.2; O2SAT 98
[2024-02-17] MEDS: Paliperidone ER 9 MG TAB.ER.24 PO (20:20)
[2024-02-17] MEDS: LORazepam 1 MG TABLET 2 MG PO (20:20)
[2024-02-17] MEDS: Divalproex Sodium ER 500 MG TAB.ER.24H 1500 MG PO (20:21)
[2024-02-17] MEDS: traZODone HCL 50 MG TABLET PO (20:21)
[2024-02-18 07:05] VITALS: BP 133/84; PULSE 107; RESP 14; TEMP 36.6; O2SAT 99
[2024-02-18] MEDS: Acetaminophen 325 MG TABLET 650 MG PO ×3 (08:27→21:03)
[2024-02-18 08:28] VITALS: BP 133/84; PULSE 107
[2024-02-18] MEDS: Sennosides/Docusate Sodium TABLET 1 TAB PO ×2 (08:28→21:04)
[2024-02-18] MEDS: Propranolol HCL 10 MG TABLET PO (08:28)
[2024-02-18] MEDS: Empagliflozin 10 MG TABLET PO (08:28)
[2024-02-18] MEDS: Omeprazole 20 MG CAPSULE.DR PO ×2 (08:32→21:04)
[2024-02-18] MEDS: Nicotine Polacrilex 2 MG GUM 4 MG BUCCAL ×2 (09:27→20:30)
--- NOTE | 2024-02-18 14:51 | P.PNPSI_ITS ---
Subjective Subjective Date of Service: 02/18/24 Reason For Visit: Adjustment disorder Interim History: calm, cooperative, cogent. looking forward to going home. per staff, c/o VH at [facility]. +RIS. taking meds. sad missing family. inappropriate affect. euphoric. slept well. Mental Status Exam Mental Status Exam Narrative: behavior is cooperative and enthusiastic; dressed in casual attire; affect is full range, normo-intense, non-labile; good eye contact; Speech is normal rate, amount, clear; thoughts organized; no SI/HI/AH/VH expressed. Diagnostics Vital Signs (24Hr): Vital Signs - 24 hr 02/17/24 20:15 02/18/24 07:05 02/18/24 07:05 Temperature 97.2 F 97.8 F 97.8 F Pulse Rate 111 H 107 H 107 H Respiratory Rate 16 14 14 Blood Pressure 139/94 H 133/84 133/84 Pulse Oximetry 98 99 99 Oxygen Delivery Method Room Air Room Air Room Air 02/18/24 08:28 Temperature Pulse Rate 107 H Respiratory Rate Blood Pressure 133/84 Pulse Oximetry Oxygen Delivery Method BMI result Body Mass Index 29.9 Labs 02/08/24 08:06 Imaging Radiology Impressions: ITS Impressions KUB X-Ray 02/12/24 14:18 IMPRESSION: Moderate constipation. No acute process seen. Medications Medications Current Medications Acetaminophen (Acetaminophen 325 Mg Tablet) 650 mg PO Q6H PRN PRN Reason: Headache/Pain Mild Scale (1-3) Last Admin: 02/18/24 14:46 Dose: 650 mg Al Hydroxide/Mg Hydroxide (Magnesium Hydrox/Alum Hydrox 30 Ml Oral.Susp) 30 ml PO Q6H PRN PRN Reason: Heartburn/Nausea Last Admin: 02/16/24 01:03 Dose: 30 ml Benzocaine (Throat Lozenge, Medicated Lozenge) 1 lozenge MUCOUS MEM Q2H PRN PRN Reason: Sore Throat Last Admin: 02/12/24 21:57 Dose: 1 lozenge Divalproex Sodium (Divalproex Sodium Er 500 Mg Tab.Er.24h) 1,500 mg PO BEDTIME ALFRED Last Admin: 02/17/24 20:21 Dose: 1,500 mg Empagliflozin (Empagliflozin 10 Mg Tablet) 10 mg PO DAILY ALFRED Last Admin: 02/18/24 08:28 Dose: 10 mg Hydroxyzine HCl (Hydroxyzine Hcl 50 Mg Tablet) 50 mg PO Q6H PRN PRN Reason: Anxiety Last Admin: 02/16/24 01:03 Dose: 50 mg [place] Citrate ([place] Citrate Oral Anayeli 300 Mg (8 Meq)/5 Ml) 600 mg PO BID ALFRED Last Admin: 02/18/24 08:28 Dose: 600 mg Lorazepam (Lorazepam 1 Mg Tablet) 1 mg PO Q4H PRN PRN Reason: agitation Last Admin: 02/16/24 01:03 Dose: 1 mg Lorazepam (Lorazepam 1 Mg Tablet) 1 mg PO BEDTIME ALFRED Magnesium Hydroxide (Milk Of Magnesia 30 Ml Oral.Susp) 30 ml PO DAILY PRN PRN Reason: Constipation Last Admin: 02/15/24 11:04 Dose: 30 ml Nicotine (Nicotine 21 Mg Patch.Td24) 21 mg TRANSDERMA DAILY PRN PRN Reason: smoking cessation Last Admin: 02/15/24 10:56 Dose: 21 mg Nicotine Polacrilex (Nicotine Polacrilex 2 Mg Gum) 4 mg BUCCAL Q2H PRN PRN Reason: nicotine cravings Last Admin: 02/18/24 09:27 Dose: 4 mg Olanzapine (Olanzapine 5 Mg Tablet) 5 mg PO Q4H PRN PRN Reason: agitation Last Admin: 02/14/24 13:20 Dose: 5 mg Omeprazole (Omeprazole 20 Mg Capsule.Dr) 20 mg PO BID@0700,1999 ALFRED Last Admin: 02/18/24 08:32 Dose: 20 mg Ondansetron HCl (Ondansetron Odt 4 Mg Tab.Rapdis) 4 mg TRANSLINGU Q8H PRN PRN Reason: Nausea Last Admin: 02/10/24 13:49 Dose: 4 mg Paliperidone (Paliperidone Er 6 Mg Tab.Er.24) 12 mg PO BEDTIME ALFRED Propranolol HCl (Propranolol Hcl 10 Mg Tablet) 10 mg PO DAILY ALFRED; Protocol Last Admin: 02/18/24 08:28 Dose: 10 mg Senna/Docusate Sodium (Sennosides/Docusate Sodium Tablet) 1 tab PO BID ALFRED Last Admin: 02/18/24 08:28 Dose: 1 tab Trazodone HCl (Trazodone Hcl 50 Mg Tablet) 50 mg PO BEDTIME MRX1 PRN PRN Reason: Insomnia Last Admin: 02/17/24 20:21 Dose: 50 mg Allergies Allergies Allergy/AdvReac Type Severity Reaction Status Date / Time No Known Allergies Allergy Verified 01/20/24 17:37 Assessment & Plan Assessment & Plan (1) Bipolar I disorder with mood-congruent psychotic features: Status: Acute Code(s): F31.9 - Bipolar disorder, unspecified Plan at admission, pt was started on thorazine 200 QHS while zyprexa 20 QHS was DCed, reasons unclear. continue thorazine for now until better understood. pt does not appear lithium toxic and renal fxn WNL. will check lithium tomorrow night. restart/continue home medications otherwise. 01/21: Met with vocational rehabilitation administrator present. Pt spontaneously laughing at times; appears to be responding to internal stimuli. Guarded. Responding with one words answers to questions. Pt reports feeling okay . denies SI/HI/VH/AH. keeping to self. 01/22: Pt laying in bed, staring at wall away from T/W and manager home. Pt not responding to questions despite numerous attempts. Pt refused medications and vital signs this morning. Continue to encourage medication compliance. 01/23: Met with vocational rehabilitation administrator present. Pt laying in bed, staring at T/W and manager home but not responding to questions despite numerous attempts. Pt medication compliant this morning. observed eating breakfast. keeping to self. 01/24: no change in presentation. check lithium level tomorrow delmi. not consistently taking neuroleptics but IS consistently taking lithium. 01/25: selectively mute. per manager home collateral, he was with her when financial services met with her yesterday and she was fully verbal and collaborative. labs tonight. continue current mgmt. 01/26: mildly more communicative today. lithium level 0.36, BMP WNL. increase lithium dosing tonight. 01/27: more responsive and verbal today. continue current mgmt. 01/29/2024: lithium just increased 01/27/2024. No changes to current plan 01/29: schedule olanzapine bedtime 5mg 01/30: DC thorazine, increase zyprexa to 10 at HS. mild improvement in the past week. 01/31: UA not strongly indicative of UTI; will forego Tx at present. increase HS zydis to 15 mg. 02/01: mild improvements sustained. sedated in morning. continue current mgmt for now. check lithium level. 02/02: lithium level trending down despite dose increase. recheck lithium. otherwise continue current mgmt. continues improved. 02/03: mild improvement. switch lithium to liquid formulation due to lack of increase in serum level with increase in PO dosing. otherwise continue current mgmt. 02/04: Continue current regimen and plans 02/05: Continue current regimen and plans. Zofran ordered 02/06: Active on unit, observed responding to internal stimuli. vocational rehabilitation administrator present. laughing inappropriately during conversation. Pt reports feeling sad and nervous ; pt did not elaborate. Pt reports suicidal ideation with no plan. she denies HI/VH/AH. [place] level to be drawn tomorrow morning. 02/07: Active on unit, observed responding to internal stimuli. vocational rehabilitation administrator present. laughing inappropriately during conversation. Pt continues to report feeling sad and nervous ; but does not elaborate when asked to. mumbling throughout conversation. Pt denies SI/HI/AH. She reports having a visual hallucinations last night of a woman dressed in all white . Pt was observed walking [facility] and only wearing mesh hospital underwear. Staff escorted pt to room to put on clothing. [place] level 0.38 on 02/08/24. 02/08: vocational rehabilitation administrator present. pt continues to laugh inappropriately during conversation. mumbling throughout conversation; when asked what is she mumbling, pt does not answer. Pt denies SI/HI/AH/VH. [place] level 0.38 on 02/08/24. [place] increased to 600mg PO BID 02/09: continues to laugh inappropriately throughout the day. mumbling throughout conversation; pt was observed stating, leave me alone while looking to the side of her where no one was standing. When asked if pt was experience hallucinations, pt became quiet, stood up and stated, I don't feel good. I have to go ; and left office. insulation worker apprentice, Jillian, was able to speak to patient's mother, who reported pt has been stable on Depakote and Invega Sustenna in previous hospitalizations. Start: Depakote 250mg PO BID Invega 3mg PO daily Decrease: Zyprexa to 10mg PO bedtime 02/10: continue current tx plan. 8/3 increase olanzapine to 20mg po qhs and increase paliperidone to 6mg po qhs. 02/12 continue tx. 02/13: lithium 0.75, ammonia 44. increase VPA from 250 BID to 1000 QHS. increase PRNs for agitation. start ativan 2 mg QHS for insomnia (no sleep past 2 nights). T/C increase of invega. lithium at therapeutic level but pt appears more overtly psychotic than prior. increase omep to 20 BID for GERD. PT consult for LBP. 02/14: PT rec to F/U outpt. GERD complaint continues. tired in morning. move toward invega/VPA combo. decrease zyprexa from 20 to 10 at bedtime, move invega 6 PO to HS. will plan to increase VPA to 1500 mg tomorrow. 02/15: decr zyprexa to 5 at HS, incr invega to 9 QHS. incr VPA to 1500 QHS. otherwise continue current mgmt. 02/16: DC zyprexa. continue invega 9 QHS and VPA 1500 QHS. period of animation today followed by torpor. trending improved. 02/17: cogent, organized, pleasant, consistent today. slept well. decrease HS ativan to 1 mg from 2 mg. increase HS invega to 12 mg. plan to give IM early next week. tentatively planning for DC home late next week. Reason for continued inpatient stay Substantial Risk for: inability to function and rapid decompensation Time Spent With Patient Time: Total time managing care of this patient today __25__ minutes.
[2024-02-18] MEDS: LORazepam 1 MG TABLET PO ×2 (15:19→21:04)
[2024-02-18] MEDS: Throat Lozenge, Medicated LOZENGE 1 LOZENGE MUCOUS MEM (20:01)
[2024-02-18 20:12] LABS: Glucose, Whole Blood 204 mg/dL (60-115)
[2024-02-18 20:55] VITALS: BP 155/88; PULSE 113; RESP 18; TEMP 35.8; O2SAT 96
[2024-02-18] MEDS: Divalproex Sodium ER 500 MG TAB.ER.24H 1500 MG PO (21:02)
[2024-02-18] MEDS: Paliperidone ER 6 MG TAB.ER.24 12 MG PO (21:02)
[2024-02-18] MEDS: traZODone HCL 50 MG TABLET PO (21:04)
[2024-02-18] MEDS: Magnesium Hydrox/Alum Hydrox 30 ML ORAL.SUSP PO (22:09)
[2024-02-19] MEDS: LORazepam 1 MG TABLET PO ×2 (00:23→21:16)
[2024-02-19] MEDS: OLANZapine 5 MG TABLET PO (00:23)
[2024-02-19] MEDS: hydrOXYzine HCL 50 MG TABLET PO ×3 (00:23→22:22)
--- NOTE | 2024-02-19 00:40 | PC.NURSE ---
Kel was slight agitated and anxious on the overnight. Patient running in hallways. Patient given Zyprexa PO prn, Ativan PO prn,for agitation and Hydroxyzine PO prn for anxiety
[2024-02-19 08:00] VITALS: BP 122/80; PULSE 110; TEMP 36.3; O2SAT 100
[2024-02-19 08:31] VITALS: BP 122/80; PULSE 110
[2024-02-19] MEDS: Sennosides/Docusate Sodium TABLET 1 TAB PO ×2 (08:31→21:16)
[2024-02-19] MEDS: Empagliflozin 10 MG TABLET PO (08:31)
[2024-02-19] MEDS: Propranolol HCL 10 MG TABLET PO (08:31)
[2024-02-19] MEDS: Omeprazole 20 MG CAPSULE.DR PO ×2 (08:33→21:15)
[2024-02-19 09:05] LABS: Glucose, Whole Blood 126 mg/dL (60-115)
--- NOTE | 2024-02-19 10:31 | HO.PSYCHPN ---
Subjective Subjective Date of Service: 02/19/24 Reason For Visit: Adjustment disorder Interim History: Cooperative with care. Complaining of multiple somatic symptoms. Generalized pain generalized, throat, feet, abdomen. Vaginal itching. However, calm, cooperative, cogent. Some unrelated answers to questions even with cement fittings maker present. Remians looking forward to going home. per staff, c/o VH at [facility]. +RIS. taking meds. Review of Systems Review of Systems Left abdominal discomfort/pain Yes all other systems are reviewed and are negative and Unobtainable due to mental status Constitutional: Reports as per HPI Eyes: Reports as per HPI Reports as per HPI Cardiovascular: Reports as per HPI Respiratory: Reports as per HPI Gastrointestinal: Reports as per HPI Musculoskeletal: Reports as per HPI Skin/Breast: Reports as per HPI Reports as per HPI Psychiatric: Reports as per HPI Endocrine: Reports as per HPI Hematologic/Lymphatic: Reports as per HPI Allergic/Immunologic: Reports as per HPI Mental Status Exam Mental Status Exam Narrative: behavior is cooperative and enthusiastic; dressed in casual attire; affect is full range, normo-intense, non-labile; good eye contact; Speech is normal rate, amount, clear; thoughts organized; no SI/HI/AH/VH expressed. Diagnostics Vital Signs (24Hr): Vital Signs - 24 hr 02/18/24 20:55 02/19/24 08:31 Temperature 96.4 F L Pulse Rate 113 H 110 H Respiratory Rate 18 Blood Pressure 155/88 H 122/80 Pulse Oximetry 96 Oxygen Delivery Method Room Air BMI result Body Mass Index 29.9 Labs 02/08/24 08:06 Labs: Laboratory Results - last 48 hr 02/18/24 02/19/24 20:06 08:34 POC Glucose 204 H 126 H Imaging Radiology Impressions: ITS Impressions KUB X-Ray 02/12/24 14:18 IMPRESSION: Moderate constipation. No acute process seen. Medications Medications Current Medications Acetaminophen (Acetaminophen 325 Mg Tablet) 650 mg PO Q6H PRN PRN Reason: Headache/Pain Mild Scale (1-3) Last Admin: 02/18/24 21:03 Dose: 650 mg Al Hydroxide/Mg Hydroxide (Magnesium Hydrox/Alum Hydrox 30 Ml Oral.Susp) 30 ml PO Q6H PRN PRN Reason: Heartburn/Nausea Last Admin: 02/18/24 22:09 Dose: 30 ml Benzocaine (Throat Lozenge, Medicated Lozenge) 1 lozenge MUCOUS MEM Q2H PRN PRN Reason: Sore Throat Last Admin: 02/18/24 20:01 Dose: 1 lozenge Divalproex Sodium (Divalproex Sodium Er 500 Mg Tab.Er.24h) 1,500 mg PO BEDTIME [facility] Last Admin: 02/18/24 21:02 Dose: 1,500 mg Empagliflozin (Empagliflozin 10 Mg Tablet) 10 mg PO DAILY [facility] Last Admin: 02/19/24 08:31 Dose: 10 mg Hydroxyzine HCl (Hydroxyzine Hcl 50 Mg Tablet) 50 mg PO Q6H PRN PRN Reason: Anxiety Last Admin: 02/19/24 00:23 Dose: 50 mg Bystrom Citrate (Bystrom Citrate Oral Anayeli 300 Mg (8 Meq)/5 Ml) 600 mg PO BID [facility] Last Admin: 02/19/24 08:32 Dose: 600 mg Lorazepam (Lorazepam 1 Mg Tablet) 1 mg PO Q4H PRN PRN Reason: agitation Last Admin: 02/19/24 00:23 Dose: 1 mg Lorazepam (Lorazepam 1 Mg Tablet) 1 mg PO BEDTIME [facility] Last Admin: 02/18/24 21:04 Dose: 1 mg Magnesium Hydroxide (Milk Of Magnesia 30 Ml Oral.Susp) 30 ml PO DAILY PRN PRN Reason: Constipation Last Admin: 02/15/24 11:04 Dose: 30 ml Nicotine (Nicotine 21 Mg Patch.Td24) 21 mg TRANSDERMA DAILY PRN PRN Reason: smoking cessation Last Admin: 02/15/24 10:56 Dose: 21 mg Nicotine Polacrilex (Nicotine Polacrilex 2 Mg Gum) 4 mg BUCCAL Q2H PRN PRN Reason: nicotine cravings Last Admin: 02/18/24 20:30 Dose: 4 mg Olanzapine (Olanzapine 5 Mg Tablet) 5 mg PO Q4H PRN PRN Reason: agitation Last Admin: 02/19/24 00:23 Dose: 5 mg Omeprazole (Omeprazole 20 Mg Capsule.Dr) 20 mg PO BID@0700,1999 [facility] Last Admin: 02/19/24 08:33 Dose: 20 mg Ondansetron HCl (Ondansetron Odt 4 Mg Tab.Rapdis) 4 mg TRANSLINGU Q8H PRN PRN Reason: Nausea Last Admin: 08/01/24 13:49 Dose: 4 mg Paliperidone (Paliperidone Er 6 Mg Tab.Er.24) 12 mg PO BEDTIME [facility] Last Admin: 02/18/24 21:02 Dose: 12 mg Propranolol HCl (Propranolol Hcl 10 Mg Tablet) 10 mg PO DAILY [facility]; Protocol Last Admin: 02/19/24 08:31 Dose: 10 mg Senna/Docusate Sodium (Sennosides/Docusate Sodium Tablet) 1 tab PO BID [facility] Last Admin: 02/19/24 08:31 Dose: 1 tab Trazodone HCl (Trazodone Hcl 50 Mg Tablet) 50 mg PO BEDTIME MRX1 PRN PRN Reason: Insomnia Last Admin: 02/18/24 21:04 Dose: 50 mg Allergies Allergies Allergy/AdvReac Type Severity Reaction Status Date / Time No Known Allergies Allergy Verified 01/20/24 17:37 Assessment & Plan Assessment & Plan (1) Bipolar I disorder with mood-congruent psychotic features: Status: Acute Code(s): F31.9 - Bipolar disorder, unspecified Plan at admission, pt was started on thorazine 200 QHS while zyprexa 20 QHS was DCed, reasons unclear. continue thorazine for now until better understood. pt does not appear lithium toxic and renal fxn WNL. will check lithium tomorrow night. restart/continue home medications otherwise. 01/21: Met with marketing information analyst present. Pt spontaneously laughing at times; appears to be responding to internal stimuli. Guarded. Responding with one words answers to questions. Pt reports feeling okay . denies SI/HI/VH/AH. keeping to self. 01/22: Pt laying in bed, staring at wall away from T/W and cement fittings maker. Pt not responding to questions despite numerous attempts. Pt refused medications and vital signs this morning. Continue to encourage medication compliance. 01/23: Met with marketing information analyst present. Pt laying in bed, staring at T/W and cement fittings maker but not responding to questions despite numerous attempts. Pt medication compliant this morning. observed eating breakfast. keeping to self. 01/24: no change in presentation. check lithium level tomorrow delmi. not consistently taking neuroleptics but IS consistently taking lithium. 01/25: selectively mute. per cement fittings maker collateral, he was with her when financial services met with her yesterday and she was fully verbal and collaborative. labs tonight. continue current mgmt. 01/26: mildly more communicative today. lithium level 0.36, BMP WNL. increase lithium dosing tonight. 01/27: more responsive and verbal today. continue current mgmt. 01/29/2024: lithium just increased 01/27/2024. No changes to current plan 01/29: schedule olanzapine bedtime 5mg 01/30: DC thorazine, increase zyprexa to 10 at HS. mild improvement in the past week. 01/31: UA not strongly indicative of UTI; will forego Tx at present. increase HS zydis to 15 mg. 02/01: mild improvements sustained. sedated in morning. continue current mgmt for now. check lithium level. 02/02: lithium level trending down despite dose increase. recheck lithium. otherwise continue current mgmt. continues improved. 02/03: mild improvement. switch lithium to liquid formulation due to lack of increase in serum level with increase in PO dosing. otherwise continue current mgmt. 02/04: Continue current regimen and plans 02/05: Continue current regimen and plans. Chris ordered 02/06: Active on unit, observed responding to internal stimuli. marketing information analyst present. laughing inappropriately during conversation. Pt reports feeling sad and nervous ; pt did not elaborate. Pt reports suicidal ideation with no plan. she denies HI/VH/AH. Bystrom level to be drawn tomorrow morning. 02/07: Active on unit, observed responding to internal stimuli. marketing information analyst present. laughing inappropriately during conversation. Pt continues to report feeling sad and nervous ; but does not elaborate when asked to. mumbling throughout conversation. Pt denies SI/HI/AH. She reports having a visual hallucinations last night of a woman dressed in all white . Pt was observed walking out of shower room with [facility] front open and only wearing mesh hospital underwear. Staff escorted pt to room to put on clothing. Bystrom level 0.38 on 02/08/24. 02/08: marketing information analyst present. pt continues to laugh inappropriately during conversation. mumbling throughout conversation; when asked what is she mumbling, pt does not answer. Pt denies SI/HI/AH/VH. Bystrom level 0.38 on 02/08/24. Bystrom increased to 600mg PO BID 02/09: continues to laugh inappropriately throughout the day. mumbling throughout conversation; pt was observed stating, leave me alone while looking to the side of her where no one was standing. When asked if pt was experience hallucinations, pt became quiet, stood up and stated, I don't feel good. I have to go ; and left office. drywall metal stud worker, Jillian, was able to speak to patient's mother, who reported pt has been stable on Depakote and Invega Sustenna in previous hospitalizations. Start: Depakote 250mg PO BID Invega 3mg PO daily Decrease: Zyprexa to 10mg PO bedtime 02/10: continue current tx plan. 02/11 increase olanzapine to 20mg po qhs and increase paliperidone to 6mg po qhs. 02/12 continue tx. 02/13: lithium 0.75, ammonia 44. increase VPA from 250 BID to 1000 QHS. increase PRNs for agitation. start ativan 2 mg QHS for insomnia (no sleep past 2 nights). T/C increase of invega. lithium at therapeutic level but pt appears more overtly psychotic than prior. increase omep to 20 BID for GERD. PT consult for LBP. 02/14: PT rec to F/U outpt. GERD complaint continues. tired in morning. move toward invega/VPA combo. decrease zyprexa from 20 to 10 at bedtime, move invega 6 PO to HS. will plan to increase VPA to 1500 mg tomorrow. 02/15: decr zyprexa to 5 at HS, incr invega to 9 QHS. incr VPA to 1500 QHS. otherwise continue current mgmt. 02/16: DC zyprexa. continue invega 9 QHS and VPA 1500 QHS. period of animation today followed by torpor. trending improved. 02/17: cogent, organized, pleasant, consistent today. slept well. decrease HS ativan to 1 mg from 2 mg. increase HS invega to 12 mg. plan to give IM early next week. tentatively planning for DC home late next week. 02/18: continue current management and treatment plan. Reason for continued inpatient stay Substantial Risk for: inability to function and rapid decompensation Time Spent With Patient Time: Total time managing care of this patient today ____ minutes.
[2024-02-19] MEDS: Acetaminophen 325 MG TABLET 650 MG PO (12:29)
[2024-02-19 20:15] VITALS: BP 134/83; PULSE 113; RESP 18; TEMP 37.1; O2SAT 99
[2024-02-19 21:09] LABS: Glucose, Whole Blood 187 mg/dL (60-115)
[2024-02-19] MEDS: traZODone HCL 50 MG TABLET PO ×2 (21:15→22:22)
[2024-02-19] MEDS: Divalproex Sodium ER 500 MG TAB.ER.24H 1500 MG PO (21:15)
[2024-02-19] MEDS: Paliperidone ER 6 MG TAB.ER.24 12 MG PO (21:16)
[2024-02-20 09:25] VITALS: BP 121/56; PULSE 103; TEMP 36.8; O2SAT 96
[2024-02-20 09:27] VITALS: BP 121/56; PULSE 103
[2024-02-20] MEDS: Propranolol HCL 10 MG TABLET PO (09:27)
[2024-02-20] MEDS: Empagliflozin 10 MG TABLET PO (09:27)
[2024-02-20] MEDS: Sennosides/Docusate Sodium TABLET 1 TAB PO ×2 (09:28→21:05)
[2024-02-20] MEDS: Omeprazole 20 MG CAPSULE.DR PO ×2 (09:35→21:12)
[2024-02-20 09:36] LABS: Glucose, Whole Blood 136 mg/dL (60-115)
--- NOTE | 2024-02-20 10:21 | HO.PSYCHPN ---
Subjective Subjective Date of Service: 02/20/24 Reason For Visit: Adjustment disorder Interim History: Cooperative with care. Reports she is feeling well. However still disorganized. She asks this technical writer and editor if he knows anything about the house . She was referring to the plan for DC and where she will be going from here. Possibly responding to internal stimuli and at times appears distracted internally. taking meds. Appropriate self care. Visible on milieu. Review of Systems Review of Systems Left abdominal discomfort/pain Yes all other systems are reviewed and are negative and Unobtainable due to mental status Constitutional: Reports as per HPI Eyes: Reports as per HPI Reports as per HPI Cardiovascular: Reports as per HPI Respiratory: Reports as per HPI Gastrointestinal: Reports as per HPI Musculoskeletal: Reports as per HPI Skin/Breast: Reports as per HPI Reports as per HPI Psychiatric: Reports as per HPI Endocrine: Reports as per HPI Hematologic/Lymphatic: Reports as per HPI Allergic/Immunologic: Reports as per HPI Mental Status Exam Mental Status Exam Narrative: behavior is cooperative and enthusiastic; dressed in casual attire; affect is full range, normo-intense, non-labile; good eye contact; Speech is normal rate, amount, clear; thoughts organized; no SI/HI/AH/VH expressed. Diagnostics Vital Signs (24Hr): Vital Signs - 24 hr 02/19/24 20:15 02/20/24 09:25 02/20/24 09:27 Temperature 98.7 F 98.2 F Pulse Rate 113 H 103 H 103 H Respiratory Rate 18 Blood Pressure 134/83 121/56 L 121/56 L Pulse Oximetry 99 96 Oxygen Delivery Method Room Air Room Air BMI result Body Mass Index 29.9 Labs 02/08/24 08:06 Labs: Laboratory Results - last 48 hr 02/18/24 02/19/24 02/19/24 20:06 08:34 21:04 POC Glucose 204 H 126 H 187 H 02/20/24 09:26 POC Glucose 136 H Imaging Radiology Impressions: ITS Impressions KUB X-Ray 02/12/24 14:18 IMPRESSION: Moderate constipation. No acute process seen. Medications Medications Current Medications Acetaminophen (Acetaminophen 325 Mg Tablet) 650 mg PO Q6H PRN PRN Reason: Headache/Pain Mild Scale (1-3) Last Admin: 02/19/24 12:29 Dose: 650 mg Al Hydroxide/Mg Hydroxide (Magnesium Hydrox/Alum Hydrox 30 Ml Oral.Susp) 30 ml PO Q6H PRN PRN Reason: Heartburn/Nausea Last Admin: 02/18/24 22:09 Dose: 30 ml Benzocaine (Throat Lozenge, Medicated Lozenge) 1 lozenge MUCOUS MEM Q2H PRN PRN Reason: Sore Throat Last Admin: 02/18/24 20:01 Dose: 1 lozenge Divalproex Sodium (Divalproex Sodium Er 500 Mg Tab.Er.24h) 1,500 mg PO BEDTIME [facility] Last Admin: 02/19/24 21:15 Dose: 1,500 mg Empagliflozin (Empagliflozin 10 Mg Tablet) 10 mg PO DAILY [facility] Last Admin: 02/20/24 09:27 Dose: 10 mg Hydroxyzine HCl (Hydroxyzine Hcl 50 Mg Tablet) 50 mg PO Q6H PRN PRN Reason: Anxiety Last Admin: 02/19/24 22:22 Dose: 50 mg Amidon Citrate (Amidon Citrate Oral Anayeli 300 Mg (8 Meq)/5 Ml) 600 mg PO BID [facility] Last Admin: 02/20/24 09:27 Dose: 600 mg Lorazepam (Lorazepam 1 Mg Tablet) 1 mg PO Q4H PRN PRN Reason: agitation Last Admin: 02/19/24 00:23 Dose: 1 mg Lorazepam (Lorazepam 1 Mg Tablet) 1 mg PO BEDTIME [facility] Last Admin: 02/19/24 21:16 Dose: 1 mg Magnesium Hydroxide (Milk Of Magnesia 30 Ml Oral.Susp) 30 ml PO DAILY PRN PRN Reason: Constipation Last Admin: 02/15/24 11:04 Dose: 30 ml Nicotine (Nicotine 21 Mg Patch.Td24) 21 mg TRANSDERMA DAILY PRN PRN Reason: smoking cessation Last Admin: 02/15/24 10:56 Dose: 21 mg Nicotine Polacrilex (Nicotine Polacrilex 2 Mg Gum) 4 mg BUCCAL Q2H PRN PRN Reason: nicotine cravings Last Admin: 02/18/24 20:30 Dose: 4 mg Olanzapine (Olanzapine 5 Mg Tablet) 5 mg PO Q4H PRN PRN Reason: agitation Last Admin: 02/19/24 00:23 Dose: 5 mg Omeprazole (Omeprazole 20 Mg Capsule.Dr) 20 mg PO BID@0700,2000 [facility] Last Admin: 02/20/24 09:35 Dose: 20 mg Ondansetron HCl (Ondansetron Odt 4 Mg Tab.Rapdis) 4 mg TRANSLINGU Q8H PRN PRN Reason: Nausea Last Admin: 02/10/24 13:49 Dose: 4 mg Paliperidone (Paliperidone Er 6 Mg Tab.Er.24) 12 mg PO BEDTIME [facility] Last Admin: 02/19/24 21:16 Dose: 12 mg Propranolol HCl (Propranolol Hcl 10 Mg Tablet) 10 mg PO DAILY [facility]; Protocol Last Admin: 02/20/24 09:27 Dose: 10 mg Senna/Docusate Sodium (Sennosides/Docusate Sodium Tablet) 1 tab PO BID [facility] Last Admin: 02/20/24 09:28 Dose: 1 tab Trazodone HCl (Trazodone Hcl 50 Mg Tablet) 50 mg PO BEDTIME MRX1 PRN PRN Reason: Insomnia Last Admin: 02/19/24 22:22 Dose: 50 mg Allergies Allergies Allergy/AdvReac Type Severity Reaction Status Date / Time No Known Allergies Allergy Verified 01/20/24 17:37 Assessment & Plan Assessment & Plan (1) Bipolar I disorder with mood-congruent psychotic features: Status: Acute Code(s): F31.9 - Bipolar disorder, unspecified Plan at admission, pt was started on thorazine 200 QHS while zyprexa 20 QHS was DCed, reasons unclear. continue thorazine for now until better understood. pt does not appear lithium toxic and renal fxn WNL. will check lithium tomorrow night. restart/continue home medications otherwise. 01/21: Met with hardware engineer present. Pt spontaneously laughing at times; appears to be responding to internal stimuli. Guarded. Responding with one words answers to questions. Pt reports feeling okay . denies SI/HI/VH/AH. keeping to self. 01/22: Pt laying in bed, staring at wall away from T/W and magnetic testing technician. Pt not responding to questions despite numerous attempts. Pt refused medications and vital signs this morning. Continue to encourage medication compliance. 01/23: Met with hardware engineer present. Pt laying in bed, staring at T/W and magnetic testing technician but not responding to questions despite numerous attempts. Pt medication compliant this morning. observed eating breakfast. keeping to self. 01/24: no change in presentation. check lithium level tomorrow delmi. not consistently taking neuroleptics but IS consistently taking lithium. 01/25: selectively mute. per magnetic testing technician collateral, he was with her when financial services met with her yesterday and she was fully verbal and collaborative. labs tonight. continue current mgmt. 01/26: mildly more communicative today. lithium level 0.36, BMP WNL. increase lithium dosing tonight. 01/27: more responsive and verbal today. continue current mgmt. 01/29/2024: lithium just increased 01/27/2024. No changes to current plan 01/29: schedule olanzapine bedtime 5mg 01/30: DC thorazine, increase zyprexa to 10 at HS. mild improvement in the past week. 01/31: UA not strongly indicative of UTI; will forego Tx at present. increase HS zydis to 15 mg. 02/01: mild improvements sustained. sedated in morning. continue current mgmt for now. check lithium level. 02/02: lithium level trending down despite dose increase. recheck lithium. otherwise continue current mgmt. continues improved. 02/03: mild improvement. switch lithium to liquid formulation due to lack of increase in serum level with increase in PO dosing. otherwise continue current mgmt. 02/04: Continue current regimen and plans 02/05: Continue current regimen and plans. Zofran ordered 02/06: Active on unit, observed responding to internal stimuli. hardware engineer present. laughing inappropriately during conversation. Pt reports feeling sad and nervous ; pt did not elaborate. Pt reports suicidal ideation with no plan. she denies HI/VH/AH. Amidon level to be drawn tomorrow morning. 02/07: Active on unit, observed responding to internal stimuli. hardware engineer present. laughing inappropriately during conversation. Pt continues to report feeling sad and nervous ; but does not elaborate when asked to. mumbling throughout conversation. Pt denies SI/HI/AH. She reports having a visual hallucinations last night of a woman dressed in all white . Pt was observed walking out of shower room with [facility] front open and only wearing mesh hospital underwear. Staff escorted pt to room to put on clothing. Amidon level 0.38 on 02/08/24. 02/08: hardware engineer present. pt continues to laugh inappropriately during conversation. mumbling throughout conversation; when asked what is she mumbling, pt does not answer. Pt denies SI/HI/AH/VH. Amidon level 0.38 on 02/08/24. Amidon increased to 600mg PO BID 02/09: continues to laugh inappropriately throughout the day. mumbling throughout conversation; pt was observed stating, leave me alone while looking to the side of her where no one was standing. When asked if pt was experience hallucinations, pt became quiet, stood up and stated, I don't feel good. I have to go ; and left office. cattle care worker, Jillian, was able to speak to patient's mother, who reported pt has been stable on Depakote and Invega Sustenna in previous hospitalizations. Start: Depakote 250mg PO BID Invega 3mg PO daily Decrease: Zyprexa to 10mg PO bedtime 02/10: continue current tx plan. 02/11 increase olanzapine to 20mg po qhs and increase paliperidone to 6mg po qhs. 02/12 continue tx. 02/13: lithium 0.75, ammonia 44. increase VPA from 250 BID to 1000 QHS. increase PRNs for agitation. start ativan 2 mg QHS for insomnia (no sleep past 2 nights). T/C increase of invega. lithium at therapeutic level but pt appears more overtly psychotic than prior. increase omep to 20 BID for GERD. PT consult for LBP. 02/14: PT rec to F/U outpt. GERD complaint continues. tired in morning. move toward invega/VPA combo. decrease zyprexa from 20 to 10 at bedtime, move invega 6 PO to HS. will plan to increase VPA to 1500 mg tomorrow. 02/15: decr zyprexa to 5 at HS, incr invega to 9 QHS. incr VPA to 1500 QHS. otherwise continue current mgmt. 02/16: DC zyprexa. continue invega 9 QHS and VPA 1500 QHS. period of animation today followed by torpor. trending improved. 02/17: cogent, organized, pleasant, consistent today. slept well. decrease HS ativan to 1 mg from 2 mg. increase HS invega to 12 mg. plan to give IM early next week. tentatively planning for DC home late next week. 02/18: continue current management and treatment plan. 02/19: continue current management and treatment plan. Reason for continued inpatient stay Substantial Risk for: inability to function and rapid decompensation Time Spent With Patient Time: Total time managing care of this patient today ____ minutes.
[2024-02-20 19:50] VITALS: BP 141/86; PULSE 119; RESP 16; TEMP 36.3; O2SAT 100
[2024-02-20] MEDS: Nicotine Polacrilex 2 MG GUM 4 MG BUCCAL ×2 (20:09→22:13)
[2024-02-20] MEDS: LORazepam 1 MG TABLET PO (21:04)
[2024-02-20] MEDS: Divalproex Sodium ER 500 MG TAB.ER.24H 1500 MG PO (21:04)
[2024-02-20] MEDS: Paliperidone ER 6 MG TAB.ER.24 12 MG PO (21:04)
[2024-02-20] MEDS: Acetaminophen 325 MG TABLET 650 MG PO (21:12)
[2024-02-20 21:32] LABS: Glucose, Whole Blood 219 mg/dL (60-115)
[2024-02-20 23:12] VITALS: BP 144/92; PULSE 103
[2024-02-20] MEDS: Ondansetron ODT 4 MG TAB.RAPDIS TRANSLINGU (23:21)
[2024-02-20 23:22] LABS: Glucose, Whole Blood 135 mg/dL (60-115)
[2024-02-21] MEDS: Nicotine Polacrilex 2 MG GUM 4 MG BUCCAL ×2 (01:20→12:45)
[2024-02-21] MEDS: traZODone HCL 50 MG TABLET PO ×3 (01:42→22:05)
--- NOTE | 2024-02-21 06:03 | PC.NURSE ---
Difficulty falling asleep even after PRN Trazodone x2. Barely slept, however, pleasant, not disruptive, stayed in room till 6AM. At am pt said, she couldn't sleep because her roommate was snoring.
[2024-02-21 09:20] VITALS: BP 131/89; PULSE 98; RESP 16; TEMP 36.7; O2SAT 97
[2024-02-21] MEDS: Propranolol HCL 10 MG TABLET PO (09:22)
[2024-02-21] MEDS: Sennosides/Docusate Sodium TABLET 1 TAB PO ×2 (09:22→22:05)
[2024-02-21] MEDS: Empagliflozin 10 MG TABLET PO (09:23)
[2024-02-21] MEDS: Omeprazole 20 MG CAPSULE.DR PO ×2 (09:23→22:10)
[2024-02-21 09:42] LABS: Glucose, Whole Blood 189 mg/dL (60-115)
[2024-02-21 13:38] LABS: Creatinine Clr Calc Pharmacy 102.1; Estimated Glomerular Filt Rate > 60
[2024-02-21] MEDS: Paliperidone Palmitate 234 MG/1.5 ML SYRINGE IM (14:31)
--- NOTE | 2024-02-21 14:33 | PC.NURSE ---
Invega 234mg administered to R deltoid on this date. Pt tolerated procedure well.
--- NOTE | 2024-02-21 14:53 | P.PNPSI_ITS ---
Subjective Subjective Date of Service: 02/21/24 Reason For Visit: Adjustment disorder Interim History: calm, cooperative. improved vastly from admission. focussed on discharge. c/o GOLDBERG and stomach ache wednesday, poor sleep last night. discuss DC of PO invega and start of ERVIN. also check labs tonight. per staff, anxious, somatic. feeling better than prior. full range of affect. +meds. up until about 0600 this morning. Mental Status Exam Mental Status Exam Narrative: behavior is cooperative and enthusiastic; dressed in casual attire; affect is full range, normo-intense, non-labile; good eye contact; Speech is normal rate, amount, clear; thoughts organized; no SI/HI/AH/VH expressed. Diagnostics Vital Signs (24Hr): Vital Signs - 24 hr 02/20/24 19:50 02/20/24 23:12 02/21/24 09:20 Temperature 97.4 F 98.1 F Pulse Rate 119 H 103 H 98 Respiratory Rate 16 16 Blood Pressure 141/86 H 144/92 H 131/89 Pulse Oximetry 100 97 Oxygen Delivery Method Room Air BMI result Body Mass Index 29.9 Labs 02/21/24 13:10 Labs: Laboratory Results - last 48 hr 02/19/24 02/20/24 02/20/24 21:04 09:26 21:21 Creatinine Estim Creat Clear Calc Estimated GFR POC Glucose 187 H 136 H 219 H 02/20/24 02/21/24 02/21/24 23:17 09:38 13:10 Creatinine 0.85 Estim Creat Clear Calc 102.1 Estimated GFR > 60 POC Glucose 135 H 189 H Imaging Radiology Impressions: ITS Impressions KUB X-Ray 02/12/24 14:18 IMPRESSION: Moderate constipation. No acute process seen. Medications Medications Current Medications Acetaminophen (Acetaminophen 325 Mg Tablet) 650 mg PO Q6H PRN PRN Reason: Headache/Pain Mild Scale (1-3) Last Admin: 02/20/24 21:12 Dose: 650 mg Al Hydroxide/Mg Hydroxide (Magnesium Hydrox/Alum Hydrox 30 Ml Oral.Susp) 30 ml PO Q6H PRN PRN Reason: Heartburn/Nausea Last Admin: 02/18/24 22:09 Dose: 30 ml Benzocaine (Throat Lozenge, Medicated Lozenge) 1 lozenge MUCOUS MEM Q2H PRN PRN Reason: Sore Throat Last Admin: 02/18/24 20:01 Dose: 1 lozenge Divalproex Sodium (Divalproex Sodium Er 500 Mg Tab.Er.24h) 1,500 mg PO BEDTIME [facility] Last Admin: 02/20/24 21:04 Dose: 1,500 mg Empagliflozin (Empagliflozin 10 Mg Tablet) 10 mg PO DAILY [facility] Last Admin: 02/21/24 09:23 Dose: 10 mg Hydroxyzine HCl (Hydroxyzine Hcl 50 Mg Tablet) 50 mg PO Q6H PRN PRN Reason: Anxiety Last Admin: 02/19/24 22:22 Dose: 50 mg [place] Citrate ([place] Citrate Oral Anayeli 300 Mg (8 Meq)/5 Ml) 600 mg PO BID [facility] Last Admin: 02/21/24 09:23 Dose: 600 mg Lorazepam (Lorazepam 1 Mg Tablet) 1 mg PO Q4H PRN PRN Reason: agitation Last Admin: 02/19/24 00:23 Dose: 1 mg Lorazepam (Lorazepam 1 Mg Tablet) 1 mg PO BEDTIME [facility] Last Admin: 02/20/24 21:04 Dose: 1 mg Magnesium Hydroxide (Milk Of Magnesia 30 Ml Oral.Susp) 30 ml PO DAILY PRN PRN Reason: Constipation Last Admin: 02/15/24 11:04 Dose: 30 ml Nicotine (Nicotine 21 Mg Patch.Td24) 21 mg TRANSDERMA DAILY PRN PRN Reason: smoking cessation Last Admin: 02/15/24 10:56 Dose: 21 mg Nicotine Polacrilex (Nicotine Polacrilex 2 Mg Gum) 4 mg BUCCAL Q2H PRN PRN Reason: nicotine cravings Last Admin: 02/21/24 12:45 Dose: 4 mg Olanzapine (Olanzapine 5 Mg Tablet) 5 mg PO Q4H PRN PRN Reason: agitation Last Admin: 02/19/24 00:23 Dose: 5 mg Omeprazole (Omeprazole 20 Mg Capsule.Dr) 20 mg PO BID@0700,1999 [facility] Last Admin: 02/21/24 09:23 Dose: 20 mg Ondansetron HCl (Ondansetron Odt 4 Mg Tab.Rapdis) 4 mg TRANSLINGU Q8H PRN PRN Reason: Nausea Last Admin: 02/20/24 23:21 Dose: 4 mg Paliperidone Palmitate (Paliperidone Palmitate 156 Mg/Ml Syringe) 156 mg IM ONCE ONE Stop: 02/25/24 09:01 Propranolol HCl (Propranolol Hcl 10 Mg Tablet) 10 mg PO DAILY [facility]; Protocol Last Admin: 02/21/24 09:22 Dose: 10 mg Senna/Docusate Sodium (Sennosides/Docusate Sodium Tablet) 1 tab PO BID [facility] Last Admin: 02/21/24 09:22 Dose: 1 tab Trazodone HCl (Trazodone Hcl 50 Mg Tablet) 50 mg PO BEDTIME MRX1 PRN PRN Reason: Insomnia Last Admin: 02/21/24 02:52 Dose: 50 mg Allergies Allergies Allergy/AdvReac Type Severity Reaction Status Date / Time No Known Allergies Allergy Verified 01/20/24 17:37 Assessment & Plan Assessment & Plan (1) Bipolar I disorder with mood-congruent psychotic features: Status: Acute Code(s): F31.9 - Bipolar disorder, unspecified Plan at admission, pt was started on thorazine 200 QHS while zyprexa 20 QHS was DCed, reasons unclear. continue thorazine for now until better understood. pt does not appear lithium toxic and renal fxn WNL. will check lithium tomorrow night. restart/continue home medications otherwise. 01/21: Met with full time staff interpreter present. Pt spontaneously laughing at times; appears to be responding to internal stimuli. Guarded. Responding with one words answers to questions. Pt reports feeling okay . denies SI/HI/VH/AH. keeping to self. 01/22: Pt laying in bed, staring at wall away from T/W and environmental projects advisor. Pt not responding to questions despite numerous attempts. Pt refused medications and vital signs this morning. Continue to encourage medication compliance. 01/23: Met with full time staff interpreter present. Pt laying in bed, staring at T/W and environmental projects advisor but not responding to questions despite numerous attempts. Pt medication compliant this morning. observed eating breakfast. keeping to self. 01/24: no change in presentation. check lithium level tomorrow delmi. not consistently taking neuroleptics but IS consistently taking lithium. 01/25: selectively mute. per environmental projects advisor collateral, he was with her when financial services met with her yesterday and she was fully verbal and collaborative. labs tonight. continue current mgmt. 01/26: mildly more communicative today. lithium level 0.36, BMP WNL. increase lithium dosing tonight. 01/27: more responsive and verbal today. continue current mgmt. 01/29/2024: lithium just increased 01/27/2024. No changes to current plan 01/29: schedule olanzapine bedtime 5mg 01/30: DC thorazine, increase zyprexa to 10 at HS. mild improvement in the past week. 01/31: UA not strongly indicative of UTI; will forego Tx at present. increase HS zydis to 15 mg. 02/01: mild improvements sustained. sedated in morning. continue current mgmt for now. check lithium level. 02/02: lithium level trending down despite dose increase. recheck lithium. otherwise continue current mgmt. continues improved. 02/03: mild improvement. switch lithium to liquid formulation due to lack of increase in serum level with increase in PO dosing. otherwise continue current mgmt. 02/04: Continue current regimen and plans 02/05: Continue current regimen and plans. Zofran ordered 02/06: Active on unit, observed responding to internal stimuli. full time staff interpreter present. laughing inappropriately during conversation. Pt reports feeling sad and nervous ; pt did not elaborate. Pt reports suicidal ideation with no plan. she denies HI/VH/AH. [place] level to be drawn tomorrow morning. 02/07: Active on unit, observed responding to internal stimuli. full time staff interpreter present. laughing inappropriately during conversation. Pt continues to report feeling sad and nervous ; but does not elaborate when asked to. mumbling throughout conversation. Pt denies SI/HI/AH. She reports having a visual hallucinations last night of a woman dressed in all white . Pt was observed walking out of shower room with [facility] front open and only wearing mesh hospital underwear. Staff escorted pt to room to put on clothing. [place] level 0.38 on 02/08/24. 02/08: full time staff interpreter present. pt continues to laugh inappropriately during conversation. mumbling throughout conversation; when asked what is she mumbling, pt does not answer. Pt denies SI/HI/AH/VH. [place] level 0.38 on 02/08/24. [place] increased to 600mg PO BID 02/09: continues to laugh inappropriately throughout the day. mumbling throughout conversation; pt was observed stating, leave me alone while looking to the side of her where no one was standing. When asked if pt was experience hallucinations, pt became quiet, stood up and stated, I don't feel good. I have to go ; and left office. habilitation worker, Jillian, was able to speak to patient's mother, who reported pt has been stable on Depakote and Invega Sustenna in previous hospitalizations. Start: Depakote 250mg PO BID Invega 3mg PO daily Decrease: Zyprexa to 10mg PO bedtime 02/10: continue current tx plan. 02/11 increase olanzapine to 20mg po qhs and increase paliperidone to 6mg po qhs. 02/12 continue tx. 02/13: lithium 0.75, ammonia 44. increase VPA from 250 BID to 1000 QHS. increase PRNs for agitation. start ativan 2 mg QHS for insomnia (no sleep past 2 nights). T/C increase of invega. lithium at therapeutic level but pt appears more overtly psychotic than prior. increase omep to 20 BID for GERD. PT consult for LBP. 02/14: PT rec to F/U outpt. GERD complaint continues. tired in morning. move toward invega/VPA combo. decrease zyprexa from 20 to 10 at bedtime, move invega 6 PO to HS. will plan to increase VPA to 1500 mg tomorrow. 02/15: decr zyprexa to 5 at HS, incr invega to 9 QHS. incr VPA to 1500 QHS. otherwise continue current mgmt. 02/16: DC zyprexa. continue invega 9 QHS and VPA 1500 QHS. period of animation today followed by torpor. trending improved. 02/17: cogent, organized, pleasant, consistent today. slept well. decrease HS ativan to 1 mg from 2 mg. increase HS invega to 12 mg. plan to give IM early next week. tentatively planning for DC home late next week. 02/18: continue current management and treatment plan. 02/19: continue current management and treatment plan. 02/20: DC PO invega, start ERVIN 234 mg today. check labs tonight. planning for discharge home later this week. Reason for continued inpatient stay Substantial Risk for: inability to function and rapid decompensation Time Spent With Patient Time: Total time managing care of this patient today _35___ minutes.
[2024-02-21 20:44] LABS: Glucose, Whole Blood 150 mg/dL (60-115)
[2024-02-21 22:00] VITALS: BP 122/78; PULSE 112; RESP 16; TEMP 37.2; O2SAT 97
[2024-02-21] MEDS: LORazepam 1 MG TABLET PO (22:04)
[2024-02-21] MEDS: Divalproex Sodium ER 500 MG TAB.ER.24H 1500 MG PO (22:04)
[2024-02-21] MEDS: Acetaminophen 325 MG TABLET 650 MG PO (22:04)
[2024-02-21] MEDS: hydrOXYzine HCL 50 MG TABLET PO (22:05)
[2024-02-22] MEDS: traZODone HCL 50 MG TABLET PO ×2 (00:26→21:25)
[2024-02-22] MEDS: OLANZapine 5 MG TABLET PO (00:26)
[2024-02-22 08:43] LABS: Glucose, Whole Blood 145 mg/dL (60-115)
[2024-02-22 09:10] VITALS: BP 106/58; PULSE 79
[2024-02-22] MEDS: Propranolol HCL 10 MG TABLET PO (09:10)
[2024-02-22 09:15] VITALS: BP 106/58; PULSE 79; RESP 16; TEMP 37.4; O2SAT 98
[2024-02-22] MEDS: Omeprazole 20 MG CAPSULE.DR PO ×2 (09:16→20:32)
[2024-02-22] MEDS: Empagliflozin 10 MG TABLET PO (09:16)
--- NOTE | 2024-02-22 15:17 | P.PNPSI_ITS ---
Subjective Subjective Date of Service: 02/22/24 Reason For Visit: Adjustment disorder Interim History: continues much improved. planning to discharge home on wednesday. informed of labs re-draw tonight. c/o painful elimation, senna/docusate dosing reduced to once daily. also c/o stomach pain with HS meds, informed ativan DCed. per staff, cheerful, visible. +RIS, laughing to self. less labile and somatic. got invega IM yesterday. slept 7 hours. Mental Status Exam Mental Status Exam Narrative: behavior is cooperative and enthusiastic; dressed in casual attire; affect is full range, normo-intense, non-labile; good eye contact; Speech is normal rate, amount, clear; thoughts organized; no SI/HI/AH/VH expressed. Diagnostics Vital Signs (24Hr): Vital Signs - 24 hr 02/21/24 22:00 02/22/24 09:10 02/22/24 09:15 Temperature 98.9 F 99.3 F Pulse Rate 112 H 79 79 Respiratory Rate 16 16 Blood Pressure 122/78 106/58 L 106/58 L Pulse Oximetry 97 98 Oxygen Delivery Method Room Air Room Air BMI result Body Mass Index 29.9 Labs 02/21/24 13:10 Labs: Laboratory Results - last 48 hr 02/20/24 02/20/24 02/21/24 21:21 23:17 09:38 Creatinine Estim Creat Clear Calc Estimated GFR POC Glucose 219 H 135 H 189 H 02/21/24 02/21/24 02/22/24 13:10 20:37 08:36 Creatinine 0.85 Estim Creat Clear Calc 102.1 Estimated GFR > 60 POC Glucose 150 H 145 H Imaging Radiology Impressions: ITS Impressions KUB X-Ray 02/12/24 14:18 IMPRESSION: Moderate constipation. No acute process seen. Medications Medications Current Medications Acetaminophen (Acetaminophen 325 Mg Tablet) 650 mg PO Q6H PRN PRN Reason: Headache/Pain Mild Scale (1-3) Last Admin: 02/21/24 22:04 Dose: 650 mg Al Hydroxide/Mg Hydroxide (Magnesium Hydrox/Alum Hydrox 30 Ml Oral.Susp) 30 ml PO Q6H PRN PRN Reason: Heartburn/Nausea Last Admin: 02/18/24 22:09 Dose: 30 ml Benzocaine (Throat Lozenge, Medicated Lozenge) 1 lozenge MUCOUS MEM Q2H PRN PRN Reason: Sore Throat Last Admin: 02/18/24 20:01 Dose: 1 lozenge Divalproex Sodium (Divalproex Sodium Er 500 Mg Tab.Er.24h) 1,500 mg PO BEDTIME [facility] 234 BEDS AT [facility] Last Admin: 02/21/24 22:04 Dose: 1,500 mg Empagliflozin (Empagliflozin 10 Mg Tablet) 10 mg PO DAILY COUNTS INCLUDE 234 BEDS AT [facility] Last Admin: 02/22/24 09:16 Dose: 10 mg Hydroxyzine HCl (Hydroxyzine Hcl 50 Mg Tablet) 50 mg PO Q6H PRN PRN Reason: Anxiety Last Admin: 02/21/24 22:05 Dose: 50 mg [place] Citrate ([place] Citrate Oral Anayeli 300 Mg (8 Meq)/5 Ml) 600 mg PO BID COUNTS INCLUDE 234 BEDS AT THE [facility] Last Admin: 02/22/24 09:10 Dose: 600 mg Magnesium Hydroxide (Milk Of Magnesia 30 Ml Oral.Susp) 30 ml PO DAILY PRN PRN Reason: Constipation Last Admin: 02/15/24 11:04 Dose: 30 ml Nicotine (Nicotine 21 Mg Patch.Td24) 21 mg TRANSDERMA DAILY PRN PRN Reason: smoking cessation Last Admin: 02/15/24 10:56 Dose: 21 mg Nicotine Polacrilex (Nicotine Polacrilex 2 Mg Gum) 4 mg BUCCAL Q2H PRN PRN Reason: nicotine cravings Last Admin: 02/21/24 12:45 Dose: 4 mg Olanzapine (Olanzapine 5 Mg Tablet) 5 mg PO Q4H PRN PRN Reason: agitation Last Admin: 02/22/24 00:26 Dose: 5 mg Omeprazole (Omeprazole 20 Mg Capsule.Dr) 20 mg PO BID@0700,1999 COUNTS INCLUDE 234 BEDS AT [facility] Last Admin: 02/22/24 09:16 Dose: 20 mg Ondansetron HCl (Ondansetron Odt 4 Mg Tab.Rapdis) 4 mg TRANSLINGU Q8H PRN PRN Reason: Nausea Last Admin: 02/20/24 23:21 Dose: 4 mg Paliperidone Palmitate (Paliperidone Palmitate 156 Mg/Ml Syringe) 156 mg IM ONCE ONE Stop: 02/25/24 09:01 Propranolol HCl (Propranolol Hcl 10 Mg Tablet) 10 mg PO DAILY COUNTS INCLUDE 234 BEDS AT [facility]; Protocol Last Admin: 02/22/24 09:10 Dose: 10 mg Senna/Docusate Sodium (Sennosides/Docusate Sodium Tablet) 1 tab PO BEDTIME [facility] Trazodone HCl (Trazodone Hcl 50 Mg Tablet) 50 mg PO BEDTIME MRX1 PRN PRN Reason: Insomnia Last Admin: 02/22/24 00:26 Dose: 50 mg Allergies Allergies Allergy/AdvReac Type Severity Reaction Status Date / Time No Known Allergies Allergy Verified 01/20/24 17:37 Assessment & Plan Assessment & Plan (1) Bipolar I disorder with mood-congruent psychotic features: Status: Acute Code(s): F31.9 - Bipolar disorder, unspecified Plan at admission, pt was started on thorazine 200 QHS while zyprexa 20 QHS was DCed, reasons unclear. continue thorazine for now until better understood. pt does not appear lithium toxic and renal fxn WNL. will check lithium tomorrow night. restart/continue home medications otherwise. 01/21: Met with court interpreter present. Pt spontaneously laughing at times; appears to be responding to internal stimuli. Guarded. Responding with one words answers to questions. Pt reports feeling okay . denies SI/HI/VH/AH. keeping to self. 01/22: Pt laying in bed, staring at wall away from T/W and official court interpreter. Pt not responding to questions despite numerous attempts. Pt refused medications and vital signs this morning. Continue to encourage medication compliance. 01/23: Met with court interpreter present. Pt laying in bed, staring at T/W and official court interpreter but not responding to questions despite numerous attempts. Pt medication compliant this morning. observed eating breakfast. keeping to self. 01/24: no change in presentation. check lithium level tomorrow delmi. not consistently taking neuroleptics but IS consistently taking lithium. 01/25: selectively mute. per official court interpreter collateral, he was with her when financial services met with her yesterday and she was fully verbal and collaborative. labs tonight. continue current mgmt. 01/26: mildly more communicative today. lithium level 0.36, BMP WNL. increase lithium dosing tonight. 01/27: more responsive and verbal today. continue current mgmt. 01/29/2024: lithium just increased 01/27/2024. No changes to current plan 01/29: schedule olanzapine bedtime 5mg 01/30: DC thorazine, increase zyprexa to 10 at HS. mild improvement in the past week. 01/31: UA not strongly indicative of UTI; will forego Tx at present. increase HS zydis to 15 mg. 02/01: mild improvements sustained. sedated in morning. continue current mgmt for now. check lithium level. 02/02: lithium level trending down despite dose increase. recheck lithium. otherwise continue current mgmt. continues improved. 02/03: mild improvement. switch lithium to liquid formulation due to lack of increase in serum level with increase in PO dosing. otherwise continue current mgmt. 02/04: Continue current regimen and plans 02/05: Continue current regimen and plans. Zofran ordered 02/06: Active on unit, observed responding to internal stimuli. court interpreter present. laughing inappropriately during conversation. Pt reports feeling sad and nervous ; pt did not elaborate. Pt reports suicidal ideation with no plan. she denies HI/VH/AH. [place] level to be drawn tomorrow morning. 02/07: Active on unit, observed responding to internal stimuli. court interpreter present. laughing inappropriately during conversation. Pt continues to report feeling sad and nervous ; but does not elaborate when asked to. mumbling throughout conversation. Pt denies SI/HI/AH. She reports having a visual hallucinations last night of a woman dressed in all white . Pt was observed walking out of shower room with [facility] front open and only wearing mesh hospital underwear. Staff escorted pt to room to put on clothing. [place] level 0.38 on 02/08/24. 02/08: court interpreter present. pt continues to laugh inappropriately during conversation. mumbling throughout conversation; when asked what is she mumbling, pt does not answer. Pt denies SI/HI/AH/VH. [place] level 0.38 on 02/08/24. [place] increased to 600mg PO BID 02/09: continues to laugh inappropriately throughout the day. mumbling throughout conversation; pt was observed stating, leave me alone while looking to the side of her where no one was standing. When asked if pt was experience hallucinations, pt became quiet, stood up and stated, I don't feel good. I have to go ; and left office. licensed master social worker, Jillian, was able to speak to patient's mother, who reported pt has been stable on Depakote and Invega Sustenna in previous hospitalizations. Start: Depakote 250mg PO BID Invega 3mg PO daily Decrease: Zyprexa to 10mg PO bedtime 02/10: continue current tx plan. 02/11 increase olanzapine to 20mg po qhs and increase paliperidone to 6mg po qhs. 02/12 continue tx. 02/13: lithium 0.75, ammonia 44. increase VPA from 250 BID to 1000 QHS. increase PRNs for agitation. start ativan 2 mg QHS for insomnia (no sleep past 2 nights). T/C increase of invega. lithium at therapeutic level but pt appears more overtly psychotic than prior. increase omep to 20 BID for GERD. PT consult for LBP. 02/14: PT rec to F/U outpt. GERD complaint continues. tired in morning. move toward invega/VPA combo. decrease zyprexa from 20 to 10 at bedtime, move invega 6 PO to HS. will plan to increase VPA to 1500 mg tomorrow. 02/15: decr zyprexa to 5 at HS, incr invega to 9 QHS. incr VPA to 1500 QHS. otherwise continue current mgmt. 02/16: DC zyprexa. continue invega 9 QHS and VPA 1500 QHS. period of animation today followed by torpor. trending improved. 02/17: cogent, organized, pleasant, consistent today. slept well. decrease HS ativan to 1 mg from 2 mg. increase HS invega to 12 mg. plan to give IM early next week. tentatively planning for DC home late next week. 02/18: continue current management and treatment plan. 02/19: continue current management and treatment plan. 02/20: DC PO invega, start ERVIN 234 mg today. check labs tonight. planning for discharge home later this week. 02/21: continues much improved. will get second dose of invega, 156, on wednesday prior to discharge. decrease bowel regimen to once daily due to c/o painful stools. labs were not drawn last night and were re-ordered for tonight. Reason for continued inpatient stay Substantial Risk for: inability to function and rapid decompensation Time Spent With Patient Time: Total time managing care of this patient today __35__ minutes.
[2024-02-22] MEDS: Nicotine Polacrilex 2 MG GUM 4 MG BUCCAL ×3 (15:44→21:25)
[2024-02-22] MEDS: Acetaminophen 325 MG TABLET 650 MG PO (15:58)
[2024-02-22] MEDS: Magnesium Hydrox/Alum Hydrox 30 ML ORAL.SUSP PO (16:00)
[2024-02-22 20:20] VITALS: BP 138/78; PULSE 110; RESP 18; TEMP 36.9; O2SAT 97
[2024-02-22 20:34] LABS: Ammonia 49 umol/L (13-55)
[2024-02-22 20:45] LABS: Glucose, Whole Blood 173 mg/dL (60-115)
[2024-02-22 20:46] LABS: Valproate 56.2 mcg/mL (50.0-100.0)
[2024-02-22 20:48] LABS: Alanine Aminotransferase 18 U/L (0-31); Albumin Level 4.2 g/dL (3.5-5.0); Alkaline Phosphatase 141 U/L (39-117); Anion Gap 11 (12-20); Aspartate Amino Transferase 14 U/L (5-31); Bilirubin Direct < 0.2 mg/dL (0.0-0.5); Bilirubin Total 0.2 mg/dL (0.0-1.0); Blood Urea Nitrogen 15 mg/dL (9-16); Calcium 9.3 mg/dL (8.4-10.2); Carbon Dioxide 26 mmol/L (22-29); Chloride 106 mmol/L (96-108); Creatinine Clr Calc Pharmacy 123.9; Estimated Glomerular Filt Rate > 60; Glucose Random 138 mg/dL (60-115); Potassium 4.1 mmol/L (3.3-5.1); Sodium 139 mmol/L (135-145); Total Protein 7.8 g/dL (6.5-8.0)
[2024-02-22] MEDS: Sennosides/Docusate Sodium TABLET 1 TAB PO (21:24)
[2024-02-22] MEDS: Divalproex Sodium ER 500 MG TAB.ER.24H 1500 MG PO (21:24)
[2024-02-22] MEDS: hydrOXYzine HCL 50 MG TABLET PO (21:25)
[2024-02-22] MEDS: Ondansetron ODT 4 MG TAB.RAPDIS TRANSLINGU (21:25)
[2024-02-23] MEDS: traZODone HCL 50 MG TABLET PO ×2 (00:33→22:30)
[2024-02-23] MEDS: OLANZapine 5 MG TABLET PO (00:33)
[2024-02-23] MEDS: Nicotine Polacrilex 2 MG GUM 4 MG BUCCAL ×2 (00:35→20:41)
[2024-02-23 07:50] VITALS: BP 106/57; BP 106/87; PULSE 86; RESP 14; TEMP 36.4; O2SAT 96
[2024-02-23 08:46] LABS: Glucose, Whole Blood 144 mg/dL (60-115)
[2024-02-23 08:53] VITALS: BP 106/57; PULSE 86
[2024-02-23] MEDS: Empagliflozin 10 MG TABLET PO (08:53)
[2024-02-23] MEDS: Omeprazole 20 MG CAPSULE.DR PO ×2 (08:53→20:59)
[2024-02-23] MEDS: Propranolol HCL 10 MG TABLET PO (08:53)
--- NOTE | 2024-02-23 15:38 | P.PNPSI_ITS ---
Subjective Subjective Date of Service: 02/23/24 Reason For Visit: Adjustment disorder Interim History: sleepy. rousable. pleasant. planning to discharge wednesday. per staff, denies dep/anx/SI/HI/AVH. taking meds. VPA 56.2. lithuim 0.3. slept 6-7 hours overnight. Mental Status Exam Mental Status Exam Narrative: behavior is cooperative and calm; dressed in casual attire; affect is full range, normo-intense, non-labile; good eye contact; Speech is normal rate, amount, clear; thoughts organized; mood euthymic; no SI/HI/AH/VH expressed. Diagnostics Vital Signs (24Hr): Vital Signs - 24 hr 02/22/24 20:20 02/23/24 07:50 02/23/24 07:50 Temperature 98.5 F 97.6 F 97.6 F Pulse Rate 110 H 86 86 Respiratory Rate 18 14 14 Blood Pressure 138/78 106/57 L 106/87 Pulse Oximetry 97 96 96 Oxygen Delivery Method Room Air Room Air Room Air 02/23/24 08:53 Temperature Pulse Rate 86 Respiratory Rate Blood Pressure 106/57 L Pulse Oximetry Oxygen Delivery Method BMI result Body Mass Index 29.9 Labs 02/22/24 20:18 Labs: Laboratory Results - last 48 hr 02/21/24 02/22/24 02/22/24 20:37 08:36 20:17 Sodium Potassium Chloride Carbon Dioxide Anion Gap BUN Creatinine Estim Creat Clear Calc Estimated GFR POC Glucose 150 H 145 H Random Glucose Calcium Total Bilirubin Direct Bilirubin AST ALT Alkaline Phosphatase Ammonia 49 Total Protein Albumin Valproic Acid [place] 02/22/24 02/22/24 02/23/24 20:18 20:41 08:35 Sodium 139 Potassium 4.1 Chloride 106 Carbon Dioxide 26 Anion Gap 11 L BUN 15 Creatinine 0.70 Estim Creat Clear Calc 123.9 Estimated GFR > 60 POC Glucose 173 H 144 H Random Glucose 138 H Calcium 9.3 Total Bilirubin 0.2 Direct Bilirubin < 0.2 AST 14 ALT 18 Alkaline Phosphatase 141 H Ammonia Total Protein 7.8 Albumin 4.2 Valproic Acid 56.2 [place] 0.30 L Imaging Radiology Impressions: ITS Impressions KUB X-Ray 02/12/24 14:18 IMPRESSION: Moderate constipation. No acute process seen. Medications Medications Current Medications Acetaminophen (Acetaminophen 325 Mg Tablet) 650 mg PO Q6H PRN PRN Reason: Headache/Pain Mild Scale (1-3) Last Admin: 02/22/24 15:58 Dose: 650 mg Al Hydroxide/Mg Hydroxide (Magnesium Hydrox/Alum Hydrox 30 Ml Oral.Susp) 30 ml PO Q6H PRN PRN Reason: Heartburn/Nausea Last Admin: 02/22/24 16:00 Dose: 30 ml Benzocaine (Throat Lozenge, Medicated Lozenge) 1 lozenge MUCOUS MEM Q2H PRN PRN Reason: Sore Throat Last Admin: 02/18/24 20:01 Dose: 1 lozenge Divalproex Sodium (Divalproex Sodium Er 500 Mg Tab.Er.24h) 1,500 mg PO BEDTIME [facility] Last Admin: 02/22/24 21:24 Dose: 1,500 mg Empagliflozin (Empagliflozin 10 Mg Tablet) 10 mg PO DAILY [facility] Last Admin: 02/23/24 08:53 Dose: 10 mg Hydroxyzine HCl (Hydroxyzine Hcl 50 Mg Tablet) 50 mg PO Q6H PRN PRN Reason: Anxiety Last Admin: 02/22/24 21:25 Dose: 50 mg [place] Citrate ([place] Citrate Oral Anayeli 300 Mg (8 Meq)/5 Ml) 600 mg PO BID [facility] Last Admin: 02/23/24 08:53 Dose: 600 mg Magnesium Hydroxide (Milk Of Magnesia 30 Ml Oral.Susp) 30 ml PO DAILY PRN PRN Reason: Constipation Last Admin: 02/15/24 11:04 Dose: 30 ml Nicotine (Nicotine 21 Mg Patch.Td24) 21 mg TRANSDERMA DAILY PRN PRN Reason: smoking cessation Last Admin: 02/15/24 10:56 Dose: 21 mg Nicotine Polacrilex (Nicotine Polacrilex 2 Mg Gum) 4 mg BUCCAL Q2H PRN PRN Reason: nicotine cravings Last Admin: 02/23/24 00:35 Dose: 4 mg Olanzapine (Olanzapine 5 Mg Tablet) 5 mg PO Q4H PRN PRN Reason: agitation Last Admin: 02/23/24 00:33 Dose: 5 mg Omeprazole (Omeprazole 20 Mg Capsule.Dr) 20 mg PO BID@0700,2000 [facility] Last Admin: 02/23/24 08:53 Dose: 20 mg Ondansetron HCl (Ondansetron Odt 4 Mg Tab.Rapdis) 4 mg TRANSLINGU Q8H PRN PRN Reason: Nausea Last Admin: 02/22/24 21:25 Dose: 4 mg Paliperidone Palmitate (Paliperidone Palmitate 156 Mg/Ml Syringe) 156 mg IM ONCE ONE Stop: 02/25/24 09:01 Propranolol HCl (Propranolol Hcl 10 Mg Tablet) 10 mg PO DAILY ALFRED; Protocol Last Admin: 02/23/24 08:53 Dose: 10 mg Senna/Docusate Sodium (Sennosides/Docusate Sodium Tablet) 1 tab PO BEDTIME ALFRED Last Admin: 02/22/24 21:24 Dose: 1 tab Trazodone HCl (Trazodone Hcl 50 Mg Tablet) 50 mg PO BEDTIME MRX1 PRN PRN Reason: Insomnia Last Admin: 02/23/24 00:33 Dose: 50 mg Allergies Allergies Allergy/AdvReac Type Severity Reaction Status Date / Time No Known Allergies Allergy Verified 01/20/24 17:37 Assessment & Plan Assessment & Plan (1) Bipolar I disorder with mood-congruent psychotic features: Status: Acute Code(s): F31.9 - Bipolar disorder, unspecified Plan at admission, pt was started on thorazine 200 QHS while zyprexa 20 QHS was DCed, reasons unclear. continue thorazine for now until better understood. pt does not appear lithium toxic and renal fxn WNL. will check lithium tomorrow night. restart/continue home medications otherwise. 01/21: Met with tax evaluator present. Pt spontaneously laughing at times; appears to be responding to internal stimuli. Guarded. Responding with one words answers to questions. Pt reports feeling okay . denies SI/HI/VH/AH. keeping to self. 01/22: Pt laying in bed, staring at wall away from T/W and early childhood. Pt not responding to questions despite numerous attempts. Pt refused medications and vital signs this morning. Continue to encourage medication compliance. 01/23: Met with tax evaluator present. Pt laying in bed, staring at T/W and early childhood but not responding to questions despite numerous attempts. Pt medication compliant this morning. observed eating breakfast. keeping to self. 01/24: no change in presentation. check lithium level tomorrow delmi. not consistently taking neuroleptics but IS consistently taking lithium. 01/25: selectively mute. per early childhood collateral, he was with her when financial services met with her yesterday and she was fully verbal and collaborative. labs tonight. continue current mgmt. 01/26: mildly more communicative today. lithium level 0.36, BMP WNL. increase lithium dosing tonight. 01/27: more responsive and verbal today. continue current mgmt. 01/29/2024: lithium just increased 01/27/2024. No changes to current plan 01/29: schedule olanzapine bedtime 5mg 01/30: DC thorazine, increase zyprexa to 10 at HS. mild improvement in the past week. 01/31: UA not strongly indicative of UTI; will forego Tx at present. increase HS zydis to 15 mg. 02/01: mild improvements sustained. sedated in morning. continue current mgmt for now. check lithium level. 02/02: lithium level trending down despite dose increase. recheck lithium. otherwise continue current mgmt. continues improved. 02/03: mild improvement. switch lithium to liquid formulation due to lack of increase in serum level with increase in PO dosing. otherwise continue current mgmt. 02/04: Continue current regimen and plans 02/05: Continue current regimen and plans. Zofran ordered 02/06: Active on unit, observed responding to internal stimuli. tax evaluator present. laughing inappropriately during conversation. Pt reports feeling sad and nervous ; pt did not elaborate. Pt reports suicidal ideation with no plan. she denies HI/VH/AH. [place] level to be drawn tomorrow morning. 02/07: Active on unit, observed responding to internal stimuli. tax evaluator present. laughing inappropriately during conversation. Pt continues to report feeling sad and nervous ; but does not elaborate when asked to. mumbling throughout conversation. Pt denies SI/HI/AH. She reports having a visual hallucinations last night of a woman dressed in all white . Pt was observed walking out of shower room with [facility] front open and only wearing mesh hospital underwear. Staff escorted pt to room to put on clothing. [place] level 0.38 on 02/08/24. 02/08: tax evaluator present. pt continues to laugh inappropriately during conversation. mumbling throughout conversation; when asked what is she mumbling, pt does not answer. Pt denies SI/HI/AH/VH. [place] level 0.38 on 02/08/24. [place] increased to 600mg PO BID 02/09: continues to laugh inappropriately throughout the day. mumbling throughout conversation; pt was observed stating, leave me alone while looking to the side of her where no one was standing. When asked if pt was experience hallucinations, pt became quiet, stood up and stated, I don't feel good. I have to go ; and left office. public health worker, iJllian, was able to speak to patient's mother, who reported pt has been stable on Depakote and Invega Sustenna in previous hospitalizations. Start: Depakote 250mg PO BID Invega 3mg PO daily Decrease: Zyprexa to 10mg PO bedtime 02/10: continue current tx plan. 02/11 increase olanzapine to 20mg po qhs and increase paliperidone to 6mg po qhs. 02/12 continue tx. 02/13: lithium 0.75, ammonia 44. increase VPA from 250 BID to 1000 QHS. increase PRNs for agitation. start ativan 2 mg QHS for insomnia (no sleep past 2 nights). T/C increase of invega. lithium at therapeutic level but pt appears more overtly psychotic than prior. increase omep to 20 BID for GERD. PT consult for LBP. 02/14: PT rec to F/U outpt. GERD complaint continues. tired in morning. move toward invega/VPA combo. decrease zyprexa from 20 to 10 at bedtime, move invega 6 PO to HS. will plan to increase VPA to 1500 mg tomorrow. 02/15: decr zyprexa to 5 at HS, incr invega to 9 QHS. incr VPA to 1500 QHS. otherwise continue current mgmt. 02/16: DC zyprexa. continue invega 9 QHS and VPA 1500 QHS. period of animation today followed by torpor. trending improved. 02/17: cogent, organized, pleasant, consistent today. slept well. decrease HS ativan to 1 mg from 2 mg. increase HS invega to 12 mg. plan to give IM early next week. tentatively planning for DC home late next week. 02/18: continue current management and treatment plan. 02/19: continue current management and treatment plan. 02/20: DC PO invega, start ERVIN 234 mg today. check labs tonight. planning for discharge home later this week. 02/21: continues much improved. will get second dose of invega, 156, on wednesday prior to discharge. decrease bowel regimen to once daily due to c/o painful stools. labs were not drawn last night and were re-ordered for tonight. 02/22: VPA 56.2, lithium 0.3. continue current mgmt. gains continue. planning to discharge wednesday. Reason for continued inpatient stay Substantial Risk for: inability to function and rapid decompensation Time Spent With Patient Time: Total time managing care of this patient today _25___ minutes.
[2024-02-23 20:00] VITALS: BP 134/76; PULSE 112; RESP 16; TEMP 36.5; O2SAT 96
[2024-02-23] MEDS: Divalproex Sodium ER 500 MG TAB.ER.24H 1500 MG PO (20:34)
[2024-02-23] MEDS: hydrOXYzine HCL 50 MG TABLET PO (20:35)
[2024-02-23] MEDS: Sennosides/Docusate Sodium TABLET 1 TAB PO (20:35)
[2024-02-24 00:16] LABS: Glucose, Whole Blood 199 mg/dL (60-115)
[2024-02-24] MEDS: Omeprazole 20 MG CAPSULE.DR PO ×2 (06:49→20:55)
[2024-02-24 07:00] VITALS: BMI 31.0
[2024-02-24 07:49] VITALS: BP 109/59; PULSE 84; RESP 14; TEMP 37.1; O2SAT 84
[2024-02-24 08:45] LABS: Glucose, Whole Blood 156 mg/dL (60-115)
[2024-02-24] MEDS: Empagliflozin 10 MG TABLET PO (09:17)
[2024-02-24] MEDS: Propranolol HCL 10 MG TABLET PO (09:17)
--- NOTE | 2024-02-24 12:27 | P.DS_ITS ---
DS: Providers Provider Date of Service: 02/24/24 Date of admission: 01/20/24 16:54 Primary care physician: Unknown Physician Consults: 01/20/24 17:43 Consult to Hospitalist Routine Comment: Consulting Provider: Hospitalist Reason For Exam: admission physical DS: Diagnosis Discharge Diagnosis (1) Bipolar I disorder with mood-congruent psychotic features: Status: Acute DS: Medications Discharge Medications Home Medications: Previous Rx's ?Medication ?Instructions ?Recorded divalproex 500 mg tablet,extended 1,500 mg (3 x 500 mg) PO BEDTIME 02/24/24 release 24 hr 30 days #90 tabs empagliflozin 10 mg tablet 10 mg PO DAILY 30 days #30 tabs 02/24/24 (Jardiance) hydroxyzine HCl 50 mg tablet 50 mg PO TID PRN Anxiety 30 days 02/24/24 #90 tabs lithium carbonate 300 mg 600 mg (2 x 300 mg) PO BID 30 days 02/24/24 tablet,extended release #120 tabs nicotine (polacrilex) 4 mg gum 4 mg buccal Q2H PRN nicotine 02/24/24 cravings 30 days #100 ea nicotine 21 mg/24 hr daily 21 mg transdermal DAILY PRN 02/24/24 transdermal patch smoking cessation 28 days #28 ea olanzapine 5 mg tablet 5 mg PO DAILY PRN agitation 30 02/24/24 days #30 tabs omeprazole 20 mg capsule,delayed 20 mg PO BID@0700,2000 30 days #60 02/24/24 release caps ondansetron 4 mg disintegrating 4 mg translingual DAILY PRN Nausea 02/24/24 tablet 30 days #30 tabs paliperidone palmitate 234 mg/1.5 234 mg (1.5 mL) IM Q30D 30 days 02/24/24 mL intramuscular syringe (Invega #1.5 mL Sustenna) propranolol 10 mg tablet 10 mg PO DAILY 30 days #30 tabs 02/24/24 sennosides 8.6 mg-docusate sodium 1 tab PO BEDTIME 30 days #30 tabs 02/24/24 50 mg tablet (Senna Plus) Mental Status Exam Mental Status Exam Narrative: behavior is cooperative and calm; dressed in casual attire; affect is full range, normo-intense, non-labile; good eye contact; Speech is normal rate, amount, clear; thoughts organized; mood euthymic; no SI/HI/AH/VH. Data Data Completed and Pending Completed studies during hospitalization [Text1]: 02/18/24 02/19/24 02/19/24 20:06 08:34 21:04 Sodium Potassium Chloride Carbon Dioxide Anion Gap BUN Creatinine Estim Creat Clear Calc Estimated GFR POC Glucose 204 H 126 H 187 H Random Glucose Calcium Total Bilirubin Direct Bilirubin AST ALT Alkaline Phosphatase Ammonia Total Protein Albumin Valproic Acid Shoshoni 02/20/24 02/20/24 02/20/24 09:26 21:21 23:17 Sodium Potassium Chloride Carbon Dioxide Anion Gap BUN Creatinine Estim Creat Clear Calc Estimated GFR POC Glucose 136 H 219 H 135 H Random Glucose Calcium Total Bilirubin Direct Bilirubin AST ALT Alkaline Phosphatase Ammonia Total Protein Albumin Valproic Acid Shoshoni 02/21/24 02/21/24 02/21/24 09:38 13:10 20:37 Sodium Potassium Chloride Carbon Dioxide Anion Gap BUN Creatinine 0.85 Estim Creat Clear Calc 102.1 Estimated GFR > 60 POC Glucose 189 H 150 H Random Glucose Calcium Total Bilirubin Direct Bilirubin AST ALT Alkaline Phosphatase Ammonia Total Protein Albumin Valproic Acid Shoshoni 02/22/24 02/22/24 02/22/24 08:36 20:17 20:18 Sodium 139 Potassium 4.1 Chloride 106 Carbon Dioxide 26 Anion Gap 11 L BUN 15 Creatinine 0.70 Estim Creat Clear Calc 123.9 Estimated GFR > 60 POC Glucose 145 H Random Glucose 138 H Calcium 9.3 Total Bilirubin 0.2 Direct Bilirubin < 0.2 AST 14 ALT 18 Alkaline Phosphatase 141 H Ammonia 49 Total Protein 7.8 Albumin 4.2 Valproic Acid 56.2 Shoshoni 0.30 L 02/22/24 02/23/24 02/23/24 20:41 08:35 20:16 Sodium Potassium Chloride Carbon Dioxide Anion Gap BUN Creatinine Estim Creat Clear Calc Estimated GFR POC Glucose 173 H 144 H 199 H Random Glucose Calcium Total Bilirubin Direct Bilirubin AST ALT Alkaline Phosphatase Ammonia Total Protein Albumin Valproic Acid Shoshoni 02/24/24 08:21 Sodium Potassium Chloride Carbon Dioxide Anion Gap BUN Creatinine Estim Creat Clear Calc Estimated GFR POC Glucose 156 H Random Glucose Calcium Total Bilirubin Direct Bilirubin AST ALT Alkaline Phosphatase Ammonia Total Protein Albumin Valproic Acid Shoshoni 01/31/24 18:51 Urine clean catch - Clean Catch Midstream Urine Culture - Final Strep agalactiae (Grp B) Imaging Diagnostic Imaging Impressions KUB X-Ray 02/12/24 14:18 IMPRESSION: Moderate constipation. No acute process seen. DS: Summary Hospital Course Hospital Course: per 01/20 admission note: HPI Narrative: per crisis eval, pt presented to [facility] ED with her step-father and her brother due to their concerns for her behavior at home. she was described as being more confrontational and arguing over things that have not occurred. step-father was concerned she may not have been taking her medications or that since she was recently discharged from another inpatient stay, medication changes have not been working for her. it was reported she may not have slept for several nights after leaving her most recent inpatient stay. pt denied psych Sx but appeared paranoid to crisis staff, apparently RIS and laughing inappropriately. she did report SI with plan to jump from family's second floor porch prior to arrival in the ED but denied SI once in the ED. labs concerning for UTI, given keflex in ED. on interview on mental health unit, pt largely non-verbal. when verbal very soft responses, nearly uniformly mono-syllabic. does communicate somewhat with nods and shakes of the head. does not provide answers to most questions, but does indicate she has no SI/HI/AVH. however, she appears distracted quite often and slowed, and also had several instances of spontaneous laughing. she was informed of plan to continue her on her home medications for now, to which she did not object. Past Psychiatric History: hosps: pt reports 2-3 prior. reportedly was at [facility] for 3 months just prior to current presentation. SA: pt indicates in the affirmative but cannot recall how many or when SIB: pt indicates yes, but does not elaborate. per notes, h/o punching self. outpt: unknown Medical Evaluation Reviewed: Hospitalist Julien Pending [facility] Family History: unknown Social History: lives with her mother, brother, and step-father. came from [place] two years ago. Substance History: tobacco - denies alcohol - denies cannabis - indicates she uses denies use of cocaine, opioids, other substances of abuse Trauma History: unknown Precis: 01/20: at admission, pt was started on thorazine 200 QHS while zyprexa 20 QHS was DCed, reasons unclear. continue thorazine for now until better understood. pt does not appear lithium toxic and renal fxn WNL. will check lithium tomorrow night. restart/continue home medications otherwise. 01/21: Met with educational interpreter present. Pt spontaneously laughing at times; appears to be responding to internal stimuli. Guarded. Responding with one words answers to questions. Pt reports feeling okay . denies SI/HI/VH/AH. keeping to self. 01/22: Pt laying in bed, staring at wall away from T/W and science interpreter. Pt not responding to questions despite numerous attempts. Pt refused medications and vital signs this morning. Continue to encourage medication compliance. 01/23: Met with educational interpreter present. Pt laying in bed, staring at T/W and science interpreter but not responding to questions despite numerous attempts. Pt medication compliant this morning. observed eating breakfast. keeping to self. 01/24: no change in presentation. check lithium level tomorrow delmi. not consistently taking neuroleptics but IS consistently taking lithium. 01/25: selectively mute. per science interpreter collateral, he was with her when financial services met with her yesterday and she was fully verbal and collaborative. labs tonight. continue current mgmt. 01/26: mildly more communicative today. lithium level 0.36, BMP WNL. increase lithium dosing tonight. 01/27: more responsive and verbal today. continue current mgmt. 01/29/2024: lithium just increased 01/27/2024. No changes to current plan 01/29: schedule olanzapine bedtime 5mg 01/30: DC thorazine, increase zyprexa to 10 at HS. mild improvement in the past week. 01/31: UA not strongly indicative of UTI; will forego Tx at present. increase HS zydis to 15 mg. 02/01: mild improvements sustained. sedated in morning. continue current mgmt for now. check lithium level. 02/02: lithium level trending down despite dose increase. recheck lithium. otherwise continue current mgmt. continues improved. 02/03: mild improvement. switch lithium to liquid formulation due to lack of increase in serum level with increase in PO dosing. otherwise continue current mgmt. 02/04: Continue current regimen and plans 02/05: Continue current regimen and plans. Zofran ordered 02/06: Active on unit, observed responding to internal stimuli. educational interpreter present. laughing inappropriately during conversation. Pt reports feeling sad and nervous ; pt did not elaborate. Pt reports suicidal ideation with no plan. she denies HI/VH/AH. Shoshoni level to be drawn tomorrow morning. 02/07: Active on unit, observed responding to internal stimuli. educational interpreter present. laughing inappropriately during conversation. Pt continues to report feeling sad and nervous ; but does not elaborate when asked to. mum zan throughout conversation. Pt denies SI/HI/AH. She reports having a visual hallucinations last night of a woman dressed in all white . Pt was observed walking out of shower room with [facility] front open and only wearing mesh hospital underwear. Staff escorted pt to room to put on clothing. Shoshoni level 0.38 on 02/08/24. 02/08: educational interpreter present. pt continues to laugh inappropriately during conversation. mumbling throughout conversation; when asked what is she mumbling, pt does not answer. Pt denies SI/HI/AH/VH. Shoshoni level 0.38 on 02/08/24. Shoshoni increased to 600mg PO BID 02/09: continues to laugh inappropriately throughout the day. mumbling throughout conversation; pt was observed stating, leave me alone while looking to the side of her where no one was standing. When asked if pt was experience hallucinations, pt became quiet, stood up and stated, I don't feel good. I have to go ; and left office. engineering production worker, Jillian, was able to speak to patient's mother, who reported pt has been stable on Depakote and Invega Sustenna in previous hospitalizations. Start: Depakote 250mg PO BID Invega 3mg PO daily Decrease: Zyprexa to 10mg PO bedtime 02/10: continue current tx plan. 02/11 increase olanzapine to 20mg po qhs and increase paliperidone to 6mg po qhs. 02/12 continue tx. 02/13: lithium 0.75, ammonia 44. increase VPA from 250 BID to 1000 QHS. increas e PRNs for agitation. start ativan 2 mg QHS for insomnia (no sleep past 2 nights). T/C increase of invega. lithium at therapeutic level but pt appears more overtly psychotic than prior. increase omep to 20 BID for GERD. PT consult for LBP. 02/14: PT rec to F/U outpt. GERD complaint continues. tired in morning. move toward invega/VPA combo. decrease zyprexa from 20 to 10 at bedtime, move invega 6 PO to HS. will plan to increase VPA to 1500 mg tomorrow. 02/15: decr zyprexa to 5 at HS, incr invega to 9 QHS. incr VPA to 1500 QHS. otherwise continue current mgmt. 02/16: DC zyprexa. continue invega 9 QHS and VPA 1500 QHS. period of animation today followed by torpor. trending improved. 02/17: cogent, organized, pleasant, consistent today. slept well. decrease HS ativan to 1 mg from 2 mg. increase HS invega to 12 mg. plan to give IM early next week. tentatively planning for DC home late next week. 02/18: continue current management and treatment plan. 02/19: continue current management and treatment plan. 02/20: DC PO invega, start ERVIN 234 mg today. check labs tonight. planning for discharge home later this week. 02/21: continues much improved. will get second dose of invega, 156, on wednesday prior to discharge. decrease bowel regimen to once daily due to c/o painful stools. labs were not drawn last night and were re-ordered for tonight. 02/22: VPA 56.2, lithium 0.3. continue current mgmt. gains continue. planning to discharge wednesday. 02/23: safe, stable. 02/24: discharged as per plan. Time Spent with Patient Time attestation: Total time managing care of this patient today __35__ minutes. Discharge Plan Discharge Anticipated Discharge Date/Time: 02/25/24 10:30 Patient Disposition: Home, Self-Care Discharge Diagnosis: Bipolar I Disorder Referrals: Silke Christianson (Therapy) [Other] - 02/29/24 2:00 pm (IN OFFICE APPOINTMENT -Once you attend this therapy appointment, a psychiatry appointment will be scheduled for you. ) Psychiatry [Other] - 1 Week (*Once you attend the therapy appointment on 02/29/24, a psychiatry appointment will be scheduled for you. ) Physician,Unknown J [Primary Care Provider] - 1 Week Discharge Medications: New nicotine 21 mg/24 hr Patch 24 Hour 21 mg transdermal DAILY PRN (Reason: smoking cessation) 28 Days Qty: 28 0RF nicotine (polacrilex) 4 mg gum 4 mg buccal Q2H PRN (Reason: nicotine cravings) 30 Days Qty: 100 0RF sennosides-docusate sodium [Senna Plus] 8.6-50 mg Tablet 1 tab PO BEDTIME 30 Days Qty: 30 0RF olanzapine 5 mg Tablet 5 mg PO DAILY PRN (Reason: agitation) 30 Days Qty: 30 0RF hydroxyzine HCl 50 mg Tablet 50 mg PO TID PRN (Reason: Anxiety) 30 Days Qty: 90 0RF propranolol 10 mg Tablet 10 mg PO DAILY 30 Days Qty: 30 0RF Protocol: Hold for SBP/HR < HOLD for SBP < : 90 HOLD for HR < : 60 divalproex 500 mg Tablet Extended Release 24 Hr 1,500 mg PO BEDTIME 30 Days Qty: 90 0RF omeprazole 20 mg Capsule,Delayed Release(Dr/Ec) 20 mg PO BID@0700,2000 30 Days Qty: 60 0RF ondansetron 4 mg Tablet,Disintegrating 4 mg translingual DAILY PRN (Reason: Nausea) 30 Days Qty: 30 0RF Jardiance 10 mg Tablet 10 mg PO DAILY 30 Days Qty: 30 0RF lithium carbonate 300 mg tablet extended release 600 mg PO BID 30 Days Qty: 120 0RF Invega Sustenna 234 mg/1.5 mL syringe 234 mg IM Q30D 30 Days Qty: 1.5 0RF Rx Instructions: last given 02/25/24. Discharge Orders: Discharge Order (Routine); Ordered 02/25/24 Ordered By: Sal Cunningham Diet: Diabetic diet Activity on Discharge: As tolerated Stand Alone Forms: Patient Portal Discharge page, Community Support Print Language: Barbadian Care Plan Goals: remain safe and stable in the outpatient treatment setting Health Concerns: Diabetes Mellitus Plan of Treatment: take medications as prescribed, attend appointments as scheduled Assessment: not at imminent risk of harm to self or others Discharge Date/Time: 02/25/24 14:00
[2024-02-24] MEDS: Nicotine Polacrilex 2 MG GUM 4 MG BUCCAL ×2 (17:39→20:20)
[2024-02-24 20:00] VITALS: BP 123/74; PULSE 96; RESP 16; TEMP 36.8; O2SAT 97
[2024-02-24] MEDS: hydrOXYzine HCL 50 MG TABLET PO (20:18)
[2024-02-24] MEDS: Sennosides/Docusate Sodium TABLET 1 TAB PO (20:19)
[2024-02-24] MEDS: Divalproex Sodium ER 500 MG TAB.ER.24H 1500 MG PO (20:19)
[2024-02-24 21:10] LABS: Glucose, Whole Blood 216 mg/dL (60-115)
[2024-02-25] MEDS: traZODone HCL 50 MG TABLET PO (00:13)
[2024-02-25] MEDS: Nicotine Polacrilex 2 MG GUM 4 MG BUCCAL ×2 (00:13→12:21)
[2024-02-25] MEDS: Omeprazole 20 MG CAPSULE.DR PO (06:31)
[2024-02-25 08:30] VITALS: BP 113/59; PULSE 73; RESP 14; TEMP 36.8; O2SAT 97
[2024-02-25 09:59] VITALS: BP 113/60; PULSE 73
[2024-02-25] MEDS: Propranolol HCL 10 MG TABLET PO (09:59)
[2024-02-25] MEDS: Empagliflozin 10 MG TABLET PO (09:59)
[2024-02-25] MEDS: Paliperidone Palmitate 156 MG/ML SYRINGE IM (10:16)
[2024-02-25 11:32] LABS: Glucose, Whole Blood 147 mg/dL (60-115)
[2024-02-25 11:32] LABS: Glucose, Whole Blood 211 mg/dL (60-115)
== END 2024-02-25 14:00 | disposition home or self-care (01) | DRG 753 ==
PROVIDERS: Psychiatry & Neurology Psychiatry; Registered Nurse; Admitting Provider Psychiatry & Neurology Psychiatry; Visit Provider Psychiatry & Neurology Psychiatry
DX: F31.9 Bipolar disorder, unspecified (principal); R45.851 Suicidal ideations; F94.0 Selective mutism; Z79.899 Other long term (current) drug therapy
CPT/HCPCS: 36415; 74018; 80048; 80051; 80053; 80061; 80076; 80164; 80178; 81001; 81003; 82140; 82565; 82947; 83036; 84443; 84520; 87086; 87147; 92610; 97161; J2426

== ENCOUNTER → 2024-01-20 16:54 | Outpatient (BNV) | payer OTHER, SELFPAY | PROVIDERS: Admitting Provider Psychiatry & Neurology Psychiatry; Visit Provider Psychiatry & Neurology Psychiatry | DX: F31.64 Bipolar disorder, current episode mixed, severe, with psychotic features (principal) | CPT/HCPCS: 90792; 99231; 99232; 99233 ==

== ENCOUNTER → 2024-01-20 16:54 | Outpatient (BNV) | payer MEDICAID, SELFPAY | PROVIDERS: Admitting Provider Psychiatry & Neurology Psychiatry; Visit Provider Student in an Organized Health Care Education/Training Program | DX: F31.9 Bipolar disorder, unspecified (principal) | CPT/HCPCS: 99222 ==